=== PATIENT | male | born 1965 | race Hispanic/Latino ===

== ENCOUNTER 2017-10-12 20:24 | Inpatient (IN) | payer MEDICAID, OTHER ==
[2017-10-12 20:26] VITALS: BMI 31.5
--- NOTE | 2017-10-12 20:48 | ED PDOC ---
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 Sister is at bedside and states that brother was at his home with his other brother watching basketball when he stated he did not feel well. Shortly after he started seizing described as shaking all over and foaming at the mouth. Ambulance was called. Patient was combative post ictal and was given 5mg of Versed in the ambulance. Continue to be combative. Sister is unaware if the patient was drinking today. Sister states that the patients last seizure was in May of last year. (Stevenson Jack) Past Medical History - Infectious Disease Hx of Infectious Diseases: None - Tetanus Immunization Tetanus Immunization: Unknown - Cardiac Hx Hypertension: Yes - Pulmonary Hx Respiratory Disorders: Yes Other/Comment: recently lung and stomach nodules found - Neurological Hx Seizures: Yes Other/Comment: tramatic brain injury. - Integumentary Other/Comment: old and new kaiden to back of head, scrapes ad abrasions to arms and legs - Musculoskeletal/Rheumatological Hx Falls: Yes Other/Comment: TBI 08/23 fall 01/25/2014 - Gastrointestinal Hx Gastrointestinal Disorders: Yes - Genitourinary/Gynecological Hx Prostate Cancer: Yes (ONE TESTICLE REMOVED) - Psychiatric Hx Bipolar Disorder: Yes Hx Substance Use: No - Past Surgical History Past Surgical History: Unable to Obtain - Surgical History Hx Musculoskeletal Surgery: Yes (cancerous lymph node found on spine) - Anesthesia Hx Anesthesia Reactions: No Hx Malignant Hyperthermia: No - Suicidal Assessment Feels Threatened In Home Enviroment: No <Stevenson Jack - Last Filed: 10/12/17 22:24> - Provider Review Nursing Documentation Reviewed: Yes <Bakari Humphreys - Last Filed: 10/13/17 00:29> Family/Social History Family/Social History: Unknown Family HX Smoking Status: Heavy Smoker > 10 Cigarettes Daily Hx Alcohol Use: Yes (drinking heavily last couple of days) Hx Substance Use: No Hx Substance Use Treatment: No <MarcieStevenson - Last Filed: 10/12/17 22:24> - Physician Review Nursing Documentation Reviewed: Yes Family/Social History: Unknown Family HX <PetrBakari - Last Filed: 10/13/17 00:29> Allergies/Home Meds <FelixjosebradenStevenson - Last Filed: 10/12/17 22:24> <PetrBakari - Last Filed: 10/13/17 00:29> Allergies/Adverse Reactions: Allergies No Known Allergies Allergy (Verified 10/12/17 20:25) Home Medications: Home Meds Medication Instructions Recorded Confirmed Divalproex Sodium [Divalproex 250 mg PO BID 10/12/17 10/12/17 Sodium ER] Review of Systems - Review of Systems Systems not reviewed;Unavailable: Altered Mental Status Constitutional: Other (prior to siare patient stated he "was not feeling well ") <MarcieStevenson - Last Filed: 10/12/17 22:24> Physical Exam - Physical Exam Physical Exam Limitations: Altered Mental Status Vital Signs Reviewed: Yes Temperature: Afebrile Blood Pressure: Normal Pulse: Tachycardic Respiratory Rate: Normal Appearance: Positive for: Ill-Appearing Pain Distress: None Mental Status: Positive for: Confused. No: Alert and Oriented X 3 - Systems Exam Head: Present: Atraumatic, Normocephalic Pupils: No: Sluggish, Non-Reactive, Pinpoint Extroacular Muscles: Present: EOMI Conjunctiva: Present: Normal Mouth: Present: Moist Mucous Membranes Neck: Present: Normal Range of Motion Respiratory/Chest: Present: Clear to Auscultation, Good Air Exchange. No: Respiratory Distress, Accessory Muscle Use Cardiovascular: Present: Regular Rate and Rhythm, Normal S1, S2, Tachycardic. No: Murmurs Abdomen: Present: Normal Bowel Sounds. No: Tenderness, Distention, Peritoneal Signs Upper Extremity: Present: Normal Inspection Lower Extremity: Present: Normal Inspection Neurological: Present: GCS=15, CN II-XII Intact, Speech Normal Skin: Present: Warm, Dry, Normal Color. No: Rashes Psychiatric: Present: Alert. No: Oriented x 3 <MarcieStevenson - Last Filed: 10/12/17 22:24> Vital Signs Pulse Resp BP Pulse Ox 10/12/17 20:49 112 H 18 138/85 95 Medical Decision Making <JavierStevenson feliciano - Last Filed: 10/12/17 22:24> - Lab Interpretations I have reviewed the lab results: Yes - RAD Interpretation Optical Technician: Radiologist - EKG Interpretation Interpreted by ED Physician: Yes Type: 12 lead EKG <Bakari Humphreys - Last Filed: 10/13/17 00:29> ED Course and Treatment: 10/12/17 20:48 patient continue to be combative in the ED. 2mg of Ativan was given. Patient proceeded to become less combative. Will check labs, alcohol level, UDS (Stevenson Jack) Impression: Pt seen and evaluated with medical records analyst. Aware and agree with HPI, clinical findings, plan, and managment. Pt, whose past medical history includes seizure disorder and alcohol abuse, presented s/p seizure today. Plan: -- CT Head w/o contrast -- Labs, VBG, alcohol level, blood cultures -- Urinalysis, urine cultures, urine drug screen -- Ativan -- IV fluids -- Reassess and disposition 10/12/17 21:58 CT Head shows: Brain: Mild atrophy. No intracranial hemorrhage. No mass. Mild encephalomalacia within right frontal region. Mild encephalomalacia within right temporal region. No definite edema. Ventricles: No hydrocephalus. Bones/joints: No acute fracture. Soft tissues: Unremarkable. Vasculature: Mild atherosclerotic disease of intracranial arteries. Sinuses: Scattered minimal mucosal thickening. LEFT maxillary retention cyst. Mastoid air cells: No mastoid effusion. Orbits: Unremarkable as visualized. Dental: Periapical lucency compatible with dental disease. IMPRESSION: 1. No definite acute intracranial abnormality. 2. Incidental/non-acute findings are described above. 10/12/17 22:19 Case discussed with medical records analyst final operations technician, who is aware and agrees with plan. 10/12/17 22:[address] Jimenez, who is aware and agrees to evaluate pt for possible ICU admission. 10/12/17 23:[address] Jimenez, present in ER to evaluate pt. Pt will be admitted to Telemetry for recurrent seizures under the hospitalist service. (Bakari Humphreys) - Lab Interpretations Lab Results: 10/12/17 20:34 10/12/17 20:34 Lab Results 10/12/17 23:20: Urine Color Yellow, Urine Appearance Sl cloudy, Urine pH 6.0, Ur Specific [place] 1.015, Urine Protein Trace H, Urine Glucose (UA) Negative, Urine Ketones Trace H, Urine Blood Small H, Urine Nitrate Negative, Urine Bilirubin Negative, Urine Urobilinogen 0.2, Ur Leukocyte Esterase Negative, Urine RBC 1 - 3, Urine WBC 0 - 2, Ur Epithelial Cells 0 - 2, Urine Bacteria Few 10/12/17 23:20: Urine Opiates Screen Negative, Urine Methadone Screen Negative, Ur Barbiturates Screen Negative, Ur Phencyclidine Scrn Negative, Ur Amphetamines Screen Negative, U Benzodiazepines Scrn Positive, U Oth Cocaine Metabols Negative, U Cannabinoids Screen Positive H 10/12/17 21:42: pO2 160 H, VBG pH 7.39, VBG pCO2 27.0 L, VBG HCO3 16.3 L, VBG Total CO2 17.1 L, VBG O2 Sat (Calc) 99.5 H, VBG Base Excess -7.1 L, VBG Potassium 3.0 L, Glucose 141 H, Lactate 10.0 H*, FiO2 21.0, Sodium 128.0 L, Chloride 92.0 L, Venous Blood Potassium 3.0 L 10/12/17 20:34: Lactate Dehydrogenase 627, Total Creatine Kinase 298 H, CK-MB ( CK-2) 3.2, CK-MB (CK-2) % Cancelled, Troponin I < 0.01 10/12/17 20:34: Alcohol, Quantitative < 10 10/12/17 20:34: Sodium 132, Potassium 3.5 L, Chloride 91 L, Carbon Dioxide 7 L D , Anion Gap 38 H, BUN 4 L, Creatinine 0.8, Est GFR ( Amer) > 60, Est GFR (Non-Af Amer) > 60, Random Glucose 186 H, Calcium 9.5, Magnesium 1.9, Total Bilirubin 0.8, AST 137 H, ALT 87 H, Alkaline Phosphatase 83, Total Protein 8.2, Albumin 5.0 H, Globulin 3.1, Albumin/Globulin Ratio 1.6 10/12/17 20:34: WBC 10.2 D, RBC 4.30, Hgb 14.8, Hct 42.3, MCV 98.4, MCH 34.4, MCHC 35.0, RDW 12.9, Plt Count 119 L, MPV 11.8 H, Gran % 62.6, Lymph % (Auto) 27.7, [place] % (Auto) 8.9 H, Eos % (Auto) 0.3 L, Baso % (Auto) 0.5, Gran # 6.41, Lymph # (Auto) 2.8, [place] # (Auto) 0.9 H, Eos # (Auto) 0.0, Baso # (Auto) 0.05 10/12/17 20:28: POC Glucose (mg/dL) 188 H - RAD Interpretation Radiology Orders: 10/12/17 20:43 HEAD W/O CONTRAST [CT] Stat - Medication Orders Current Medication Orders: Amlodipine Besylate (Norvasc) 5 mg PO DAILY [facility] Divalproex Sodium (Depakote Dr (*Bid*)) 250 mg PO BID [facility] PRN Reason: Protocol Folic Acid (Folic Acid) 1 mg PO DAILY [facility] Heparin Sodium (Porcine) (Heparin) 5,000 units SC Q12 [facility]AND PRN Reason: Protocol Sodium Chloride (Sodium Chloride 0.9%) 2,000 mls @ 999 mls/hr IV .Q2H1M STA Stop: 10/13/17 01:10 Last Admin: 10/12/17 23:36 Dose: 999 mls/hr eMAR Start Stop Document 10/12/17 23:36 BOLIVAR (Rec: 10/12/17 23:36 BOLIVAR [id number]) Intravenous Solution Start Date 10/12/17 Start Time 23:36 End Date 10/12/17 Sodium Chloride (Sodium Chloride 0.9%) 1,000 mls @ 150 mls/hr IV .Q6H40M [facility] Levetiracetam (Keppra 500mg Ivpb) 500 mg in 100 mls @ 460 mls/hr IV Q12 ROLAND Last Admin: 10/12/17 23:35 Dose: 460 mls/hr eMAR Start Stop Document 10/12/17 23:35 BOLIVAR (Rec: 10/12/17 23:36 BOLIVAR [id number]) Intravenous Solution Start Date 10/12/17 Start Time 23:35 End Date 10/12/17 End time 23:50 Total Infusion Time 15 Insulin Human Regular (Humulin R Low) 0 units SC ACHS [facility] PRN Reason: Protocol Lorazepam (Ativan) 2 mg IVP Q6H PRN; Protocol PRN Reason: Seizure activity Nicotine (Nicoderm Cq) 1 patch TD DAILY [facility] Pantoprazole Sodium (Protonix Inj) 40 mg IVP DAILY [facility] Quetiapine Fumarate (Seroquel Xr) 200 mg PO DAILY [facility] PRN Reason: Protocol Thiamine HCl (Vitamin B1 Tab) 100 mg PO DAILY [facility] Discontinued Medications Sodium Chloride (Sodium Chloride 0.9%) 1,000 mls @ 1,000 mls/hr IV .Q1H STA Stop: 10/12/17 21:49 Last Admin: 10/12/17 20:38 Dose: 1,000 mls/hr eMAR Start Stop Document 10/12/17 20:38 BOLIVAR (Rec: 10/12/17 22:32 BOLIVAR [id number]) Intravenous Solution Start Date 10/12/17 Start Time 20:38 End Date 10/12/17 End time 21:08 Total Infusion Time 30 Sodium Chloride (Sodium Chloride 0.9%) 1,000 mls @ 999 mls/hr IV .Q1H1M STA Stop: 10/12/17 23:06 Last Admin: 10/12/17 22:31 Dose: 999 mls/hr eMAR Start Stop Document 10/12/17 22:31 BOLIVAR (Rec: 10/12/17 22:29 BOLIVAR [id number]) Intravenous Solution Start Date 10/12/17 Start Time 22:31 End Date 10/12/17 End time 23:31 Total Infusion Time 60 Lorazepam (Ativan) 2 mg IVP ONCE ONE PRN Reason: Protocol Stop: 10/12/17 20:30 Last Admin: 10/12/17 20:32 Dose: 2 mg IVP Administration Document 10/12/17 20:32 BOLIVAR (Rec: 10/12/17 20:50 BOLIVAR [id number]) Charges for Administration # of IVP Administrations 1 Lorazepam (Ativan) 2 mg IVP ONCE ONE PRN Reason: Protocol Stop: 10/12/17 20:40 Last Admin: 10/12/17 21:19 Dose: 2 mg IVP Administration Document 10/12/17 21:19 BOLIVAR (Rec: 10/12/17 21:19 BOLIVAR [id number]) Charges for Administration # of IVP Administrations 1 Potassium Chloride (Potassium Chloride Oral Soln) 40 meq PO STAT STA Stop: 10/12/17 23:10 - PA / DOCK WORKER / Resident Statement / has reviewed & agrees with the documentation as recorded. / has examined the patient and agrees with the treatment plan. <Bakari Humphreys - Last Filed: 10/13/17 00:29> Disposition/Present on Arrival - Present on Arrival Any Indicators Present on Arrival: No History of DVT/PE: No History of Uncontrolled Diabetes: No Urinary Catheter: Yes (inserted in er) History of Decub. Ulcer: No History Surgical Site Infection Following: None - Disposition Have Diagnosis and Disposition been Completed?: Yes Disposition Time: 22:24 Patient Plan: ICU <Stevenson Jack - Last Filed: 10/12/17 22:24> <Bakari Humphreys - Last Filed: 10/13/17 00:29> - Disposition Diagnosis: Seizure Patient Problems: Current Active Problems Problem Status Onset Seizure Acute Condition: GUARDED
[2017-10-12] MEDS ORDERED: Sodium Chloride 0.9% 1,000 ML IV STA ×2 (20:50→22:06)
[2017-10-12 20:57] LABS: BASO # 0.05 K/mm3 (0.0-2.0); BASO % 0.5 % (0.0-3.0); EOS % 0.3 % (1.5-5.0); GRAN # 6.41 (1.4-6.5); GRAN % 62.6 % (50.0-68.0); HEMOGLOBIN 14.8 g/dL (14.0-18.0); LYMPH # 2.8 (1.2-3.4); LYMPH % 27.7 % (22.0-35.0); MEAN CELL VOLUME 98.4 fl (80.0-105.0); MEAN CORPUSCULAR HEMOGLOBIN 34.4 pg (25.0-35.0); MEAN PLATELET VOLUME 11.8 fl (7.0-11.0); MONO # 0.9 (0.1-0.6); MONO % 8.9 % (1.0-6.0); RBC 4.3 10^6/uL (3.5-6.1); RED CELL DISTRIBUTION WIDTH 12.9 % (11.5-14.5); WHITE BLOOD COUNT 10.2 10^3/ul (4.5-11.0)
[2017-10-12 21:07] LABS: ALB/GLOB RATIO 1.6 (1.1-1.8); ALT/SGPT 87 U/L (7-56); BLOOD UREA NITROGEN 4 mg/dL (7-21); CALCIUM 9.5 mg/dL (8.4-10.5); GFR AFRICAN-AMERICAN > 60; GFR NON-AFRICAN AMERICAN > 60
[2017-10-12 21:36] LABS: AST/SGOT 137 U/L (17-59)
--- NOTE | 2017-10-12 21:57 | CT ---
EXAM: CT Head Without Intravenous Contrast CLINICAL HISTORY: 52 years old, male; Signs and symptoms; Other: Seizure TECHNIQUE: Axial computed tomography images of the head/brain without intravenous contrast. All CT scans at this facility use one or more dose reduction techniques, viz.: automated exposure control; ma/kV adjustment per patient size (including targeted exams where dose is matched to indication; i.e. head); or iterative reconstruction technique. Coronal and sagittal reformatted images were created and reviewed. COMPARISON: CT - HEAD W/O CONTRAST 2016-08-18 16:49 FINDINGS: Brain: Mild atrophy. No intracranial hemorrhage. No mass. Mild encephalomalacia within right frontal region. Mild encephalomalacia within right temporal region. No definite edema. Ventricles: No hydrocephalus. Bones/joints: No acute fracture. Soft tissues: Unremarkable. Vasculature: Mild atherosclerotic disease of intracranial arteries. Sinuses: Scattered minimal mucosal thickening. LEFT maxillary retention cyst. Mastoid air cells: No mastoid effusion. Orbits: Unremarkable as visualized. Dental: Periapical lucency compatible with dental disease. IMPRESSION: 1. No definite acute intracranial abnormality. 2. Incidental/non-acute findings are described above.
[2017-10-12 22:01] LABS: VENOUS BLOOD GAS BASE EXCESS -7.1 mmol/L (0.0-2.0); VENOUS BLOOD GAS PO2 160 mm/Hg (30-55); VENOUS BLOOD PH 7.39 (7.32-7.43)
[2017-10-12 22:24] LABS: TROPONIN I < 0.01 ng/mL
--- NOTE | 2017-10-12 22:56 | CP.PCM.HP ---
History of Present Illness - History of Present Illness History of Present Illness: CC: Seizure at home Patient is a 52 y/o Male with pmh of traumatic ICH, chronic alcohol abuse, gerd , htn, seizure disorders, heavy tobacco abuse, mood disorder, h/o metastatic testicular cancer s/p surgery, chemo and radiation presenting s/p seizure like activities at home. As per patient's sisters, patient was watching TV with his brother earlier today when he complained of abdominal pain, vomited multiple time, non bilious and non bloody. Then later on patient had tonic clonic seizure activity that lasted over 5 minutes, with foaming of the mouth. Denies bowel/bladder incontinent. Patient was combative post ictal, and was giving versed on the arrival of the ambulance. Patient was diagnosed with seizure over 5 years ago, had traumatic intracranial hemorrhage after sustaining trauma during the seizure in 2013, patient was at the time intubated, was trached and pegged and sent to group home ( trach and peg has since reversed). As per patient's sisters' since the trauma patient has been struggling with mood disorders, and have problems with recalls. According to sisters, patient's complaint with his antiepileptic meds for the most part, last seizure prior to this episode was in May because he missed a dose, denied missing his morning dose today. States patient used to be a heavy alcohol abuser, but have not had alcohol for a while. Patient is s/p ativan in the ED, thus patient appears very drowsy, but arousable , denies eating any new foods, denies fever or chills, no abdominal pain at this moment. Denies dysurea, no cp or sob. Patient sees Dr Doll (PMD), doesn't have a neurologist. Pharmacy: [facility]. PMHx: as stated above pshx: testicular surgery, abdominal surgery, trach and peg FMHx: positive for seizures in the family Social: Admits to heavy tobacco use, denies recent alcohol use, but admits to history of chronic alcohol, denies illicit drug use. Lived with his brother. Home meds: as per chart Allergy: nkda. Present on Admission - Present on Admission Any Indicators Present on Admission: No History of DVT/PE: No History of Uncontrolled Diabetes: No Urinary Catheter: No Decubitus Ulcer Present: No History Surgical Site Infection Following: None Review of Systems - Constitutional Constitutional: Lethargy. absent: Chills, Fatigue, Fever, Headache - EENT Eyes: absent: Blurred Vision Nose/Mouth/Throat: absent: Nasal Congestion, Sore Throat - Cardiovascular Cardiovascular: absent: Chest Pain, Chest Pain at Rest, Claudication, Diaphoresis, Orthopnea, Palpitations, Pedal Edema - Respiratory Respiratory: absent: Cough, Dyspnea, Hemoptysis, Wheezing - Gastrointestinal Gastrointestinal: absent: Abdominal Pain, Belching, Bloating, Cramping, Diarrhea , Dyspepsia - Genitourinary Genitourinary: absent: Difficulty Urinating, Dysuria, Hematuria, Nocturia - Musculoskeletal Musculoskeletal: Myalgias. absent: Back Pain, Muscle Weakness - Integumentary Integumentary: absent: Pruritus - Neurological Neurological: absent: Abnormal Hearing, Disequilibrium, Dizziness, Numbness, Headaches - Psychiatric Psychiatric: Anxiety - Endocrine Endocrine: absent: Fatigue, Palpitations - Hematologic/Lymphatic Hematologic: absent: Easy Bleeding Past Patient History - Infectious Disease Hx of Infectious Diseases: None - Tetanus Immunizations Tetanus Immunization: Unknown - Past Social History Smoking Status: Heavy Smoker > 10 Cigarettes Daily - CARDIAC Hx Hypertension: Yes - PULMONARY Hx Respiratory Disorders: Yes Other/Comment: recently lung and stomach nodules found - NEUROLOGICAL Hx Seizures: Yes Other/Comment: tramatic brain injury. - INTEGUMENTARY Other/Comment: old and new kaiden to back of head, scrapes ad abrasions to arms and legs - MUSCULOSKELETAL/RHEUMATOLOGICAL Hx Falls: Yes Other/Comment: TBI 08/23 fall 01/25/2014 - GASTROINTESTINAL Hx Gastrointestinal Disorders: Yes - GENITOURINARY/GYNECOLOGICAL Hx Prostate Cancer: Yes (ONE TESTICLE REMOVED) - PSYCHIATRIC Hx Bipolar Disorder: Yes Hx Substance Use: No - SURGICAL HISTORY Hx Musculoskeletal Surgery: Yes (cancerous lymph node found on spine) - ANESTHESIA Hx Anesthesia Reactions: No Hx Malignant Hyperthermia: No Meds Allergies/Adverse Reactions: Allergies Allergy/AdvReac Type Severity Reaction Status Date / Time No Known Allergies Allergy Verified 10/12/17 20:25 Physical Exam - Constitutional Appears: No Acute Distress, Older Than Stated Age, Confused (mild ), Chronically Ill - Head Exam Head Exam: ATRAUMATIC, NORMAL INSPECTION, NORMOCEPHALIC - Eye Exam Eye Exam: EOMI, Normal appearance, PERRL. absent: Scleral icterus Pupil Exam: NORMAL ACCOMODATION, PERRL - ENT Exam ENT Exam: Mucous Membranes Dry, Normal Exam Additional comments: No tongue bite noted. - Neck Exam Neck exam: Positive for: Normal Inspection - Respiratory Exam Respiratory Exam: Clear to Auscultation Bilateral, NORMAL BREATHING PATTERN. absent: Rales, Rhonchi, Wheezes, Respiratory Distress, Stridor - Cardiovascular Exam Cardiovascular Exam: REGULAR RHYTHM, RRR, +S1, +S2. absent: Bradycardia, Tachycardia, Gallop, Irregular Rhythm, Rubs, Systolic Murmur - GI/Abdominal Exam GI & Abdominal Exam: Hernia (reducible.), Normal Bowel Sounds, Soft. absent: Diminished Bowel Sounds, Distended, Firm, Guarding, Rebound, Rigid, Tenderness Additional comments: + old surgical incision, well healed, no signs of infection. - Extremities Exam Extremities exam: Negative for: pedal edema, tenderness, pedal pulses present Additional comments: + bruising on the chin jonathan. - Back Exam Back exam: NORMAL INSPECTION. absent: paraspinal tenderness - Neurological Exam Additional comments: Drowsy, and sleepy, but arousable, slow to respond. Follows simple commands. No focal neurologic deficit. - Psychiatric Exam Psychiatric exam: Flat Affect - Skin Skin Exam: Abrasion, Dry, Rash Results - Vital Signs Recent Vital Signs: Last Vital Signs Temp Pulse 112 H 10/12/17 20:49 Resp 18 10/12/17 20:49 BP 138/85 10/12/17 20:49 Pulse Ox 95 10/12/17 20:49 - Labs Result Diagrams: 10/12/17 20:34 10/12/17 20:34 Labs: Laboratory Results - last 24 hr 10/12/17 10/12/17 10/12/17 20:28 20:34 20:34 WBC 10.2 D RBC 4.30 Hgb 14.8 Hct 42.3 MCV 98.4 MCH 34.4 MCHC 35.0 RDW 12.9 Plt Count 119 L MPV 11.8 H Gran % 62.6 Lymph % (Auto) 27.7 [place] % (Auto) 8.9 H Eos % (Auto) 0.3 L Baso % (Auto) 0.5 Gran # 6.41 Lymph # (Auto) 2.8 [place] # (Auto) 0.9 H Eos # (Auto) 0.0 Baso # (Auto) 0.05 pO2 VBG pH VBG pCO2 VBG HCO3 VBG Total CO2 VBG O2 Sat (Calc) VBG Base Excess VBG Potassium Glucose Lactate FiO2 Sodium 132 Potassium 3.5 L Chloride 91 L Carbon Dioxide 7 L D Anion Gap 38 H BUN 4 L Creatinine 0.8 Est GFR ( Amer) > 60 Est GFR (Non-Af Amer) > 60 POC Glucose (mg/dL) 188 H Random Glucose 186 H Calcium 9.5 Magnesium 1.9 Total Bilirubin 0.8 AST 137 H ALT 87 H Alkaline Phosphatase 83 Lactate Dehydrogenase Total Creatine Kinase CK-MB (CK-2) CK-MB (CK-2) % Troponin I Total Protein 8.2 Albumin 5.0 H Globulin 3.1 Albumin/Globulin Ratio 1.6 Venous Blood Potassium Alcohol, Quantitative 10/12/17 10/12/17 10/12/17 20:34 20:34 21:42 WBC RBC Hgb Hct MCV MCH MCHC RDW Plt Count MPV Gran % Lymph % (Auto) [place] % (Auto) Eos % (Auto) Baso % (Auto) Gran # Lymph # (Auto) [place] # (Auto) Eos # (Auto) Baso # (Auto) pO2 160 H VBG pH 7.39 VBG pCO2 27.0 L VBG HCO3 16.3 L VBG Total CO2 17.1 L VBG O2 Sat (Calc) 99.5 H VBG Base Excess -7.1 L VBG Potassium 3.0 L Glucose 141 H Lactate 10.0 H* FiO2 21.0 Sodium 128.0 L Potassium Chloride 92.0 L Carbon Dioxide Anion Gap BUN Creatinine Est GFR ( Amer) Est GFR (Non-Af Amer) POC Glucose (mg/dL) Random Glucose Calcium Magnesium Total Bilirubin AST ALT Alkaline Phosphatase Lactate Dehydrogenase 627 Total Creatine Kinase 298 H CK-MB (CK-2) 3.2 CK-MB (CK-2) % Cancelled Troponin I < 0.01 Total Protein Albumin Globulin Albumin/Globulin Ratio Venous Blood Potassium 3.0 L Alcohol, Quantitative < 10 - EKG Data EKG Interpreted by: Myself EKG shows normal: Sinus rhythm Rate: Tachycardia (With non specific ST/T wave changes. ) Assessment & Plan - Assessment and Plan (Free Text) Assessment: Patient is a 52 y/o Male with pmh of traumatic ICH, chronic alcohol abuse, gerd , htn, seizure disorders, heavy tobacco abuse, mood disorder, h/o metastatic testicular cancer s/p surgery, chemo and radiation presenting s/p seizure like activities at home. Plan: 1) Breakthrough seizures - Likely due to dehydration from vomiting, versus medication non compliance, versus alcohol abuse/withdrawal. - R/o infectious, r/o cva - Patient had CT head with no acute findings - Will hydrate and correct electrolytes imbalance - etoh level normal, will obtain utox and tsh. - will obtain Depakote and keppra level - will order eeg - npo except meds, pending swallow eval. - resume keppra, Depakote and divalproex at home dose - Neurology consulted - seizure and fall precautions. - Ativan prn for seizures. 2) Anion gap metabolic acidosis- Lactic acidosis likely due to vomiting and or seizure activity - Lactic acid of 10, with ph of 7.39. - No signs of infection at this time - will hydrate, and obtain ABG with shock panel - will trend lactic acid 3) Gastritis- vomiting resolved, will hydrate with ivf with NS boluses and NS @ 150 ml/hr. 4) Hyperglycemia- denies prior history of diabetes - will obtain hgba1c, will start low dose insulin sliding scale, fingersticks q8. 5) Hypokalemia- likely from gi losses, will replete, obtain mag and monitor. 6) Transaminitis - Likely alcohol induced, will trend lfts, consider hep panel. 7) Mildly elevated cpk- will hydrate and trend the cpk. 8) H/O HTN- will continue Norvasc. 9) H/O GERD- started on protonix. 10) DVT prophylaxis: heparin sc. 11) Tobacco abuse- nicotine pacth 12) h/o tobacco abuse - etoh negative - started on po thiamine and folic acid - monitor for withdrawals 13) Gait instability- PT eval. Patient seen, examined and case discussed with Dr Jimenez. - Date & Time Date: 10/13/17 Time: 12:20
[2017-10-12] MEDS ORDERED: Potassium Chloride 40 mEq/30 ml LIQ UD PO STA (23:09)
[2017-10-12] MEDS ORDERED: Sodium Chloride 0.9% 2,000 ML IV STA (23:10)
[2017-10-12] MEDS ORDERED: Sodium Chloride 0.9% 1,000 ML IV SCH (23:15)
[2017-10-12] MEDS: levETIRAcetam 500mg IVPB 500 MG/100 ML BAG IV SCH (23:35)
[2017-10-12 23:44] LABS: URINE BILIRUBIN NEGATIVE (NEGATIVE); URINE BLOOD SMALL (NEGATIVE); URINE GLUCOSE (UA) NEGATIVE (NEGATIVE); URINE LEUKOCYTE ESTERASE NEGATIVE Leu/uL (NEGATIVE); URINE PROTEIN TRACE mg/dL (<30 mg/dL); URINE UROBILINOGEN 0.2 E.U./dL (<1 E.U./dL)
[2017-10-12 23:49] LABS: CK-MB 3.2 ng/mL (0.0-3.6)
[2017-10-12 23:58] LABS: URINE APPEARANCE SL CLOUDY (CLEAR); URINE COLOR YELLOW (YELLOW)
[2017-10-12 23:59] LABS: URINE BACTERIA FEW (NEG); URINE EPITHELIAL CELLS 0 - 2 /hpf (0-5); URINE WBC 0 - 2 /hpf (0-6)
[2017-10-13 00:05] LABS: BARBITURATES, UR NEGATIVE (NEGATIVE); BENZODIAZEPINES, UR POSITIVE (NEGATIVE); OPIATES, UR NEGATIVE (NEGATIVE); PHENCYCLIDINE, UR NEGATIVE (NEGATIVE)
[2017-10-13] MEDS: Divalproex 250 mg DR (BID formulation) PO SCH ×3 (01:08→18:36)
[2017-10-13] MEDS ORDERED: Multivitamin (MVI) 10 ML, Thiamine 100 MG, Folic Acid 1 MG in Sodium Chloride 0.9% 1,00... IV ONE (03:42)
[2017-10-13] MEDS: Sodium Chloride 0.9% 1,000 ML IV SCH (04:41)
[2017-10-13 06:34] LABS: VENOUS BLOOD GAS BASE EXCESS 1.1 mmol/L (0.0-2.0); VENOUS BLOOD GAS PO2 144 mm/Hg (30-55); VENOUS BLOOD PH 7.44 (7.32-7.43)
[2017-10-13 06:49] LABS: BASO # 0.01 K/mm3 (0.0-2.0); BASO % 0.4 % (0.0-3.0); EOS % 1.2 % (1.5-5.0); GRAN # 1.37 (1.4-6.5); GRAN % 52.8 % (50.0-68.0); LYMPH # 0.7 (1.2-3.4); LYMPH % 26.3 % (22.0-35.0); MEAN CELL VOLUME 94.6 fl (80.0-105.0); MEAN CORPUSCULAR HEMOGLOBIN 33.4 pg (25.0-35.0); MEAN CORPUSCULAR HGB CONC 35.3 g/dl (31.0-37.0); MEAN PLATELET VOLUME 11.3 fl (7.0-11.0); MONO # 0.5 (0.1-0.6); MONO % 19.3 % (1.0-6.0); RBC 3.68 10^6/uL (3.5-6.1); RED CELL DISTRIBUTION WIDTH 12.8 % (11.5-14.5)
[2017-10-13 06:55] LABS: ALB/GLOB RATIO 1.3 (1.1-1.8); ALBUMIN 3.5 g/dL (3.0-4.8); ALT/SGPT 72 U/L (7-56); AST/SGOT 102 U/L (17-59); BLOOD UREA NITROGEN 3 mg/dL (7-21); CALCIUM 8.4 mg/dL (8.4-10.5); GFR AFRICAN-AMERICAN > 60; GFR NON-AFRICAN AMERICAN > 60
[2017-10-13 07:24] LABS: HEMOGLOBIN 12.3 g/dL (14.0-18.0); WHITE BLOOD COUNT 2.6 10^3/ul (4.5-11.0)
[2017-10-13 08:16] LABS: CK MB% 0.3 % (2.5-3.0); CK-MB 7.3 ng/mL (0.0-3.6)
[2017-10-13] MEDS: Insulin Reg-LOW-Coverage SC SCH ×4 (09:09→22:00)
[2017-10-13] MEDS ORDERED: QUEtiapine 200 mg XR Tab PO SCH (10:00)
[2017-10-13] MEDS: levETIRAcetam 500mg IVPB 500 MG/100 ML BAG IV SCH (10:24)
[2017-10-13] MEDS: Potassium & Sodium Phosphate PO SCH ×3 (10:44→18:36)
[2017-10-13] MEDS: Potassium Chloride 20 mEq ER Tab PO SCH ×2 (12:00→15:30)
[2017-10-13 12:06] LABS: BASO # 0.01 K/mm3 (0.0-2.0); BASO % 0.3 % (0.0-3.0); EOS % 0.9 % (1.5-5.0); GRAN # 2.3 (1.4-6.5); GRAN % 66.4 % (50.0-68.0); HEMOGLOBIN 13.4 g/dL (14.0-18.0); LYMPH # 0.7 (1.2-3.4); LYMPH % 19.7 % (22.0-35.0); MEAN CELL VOLUME 95.2 fl (80.0-105.0); MEAN CORPUSCULAR HEMOGLOBIN 33.7 pg (25.0-35.0); MEAN CORPUSCULAR HGB CONC 35.4 g/dl (31.0-37.0); MEAN PLATELET VOLUME 11.3 fl (7.0-11.0); MONO # 0.4 (0.1-0.6); MONO % 12.7 % (1.0-6.0); RBC 3.98 10^6/uL (3.5-6.1); WHITE BLOOD COUNT 3.5 10^3/ul (4.5-11.0)
[2017-10-13 12:26] LABS: BLOOD UREA NITROGEN 3 mg/dL (7-21); CALCIUM 8.5 mg/dL (8.4-10.5); GFR AFRICAN-AMERICAN > 60; GFR NON-AFRICAN AMERICAN > 60
--- NOTE | 2017-10-13 19:16 | CP.PCM.CON ---
History of Present Illness - History of Present Illness History of Present Illness: Mr. 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 His most recent seizure was in May when he missed his dose of depakote He states that he is compliant with his AEDs at home and denies alcohol use. He has been agitated and was given Seroquel and Geodon, but he did not seem to respond well. Benzodiazepines are also causing a paradoxical agitation per nursing. Review of Systems - Review of Systems All systems: reviewed and no additional remarkable complaints except Past Patient History - Infectious Disease Hx of Infectious Diseases: None - Tetanus Immunizations Tetanus Immunization: Unknown - Past Social History Smoking Status: Heavy Smoker > 10 Cigarettes Daily - CARDIAC Hx Hypertension: Yes - PULMONARY Hx Respiratory Disorders: Yes Other/Comment: recently lung and stomach nodules found - NEUROLOGICAL Hx Neurological Disorder: Yes (tramatic brain injury,syncope) Hx Seizures: Yes - HEENT Hx HEENT Problems: Yes (uses eyeglasses) - HEMATOLOGICAL/ONCOLOGICAL Hx Cancer: Yes (testicular; chemo/radiation) - INTEGUMENTARY Hx Dermatological Problems: Yes Other/Comment: old and new kaiden to back of head, scrapes ad abrasions to arms and legs - MUSCULOSKELETAL/RHEUMATOLOGICAL Hx Musculoskeletal Disorders: Yes Hx Falls: Yes Hx Fractures: Yes (left wrist, shoulder) Other/Comment: TBI / fall 01/25/2014 - GASTROINTESTINAL Hx Gastroesophageal Reflux: Yes - GENITOURINARY/GYNECOLOGICAL Hx Prostate Cancer: Yes (ONE TESTICLE REMOVED) - PSYCHIATRIC Hx Psychophysiologic Disorder: Yes (etoh and smoker) Hx Bipolar Disorder: Yes Hx Depression: Yes Hx Substance Use: No - SURGICAL HISTORY Hx Surgeries: Yes Hx Musculoskeletal Surgery: Yes (cancerous lymph node found on spine) - ANESTHESIA Hx Anesthesia Reactions: No Hx Malignant Hyperthermia: No Meds Allergies/Adverse Reactions: Allergies Allergy/AdvReac Type Severity Reaction Status Date / Time No Known Allergies Allergy Verified 10/12/17 20:25 - Medications Medications: Current Medications Amlodipine Besylate (Norvasc) 5 mg PO DAILY [facility] Last Admin: 10/13/17 10:23 Dose: 5 mg Chlordiazepoxide (Librium) 25 mg PO Q8 [facility] PRN Reason: Protocol Last Admin: 10/13/17 15:31 Dose: 25 mg Divalproex Sodium (Depakote Dr (*Bid*)) 250 mg PO BID [facility] PRN Reason: Protocol Last Admin: 10/13/17 18:36 Dose: 250 mg Folic Acid (Folic Acid) 1 mg PO DAILY [facility] Last Admin: 10/13/17 10:23 Dose: 1 mg Heparin Sodium (Porcine) (Heparin) 5,000 units SC Q12 [facility] PRN Reason: Protocol Last Admin: 10/13/17 10:24 Dose: 5,000 units Levetiracetam (Keppra 500mg Ivpb) 500 mg in 100 mls @ 460 mls/hr IV Q12 [facility] Last Admin: 10/13/17 10:24 Dose: 460 mls/hr Sodium Chloride (Sodium Chloride 0.9%) 1,000 mls @ 50 mls/hr IV .Q20H [facility] Last Admin: 10/13/17 04:41 Dose: 50 mls/hr Insulin Human Regular (Humulin R Low) 0 units SC ACHS [facility] PRN Reason: Protocol Last Admin: 10/13/17 18:36 Dose: Not Given Lorazepam (Ativan) 2 mg IVP Q1H PRN; Protocol PRN Reason: Seizure activity Last Admin: 10/13/17 17:30 Dose: 2 mg Nicotine (Nicoderm Cq) 1 patch TD DAILY [facility] Last Admin: 10/13/17 10:23 Dose: 1 patch Pantoprazole Sodium (Protonix Inj) 40 mg IVP DAILY [facility] Last Admin: 10/13/17 10:21 Dose: 40 mg Potassium Phos/Sodium Phos (Neutra-Phos) 1 pkt PO TID [facility] Stop: 10/16/17 10:01 Last Admin: 10/13/17 18:36 Dose: 1 pkt Quetiapine Fumarate (Seroquel Xr) 200 mg PO DAILY [facility] PRN Reason: Protocol Last Admin: 10/13/17 10:22 Dose: 200 mg Thiamine HCl (Vitamin B1 Tab) 100 mg PO DAILY [facility] Last Admin: 10/13/17 10:23 Dose: 100 mg Ziprasidone (Geodon Inj) 20 mg IM Q6H PRN; Protocol PRN Reason: Agitation Last Admin: 10/13/17 19:05 Dose: 20 mg Physical Exam - Constitutional Appears: Well - Head Exam Head Exam: ATRAUMATIC, NORMAL INSPECTION, NORMOCEPHALIC - Eye Exam Eye Exam: EOMI, Normal appearance, PERRL - ENT Exam ENT Exam: Mucous Membranes Moist, Normal Exam - Cardiovascular Exam Cardiovascular Exam: REGULAR RHYTHM - GI/Abdominal Exam GI & Abdominal Exam: Normal Bowel Sounds, Soft. absent: Tenderness - Rectal Exam Rectal Exam: Deferred - Neurological Exam Neurological exam: Alert, CN II-XII Intact, Oriented x3, Reflexes Normal Additional comments: Currently restrained due to agitation, but follows commands normally and does not have any focal neurological deficits. He answer questions appropriately. Results - Vital Signs Recent Vital Signs: Last Vital Signs Temp 98.8 F 10/13/17 18:00 Pulse 97 H 10/13/17 18:00 Resp 19 10/13/17 18:00 BP 110/72 10/13/17 18:00 Pulse Ox 96 10/13/17 06:00 - Labs Result Diagrams: 10/13/17 11:50 10/13/17 11:50 Labs: Laboratory Results - last 24 hr 10/13/17 10/13/17 10/13/17 06:00 06:00 06:00 WBC 2.6 L* D RBC 3.68 Hgb 12.3 L D Hct 34.8 L MCV 94.6 D MCH 33.4 MCHC 35.3 RDW 12.8 Plt Count 62 L MPV 11.3 H Gran % 52.8 Lymph % (Auto) 26.3 [place] % (Auto) 19.3 H Eos % (Auto) 1.2 L Baso % (Auto) 0.4 Gran # 1.37 L Lymph # (Auto) 0.7 L [place] # (Auto) 0.5 Eos # (Auto) 0.0 Baso # (Auto) 0.01 pO2 144 H VBG pH 7.44 H VBG pCO2 37.0 L VBG HCO3 25.1 VBG Total CO2 26.2 VBG O2 Sat (Calc) 99.4 H VBG Base Excess 1.1 VBG Potassium 3.0 L Sodium 139 138.0 Chloride 106 109.0 H Glucose 87 Lactate 1.5 FiO2 21.0 Potassium 3.0 L Carbon Dioxide 27 Anion Gap 9 L BUN 3 L Creatinine 0.6 L Est GFR ( Amer) > 60 Est GFR (Non-Af Amer) > 60 POC Glucose (mg/dL) Random Glucose 86 Calcium 8.4 Phosphorus 2.2 L Total Bilirubin 1.1 AST 102 H D ALT 72 H Alkaline Phosphatase 51 Total Creatine Kinase 2819 H CK-MB (CK-2) 7.3 H CK-MB (CK-2) % 0.3 L Total Protein 6.2 Albumin 3.5 Globulin 2.7 Albumin/Globulin Ratio 1.3 Venous Blood Potassium 3.0 L 10/13/17 10/13/17 10/13/17 07:39 11:50 11:50 WBC 3.5 L D RBC 3.98 Hgb 13.4 L Hct 37.9 L MCV 95.2 MCH 33.7 MCHC 35.4 RDW 13.0 Plt Count 62 L MPV 11.3 H Gran % 66.4 Lymph % (Auto) 19.7 L [place] % (Auto) 12.7 H Eos % (Auto) 0.9 L Baso % (Auto) 0.3 Gran # 2.30 Lymph # (Auto) 0.7 L [place] # (Auto) 0.4 Eos # (Auto) 0.0 Baso # (Auto) 0.01 pO2 VBG pH VBG pCO2 VBG HCO3 VBG Total CO2 VBG O2 Sat (Calc) VBG Base Excess VBG Potassium Sodium 141 Chloride 107 Glucose Lactate FiO2 Potassium 3.4 L Carbon Dioxide 25 Anion Gap 12 BUN 3 L Creatinine 0.6 L Est GFR ( Amer) > 60 Est GFR (Non-Af Amer) > 60 POC Glucose (mg/dL) 82 Random Glucose 89 Calcium 8.5 Phosphorus Total Bilirubin AST ALT Alkaline Phosphatase Total Creatine Kinase CK-MB (CK-2) CK-MB (CK-2) % Total Protein Albumin Globulin Albumin/Globulin Ratio Venous Blood Potassium 10/13/17 10/13/17 12:12 17:03 WBC RBC Hgb Hct MCV MCH MCHC RDW Plt Count MPV Gran % Lymph % (Auto) [place] % (Auto) Eos % (Auto) Baso % (Auto) Gran # Lymph # (Auto) [place] # (Auto) Eos # (Auto) Baso # (Auto) pO2 VBG pH VBG pCO2 VBG HCO3 VBG Total CO2 VBG O2 Sat (Calc) VBG Base Excess VBG Potassium Sodium Chloride Glucose Lactate FiO2 Potassium Carbon Dioxide Anion Gap BUN Creatinine Est GFR ( Amer) Est GFR (Non-Af Amer) POC Glucose (mg/dL) 87 75 Random Glucose Calcium Phosphorus Total Bilirubin AST ALT Alkaline Phosphatase Total Creatine Kinase CK-MB (CK-2) CK-MB (CK-2) % Total Protein Albumin Globulin Albumin/Globulin Ratio Venous Blood Potassium Assessment & Plan (1) Seizure Assessment and Plan: Will start the patient on Trileptal in addition to Depakote and check levels in the AM. EEG will be done tomorrow. We should avoid atypical antipsychotics since they can decrease the seizure threshold. Benzodiazepines can be used if the patient has another seizure, but we will avoid using them in a scheduled manner. Benadryl can be tried for agitation PRN. Continue supportive care. Thank you. Status: Acute Priority: High
[2017-10-13] MEDS: DiphenhydrAMINE 50 mg/ml Inj IVP PRN (20:46)
[2017-10-14] MEDS: DiphenhydrAMINE 50 mg/ml Inj IVP PRN ×2 (03:31→21:20)
[2017-10-14] MEDS: Insulin Reg-LOW-Coverage SC SCH ×3 (07:37→16:32)
[2017-10-14 07:53] LABS: BASO # 0.01 K/mm3 (0.0-2.0); BASO % 0.2 % (0.0-3.0); EOS % 0.9 % (1.5-5.0); GRAN # 2.95 (1.4-6.5); HEMOGLOBIN 13.6 g/dL (14.0-18.0); LYMPH # 0.8 (1.2-3.4); LYMPH % 18.5 % (22.0-35.0); MEAN CORPUSCULAR HEMOGLOBIN 34.2 pg (25.0-35.0); MEAN CORPUSCULAR HGB CONC 35.6 g/dl (31.0-37.0); MEAN PLATELET VOLUME 11.2 fl (7.0-11.0); MONO # 0.5 (0.1-0.6); MONO % 11.4 % (1.0-6.0); RBC 3.98 10^6/uL (3.5-6.1); RED CELL DISTRIBUTION WIDTH 13.1 % (11.5-14.5); WHITE BLOOD COUNT 4.3 10^3/ul (4.5-11.0)
[2017-10-14 08:04] LABS: ALB/GLOB RATIO 1.4 (1.1-1.8); ALBUMIN 4.2 g/dL (3.0-4.8); ALT/SGPT 81 U/L (7-56); AST/SGOT 215 U/L (17-59); BILIRUBIN,DIRECT 0.6 mg/dL (0.0-0.4); BLOOD UREA NITROGEN 3 mg/dL (7-21); CALCIUM 8.9 mg/dL (8.4-10.5); GFR AFRICAN-AMERICAN > 60; GFR NON-AFRICAN AMERICAN > 60; HDL CHOLESTEROL 60 mg/dL (29-60)
[2017-10-14 08:10] LABS: CARBAMAZEPINE < 3 ug/mL (4.0-10.0)
[2017-10-14 08:12] LABS: VALPROIC ACID 40 ug/mL (50.0-100.0)
[2017-10-14 08:14] LABS: LDL CHOLESTEROL 78 mg/dL (0-129)
[2017-10-14 10:12] LABS: CK-MB 8.1 ng/mL (0.0-3.6)
[2017-10-14] MEDS: Potassium & Sodium Phosphate PO SCH ×3 (11:25→19:04)
[2017-10-14] MEDS ORDERED: Dextrose 50% SYRINGE Inj (50 ml) IV STA (11:26)
[2017-10-14] MEDS: Divalproex 250 mg DR (BID formulation) PO SCH (11:30)
--- NOTE | 2017-10-14 13:20 | CP.PCM.PN ---
Subjective - Date & Time of Evaluation Date of Evaluation: 10/14/17 Time of Evaluation: 13:17 - Subjective Subjective: Mr. Bernal was seen and examined at the bedside. He is awake, but very confused. He is unable to answer any questions, but has episode of hallucinations. He thinks somebody took his working tools. He is very restless in bed, combative, spits and tries to hit the staff, He urinates around his bed and points his urine towards the staff. Psychiatry came and evaluate the patient. She is familiar with the patient and resumed previous treatment that worked for the patient.He is on wrist restraint and 1:1 sitter for patient safety. He is able to talk calmly when family ( sisters) are around. 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 Objective - Vital Signs/Intake and Output Vital Signs (last 24 hours): Temp Pulse Resp BP Pulse Ox 97.8 F 99 H 20 152/65 H 93 L 10/14/17 06:00 10/14/17 11:25 10/14/17 06:00 10/14/17 11:25 10/14/17 00:01 Intake and Output: 10/14/17 10/14/17 06:59 18:59 Intake Total 600 Balance 600 - Medications Medications: Current Medications Amlodipine Besylate (Norvasc) 5 mg PO DAILY [facility] Last Admin: 10/14/17 11:25 Dose: 5 mg Diphenhydramine HCl (Benadryl) 50 mg IVP Q8H PRN PRN Reason: Agitation Last Admin: 10/14/17 03:31 Dose: 50 mg Divalproex Sodium (Depakote Dr (*Bid*)) 250 mg PO BID [facility] PRN Reason: Protocol Last Admin: 10/14/17 11:30 Dose: 250 mg Folic Acid (Folic Acid) 1 mg PO DAILY [facility] Last Admin: 10/14/17 11:29 Dose: 1 mg Heparin Sodium (Porcine) (Heparin) 5,000 units SC Q12 [facility] PRN Reason: Protocol Last Admin: 10/14/17 11:31 Dose: Not Given Insulin Human Regular (Humulin R Low) 0 units SC ACHS [facility] PRN Reason: Protocol Last Admin: 10/14/17 11:32 Dose: Not Given Lorazepam (Ativan) 1 mg PO Q6 PRN; Protocol PRN Reason: Agitation Nicotine (Nicoderm Cq) 1 patch TD DAILY [facility] Last Admin: 10/14/17 11:25 Dose: 1 patch Oxcarbazepine (Trileptal) 300 mg PO BID [facility] PRN Reason: Protocol Last Admin: 10/14/17 11:29 Dose: 300 mg Pantoprazole Sodium (Protonix Inj) 40 mg IVP DAILY [facility] Last Admin: 10/14/17 11:30 Dose: Not Given Potassium Phos/Sodium Phos (Neutra-Phos) 1 pkt PO TID [facility] Stop: 10/16/17 10:01 Last Admin: 10/14/17 11:25 Dose: 1 pkt Quetiapine Fumarate (Seroquel) 25 mg PO QAM [facility] PRN Reason: Protocol Quetiapine Fumarate (Seroquel) 25 mg PO 1300 [facility] PRN Reason: Protocol Quetiapine Fumarate (Seroquel) 50 mg PO HS [facility] PRN Reason: Protocol Thiamine HCl (Vitamin B1 Tab) 100 mg PO DAILY [facility] Last Admin: 10/14/17 11:28 Dose: 100 mg - Labs Labs: 10/14/17 07:40 10/14/17 07:40 - Constitutional Appears: No Acute Distress - Head Exam Head Exam: NORMAL INSPECTION - Neurological Exam Neurological Exam: Awake Neuro motor strength exam: Left Upper Extremity: 5, Right Upper Extremity: 5, Left Lower Extremity: 5, Right Lower Extremity: 5 Additional comments: He is confused, restless, agitated, unable to follow commands. He is able to move all extremities spontaneously. Assessment and Plan (1) Seizure Assessment & Plan: Case discussed with Dr. Hodge, continue all current medical regimen.Recommend using Benzodiazepines only for seizure and avoid using them in a scheduled manner. Pending EEG due to patient current physical and mental condition. Status: Acute
--- NOTE | 2017-10-14 15:58 | CP.PCM.PN ---
Subjective - Date & Time of Evaluation Date of Evaluation: 10/14/17 Time of Evaluation: 15:56 - Subjective Subjective: Patient seen and examined at bedside. Patient was noted to be thrombocytopenic. Heparin was discontinued. Objective - Vital Signs/Intake and Output Vital Signs (last 24 hours): Temp Pulse Resp BP Pulse Ox 98.7 F 102 H 20 152/93 H 98 10/14/17 12:00 10/14/17 12:00 10/14/17 12:00 10/14/17 12:00 10/14/17 12:00 Intake and Output: 10/14/17 10/14/17 06:59 18:59 Intake Total 600 Balance 600 - Medications Medications: Current Medications Amlodipine Besylate (Norvasc) 5 mg PO DAILY [facility] Last Admin: 10/14/17 11:25 Dose: 5 mg Diphenhydramine HCl (Benadryl) 50 mg IVP Q8H PRN PRN Reason: Agitation Last Admin: 10/14/17 03:31 Dose: 50 mg Divalproex Sodium (Depakote Dr(*Bid*)) 500 mg PO Q12 [facility] PRN Reason: Protocol Folic Acid (Folic Acid) 1 mg PO DAILY [facility] Last Admin: 10/14/17 11:29 Dose: 1 mg Insulin Human Regular (Humulin R Low) 0 units SC ACHS [facility] PRN Reason: Protocol Last Admin: 10/14/17 11:32 Dose: Not Given Lorazepam (Ativan) 1 mg PO Q6 PRN; Protocol PRN Reason: Agitation Nicotine (Nicoderm Cq) 1 patch TD DAILY [facility] Last Admin: 10/14/17 11:25 Dose: 1 patch Oxcarbazepine (Trileptal) 300 mg PO BID [facility] PRN Reason: Protocol Last Admin: 10/14/17 11:29 Dose: 300 mg Pantoprazole Sodium (Protonix Inj) 40 mg IVP DAILY [facility] Last Admin: 10/14/17 11:30 Dose: Not Given Potassium Phos/Sodium Phos (Neutra-Phos) 1 pkt PO TID [facility] Stop: 10/16/17 10:01 Last Admin: 10/14/17 11:25 Dose: 1 pkt Quetiapine Fumarate (Seroquel) 25 mg PO QAM [facility] PRN Reason: Protocol Quetiapine Fumarate (Seroquel) 25 mg PO 1300 [facility] PRN Reason: Protocol Last Admin: 10/14/17 14:26 Dose: 25 mg Quetiapine Fumarate (Seroquel) 50 mg PO HS [facility] PRN Reason: Protocol Thiamine HCl (Vitamin B1 Tab) 100 mg PO DAILY [facility] Last Admin: 10/14/17 11:28 Dose: 100 mg - Labs Labs: 10/14/17 07:40 10/14/17 07:40 - Constitutional Appears: Agitated - Head Exam Head Exam: ATRAUMATIC, NORMOCEPHALIC - Eye Exam Eye Exam: EOMI, Normal appearance Additional comments: patient was unable to be assessed by physical exam due to not cooperating - Skin Skin Exam: Dry, Intact, Normal Color, Warm Assessment and Plan - Assessment and Plan (Free Text) Assessment: 52 year old with substance abuse and seizures who is currently being treated for seizures. 1) Seizure disorder - per neurology 2) Agitation - Psychiatry following 3) Thrombocytopenia - Per hematology Patient will require constant observation, [facility] to be arranged to isiah Hawley. Appreciate follow up and acceptance of patient
--- NOTE | 2017-10-14 22:01 | CP.PCM.PN ---
Subjective - Date & Time of Evaluation Date of Evaluation: 10/14/17 Time of Evaluation: 21:56 - Subjective Subjective: S: Patient has been agitated. Wandering in the hospital lobby. Wants to leave the hospital. Threatened that he would leave the hospital in the middle of the night. Pulled out heparin lock, need heparin lock reinserted. Medical record was reviewed. Awaiting evaluation by psychiatry. Awaiting EEG. O: Last Vital Signs 3 Temp 98.7 F 10/14/17 12:00 Pulse 102 H 10/14/17 12:00 Resp 20 10/14/17 12:00 BP 152/93 H 10/14/17 12:00 Pulse Ox 98 10/14/17 12:00 Agitated , verbally abusive. Wandering in lobby. We had to go after him. He was given ativan 4 mg IV in front of the elevator. LUNGS: Normal breathing pattern. A:Agitation. Wandering. ETOH withdrawal. P:Geodon 20 mg IM was administered by me. Ativan 4 mg IV ordered. Benadryl 50 mg IV was given. 4 point leather restraint was ordered. Objective - Vital Signs/Intake and Output Vital Signs (last 24 hours): Temp Pulse Resp BP Pulse Ox 98.7 F 102 H 20 152/93 H 98 10/14/17 12:00 10/14/17 12:00 10/14/17 12:00 10/14/17 12:00 10/14/17 12:00 - Medications Medications: Current Medications Amlodipine Besylate (Norvasc) 5 mg PO DAILY [facility] Last Admin: 10/14/17 11:25 Dose: 5 mg Diphenhydramine HCl (Benadryl) 50 mg IVP Q8H PRN PRN Reason: Agitation Last Admin: 10/14/17 03:31 Dose: 50 mg Divalproex Sodium (Depakote Dr(*Bid*)) 500 mg PO Q12 [facility] PRN Reason: Protocol Folic Acid (Folic Acid) 1 mg PO DAILY [facility] Last Admin: 10/14/17 11:29 Dose: 1 mg Insulin Human Regular (Humulin R Low) 0 units SC ACHS [facility] PRN Reason: Protocol Last Admin: 10/14/17 16:32 Dose: Not Given Lorazepam (Ativan) 1 mg PO Q6 PRN; Protocol PRN Reason: Agitation Last Admin: 10/14/17 19:04 Dose: 1 mg Nicotine (Nicoderm Cq) 1 patch TD DAILY [facility] Last Admin: 10/14/17 11:25 Dose: 1 patch Oxcarbazepine (Trileptal) 300 mg PO BID [facility] PRN Reason: Protocol Last Admin: 10/14/17 19:03 Dose: 300 mg Pantoprazole Sodium (Protonix Inj) 40 mg IVP DAILY [facility] Last Admin: 10/14/17 11:30 Dose: Not Given Potassium Phos/Sodium Phos (Neutra-Phos) 1 pkt PO TID [facility] Stop: 10/16/17 10:01 Last Admin: 10/14/17 19:04 Dose: 1 pkt Quetiapine Fumarate (Seroquel) 25 mg PO QAM [facility] PRN Reason: Protocol Quetiapine Fumarate (Seroquel) 25 mg PO 1300 [facility] PRN Reason: Protocol Last Admin: 10/14/17 14:26 Dose: 25 mg Quetiapine Fumarate (Seroquel) 50 mg PO HS [facility] PRN Reason: Protocol Thiamine HCl (Vitamin B1 Tab) 100 mg PO DAILY [facility] Last Admin: 10/14/17 11:28 Dose: 100 mg - Labs Labs: 10/14/17 07:40 10/14/17 07:40
--- NOTE | 2017-10-14 22:47 | CON ---
DATE: HISTORY OF PRESENT ILLNESS: The patient is a single 52-year-old white male who has had a formal psychiatric history, though has been seen by psychiatrist during his multiple hospitalizations for seizure withdrawals and agitation, who was admitted medically status post seizure on 10/12/2017 and notably confused, agitated and combative on the medical floor. Psychiatry was called for consultation due to the patient's behavior. I reviewed the patient's records, including his prior hospitalization as well as prior psychiatric consultation. I also reviewed recent notes and met with patient in the unit this morning. Most of the information was obtained from these sources as the patient was broadly disoriented and psychotic this morning, though he was not agitated or threatening during the course of my questioning. Apparently, the patient has been admitted multiple times medically for postictal related symptoms . I had first became involved with the patient in 01/2013 after he suffered a seizure due to alcohol withdrawal. At that time, Dr. Jacobs saw him on 01/20, 01/21, and 01/23. Patient was discharged on Neurontin 600 mg b.i.d. and 1200 mg at bedtime as well as trazodone 50 mg at bedtime. He was supposed to follow up with a rehab and it is unclear if he did. The patient was also treated with Librium at that time. Dr. Jacobs's note indicates that the patient does have a history with alcohol withdrawal related seizures as well as issues with nursing while he is hospitalized as well as noncompliance with his AEDs. Psychiatry became involved with the patient in 01/2014 after he suffered a seizure, that led to a TBI as well as trach and PEG in place. He was seen by Dr. Cisse on 02/12, 02/15, 02/22, 02/26 and 03/16. During the course of this hospitalization, the patient was given Seroquel 50 mg p.o. b.i.d. as well as Depakote 250 mg p.o. b.i.d., and Ativan 2 mg q.4 p.r.n. for agitation; additional symptoms similar to current presentation and as he was agitated, combative, completely disoriented, unpredictable, restless and hallucinating. These symptoms did improve with medications and he was ultimately discharged on the above listed medications. As noted above, the patient presented to the ER after vomiting and suffering a seizure afterwards. As per the patient's sisters, patient has not been drinking and they believe that he has been taking his AEDs regularly. Dr. Richmond's note indicated that the sisters provide collateral and his last seizure episode was in May because he missed a dose of his anti-seizure medication. It was still unclear the cause of his seizures and that has been worked up. Nonetheless, the patient is acutely delirious and has been extremely difficult on the unit. Nursing notes indicates that the patient has been trying to climb or slide out of bed. He became restless. He required restrain. He currently underwent one. He pulled off his IV and he has been using IV pull as a weapon, so IVs cannot be started on him. The patient has also been exposing himself and kicking at the nursing staff and trying to hips talk. Jostin warner was also called yesterday afternoon due to patient's uncontrolled behavior. Please note that this behavior is very consistent with his presentation during his hospitalization from January to March 2014. Records indicate that the patient was initially on Seroquel, but this was discontinued possibly because of secondary generation anti-psychotic propensity to lower seizure threshold. He is however, continued on Depakote 250 mg b.i.d., Ativan 2 mg q.1 hour p.r.n and Trileptal 300 mg b.i.d., which can also help with impulse control. I met with the patient at bedside and previous nursing notes, he is currently psychotic. He is completely disoriented to location, circumstances as well as month. The patient is; however, able to provide me the correct year. We did not want this information reviewed with him on multiple times. In course of our discussion, he was not able to spontaneously provide this information when I asked about him a few minutes later. He is actively hallucinating. He is talking to an individual that is not next to him and he tells me matter of fact that "this vitaliy is unconscious, he is like a hamburger." The patient appears acutely delusional, but not acutely paranoid. He is extremely confused and unpredictable because of that. Remaining in restraint, he is less exposing himself unknowingly due to this disorganization during my visit. Regarding his history, he is able to tell me that he was born a male. He has no children because of cancer; however, he is not able to tell me anything about his living situation or current alcohol use. His insight and judgement are poor and he does not have capacity at this time in order for me to contact his family members . Regardless, it does appear that the primary thing is to gather a lot of collateral from his sisters when he first presented to the ER. PSYCHIATRIC HISTORY: As noted, the patient has been seen by Psychiatry during his admission in a consultation capacity during his admission from 01/19/2013 to 01/24/[address] Jacobs, and he was discharged on psychiatric medications of Neurontin 600 mg b.i.d., 1200 mg at bedtime and trazodone 50 mg at bedtime. The patient was also seen by a Psychiatric team in a consultation capacity during his hospitalization at [facility] from 01/25/2014 to 03/30/2014. The patient was discharged on Depakote 250 mg b.i.d., Seroquel 50 mg b.i.d., and Ativan 2 mg q.4 hours p.r.n. for agitation. The patient generally has been very resistant to Psychiatric services, though Dr. Richmond's notes indicated that his sister did provide information that he has been struggling with mood disorder and recall ever since his 2013 hospitalization. The patient also had psychiatric admission in 01/2013; however, he was released. SOCIAL HISTORY: It was noted that most of the social history was obtained from a prior records as the patient is not just organized to provide reliable information. As per the social history, he was born in [place], [place]. He has no children and he has never due to being diagnosed with testicular cancer when he was in high school. 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 The patient's mother is an alcoholic and both parents have . His brother also secondary to alcoholism. Question, is he drinks very heavily; however, according to the nursing in this hospitalization, he has not had alcohol for a while. PHYSICAL EXAMINATION: VITAL SIGNS: At 6 a.m. this morning, temperature 97.8, pulse 75, blood pressure 158/80, respirations 20. LABORATORY DATA: Reviewed by this provider, significantly Depakote level was 40 and Tegretol level was less than 3. Platelet count is 46 on the low level. White blood cell count is 4.3, hemoglobin and hematocrit are minimally decreased at 13.6 and 38.2. There was some electrolyte imbalance, please refer to the medical notes for full summary of note. Total CK is 19,048, AST 215, ALT is 81 consistent with continued alcohol use. RELEVANT PSYCHIATRIC MEDICATIONS: Include Depakote 250 mg b.i.d., Trileptal 300 mg p.o. b.i.d. IMPRESSION: Delirium, status post seizure with alcohol withdrawal seizure, rule out alcohol withdrawal delirium. The patient is actively psychotic and quantity is unpredictable. RECOMMENDATIONS: 1. Patient should continue to be on a one-to-one as he is highly unpredictable. 2. I will continue Depakote 250 mg p.o. b.i.d. as this was beneficial for him sparing his 2013 admission. We will titrate as necessary for the patient's behavior. 3. Patient would be restarted on Seroquel 25 mg a.m., 25 mg p.m. and 50 mg at bedtime for hallucination with organization and impulse control as well as mood control. It is treated with secondary generation antipsychotics. It can lower seizure threshold, but review of research indicated that quetiapine can be associated with it's propensity to increase seizure threshold and might actually be protective in this manner as well as beneficial for his current psychotic features. 4. Lastly, I am concerned that the patient has been secretly drinking alcohol. He does have a long history of alcohol use and I do not think transaminitis are a keeper other than on board as a p.r.n. At this time, I am aware of the patient becoming disinhibited on this medication and that should use this only as necessary for withdrawal symptoms. Hopefully, Seroquel will be efficient enough to prevent need for p.r.n. medications regarding agitation. However, Ativan maybe needed for alcohol withdrawal if it is determined that the patient has been drinking alcohol without his family's knowledge. Psychiatry will continue to follow up with the patient on a daily basis. Specifically, the patient will be seen again on 10/15/2017. Erik Aviles MD [facility] # [id number]
[2017-10-15] MEDS: Divalproex 500 mg DR(BID formulation) PO SCH ×3 (00:01→21:11)
[2017-10-15] MEDS: Insulin Reg-LOW-Coverage SC SCH ×5 (00:02→22:05)
[2017-10-15] MEDS: Sodium Chloride 0.9% 1,000 ML IV SCH ×4 (07:36→21:12)
[2017-10-15 08:25] LABS: BASO # 0.01 K/mm3 (0.0-2.0); BASO % 0.3 % (0.0-3.0); EOS # 0.1 (0.0-0.7); EOS % 4.1 % (1.5-5.0); GRAN # 1.74 (1.4-6.5); GRAN % 54.7 % (50.0-68.0); HEMOGLOBIN 14.1 g/dL (14.0-18.0); LYMPH % 30.2 % (22.0-35.0); MEAN CELL VOLUME 96.4 fl (80.0-105.0); MEAN CORPUSCULAR HEMOGLOBIN 34.1 pg (25.0-35.0); MEAN CORPUSCULAR HGB CONC 35.3 g/dl (31.0-37.0); MEAN PLATELET VOLUME 12.2 fl (7.0-11.0); MONO # 0.3 (0.1-0.6); MONO % 10.7 % (1.0-6.0); RBC 4.14 10^6/uL (3.5-6.1); RED CELL DISTRIBUTION WIDTH 13.1 % (11.5-14.5); WHITE BLOOD COUNT 3.2 10^3/ul (4.5-11.0)
[2017-10-15 08:37] LABS: ALB/GLOB RATIO 1.4 (1.1-1.8); ALBUMIN 4.1 g/dL (3.0-4.8); ALT/SGPT 108 U/L (7-56); AST/SGOT 386 U/L (17-59); BLOOD UREA NITROGEN 6 mg/dL (7-21); CALCIUM 8.7 mg/dL (8.4-10.5); GFR AFRICAN-AMERICAN > 60; GFR NON-AFRICAN AMERICAN > 60
[2017-10-15] MEDS ORDERED: Potassium Chloride 20 mEq ER Tab PO ONE (08:51)
[2017-10-15 09:30] LABS: CK-MB 7.2 ng/mL (0.0-3.6)
[2017-10-15] MEDS: DiphenhydrAMINE 50 mg/ml Inj IVP PRN (13:22)
--- NOTE | 2017-10-15 15:30 | PN ---
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 The patient has metastatic testicular cancer, status post surgery, chemo and radiation, who was witnessed to have generalized clonic tonic seizure what brought him to the medical site. Psychiatric consult was called because of agitation as well as medication management. The patient was seen and examined, discussed with attending, Dr. Aviles, psychiatrist, who evaluated the patient yesterday. Notes reviewed. Seroquel was started at 25 mg twice a day and 50 mg at the bedtime. The patient also was started on Depakote. The patient is currently on one-to-one. This medical writer tried to evaluate the patient. The patient has episodes of being irritable and paranoid; for example, the patient refused to talk in front of the medical student saying I do not want to talk in front of a bunch of people despite the fact that it was only this medical writer and medical student with him. The patient also was annoyed with the questions about his past history, but there is no agitation, no aggression. As per one-to-one sitter, the patient is much calmer today. Medications reviewed. The patient is on Depakote 500 mg twice a day, folic acid, Humulin, Ativan, and the most recent was today at 09:22; Nicoderm, oxcarbazepine, Protonix, Seroquel yesterday was on hold because the patient was sleepy, sodium chloride and thiamine. Collaterals were obtained from the patient's sisters. The patient was on Seroquel 200 mg daily and Depakote extended release 500 mg twice a day. This information was obtained by Dr. Aviles yesterday. MENTAL STATUS EXAM: The patient is oriented only in self and in place. The patient thinks that now is 1997 in May. He is not quite aware of what is the date. He does not remember the circumstances of his admission to the medical site. Mood described as "I feel fine." Affect was irritable and annoyed. Thought process seems to be concrete. Thought content: The patient is disorganized and mildly paranoid. The patient denied thoughts of harming himself or others, denied intents or plan. Insight and judgment seem to be impaired. Impulses are unpredictable. IMPRESSION: Most likely the patient has delirium, which is related to the general medical condition and seizures and rule out alcohol withdrawal syndrome. The pulse was 96 yesterday and the patient has elevated blood pressure. PLAN: This medical writer increased the dose of Seroquel to 50 mg twice a day and at the nighttime for delirium and psychotic symptoms. Depakote was resumed by medical team, Neurology team. The patient is on one-to-one. Please continue that. Multivitamins, thiamine and folic acid would be continued. P.r.n. medications were in the computer. We will follow up and advise accordingly. Thank you very much for letting me participate in the care of your patient. Myah Philippe MD
[2017-10-15 17:05] LABS: HEPATITIS B SURFACE AG Negative (NEGATIVE)
[2017-10-15 17:10] LABS: HEPATITIS A IGM NEGATIVE (NEGATIVE); HEPATITIS B CORE AB NEGATIVE (NEGATIVE)
[2017-10-15 17:22] LABS: HEPATITIS C ANTIBODY NEGATIVE (NEGATIVE)
--- NOTE | 2017-10-15 18:59 | CP.PCM.PN ---
<Lane Mora - Last Filed: 10/16/17 08:55> Subjective - Date & Time of Evaluation Date of Evaluation: 10/15/17 Time of Evaluation: 18:59 - Subjective Subjective: Lane Mora DO, PGY-1: Hospitalist Service Patient seen and examined at least four different times during the day, mostly for assessing need of restraints. Discussed patient's case with the sister at length. Patient is hallucinating, seeing thinks that are not there, exhibiting fluctuating level of cognition. He does no know the date, time, year or month. He does knoiw that the President of the [employer] is Cheng Bellamy. He states "it is 1997," instead of 2018. States he is in [place] [employer] instead of [facility]. Objective - Vital Signs/Intake and Output Vital Signs (last 24 hours): Temp Pulse Resp BP Pulse Ox 98.4 F 89 20 141/86 98 10/15/17 17:30 10/15/17 17:30 10/15/17 17:30 10/15/17 11:41 10/14/17 12:00 Intake and Output: 10/15/17 10/15/17 06:59 18:59 Intake Total 0 Balance 0 - Medications Medications: Current Medications Amlodipine Besylate (Norvasc) 5 mg PO DAILY [facility] Last Admin: 10/15/17 09:23 Dose: 5 mg Diphenhydramine HCl (Benadryl) 50 mg IVP Q8H PRN PRN Reason: Agitation Last Admin: 10/15/17 13:22 Dose: 50 mg Divalproex Sodium (Depakote Dr(*Bid*)) 500 mg PO Q12 [facility] PRN Reason: Protocol Last Admin: 10/15/17 09:23 Dose: 500 mg Folic Acid (Folic Acid) 1 mg PO DAILY [facility] Last Admin: 10/15/17 09:23 Dose: 1 mg Sodium Chloride (Sodium Chloride 0.9%) 1,000 mls @ 200 mls/hr IV .Q5H ROLAND Last Admin: 10/15/17 17:32 Dose: 200 mls/hr Insulin Human Regular (Humulin R Low) 0 units SC ACHS [facility] PRN Reason: Protocol Last Admin: 10/15/17 17:31 Dose: Not Given Lorazepam (Ativan) 1 mg IVP Q6H PRN; Protocol PRN Reason: Agitation Nicotine (Nicoderm Cq) 1 patch TD DAILY [facility] Last Admin: 10/15/17 09:27 Dose: 1 patch Oxcarbazepine (Trileptal) 300 mg PO BID [facility] PRN Reason: Protocol Last Admin: 10/15/17 17:34 Dose: 300 mg Pantoprazole Sodium (Protonix Ec Tab) 40 mg PO ACB R[facility] Quetiapine Fumarate (Seroquel) 50 mg PO HS [facility] PRN Reason: Protocol Last Admin: 10/15/17 00:03 Dose: Not Given Quetiapine Fumarate (Seroquel) 50 mg PO 1300 [facility]AND PRN Reason: Protocol Last Admin: 10/15/17 13:23 Dose: 50 mg Quetiapine Fumarate (Seroquel) 50 mg PO QAM [facility] PRN Reason: Protocol Thiamine HCl (Vitamin B1 Tab) 100 mg PO DAILY [facility] Last Admin: 10/15/17 09:22 Dose: 100 mg - Labs Labs: 10/15/17 08:00 10/15/17 08:00 - Constitutional Appears: Combative, Agitated, Confused - Head Exam Head Exam: ATRAUMATIC - Eye Exam Eye Exam: EOMI, Normal appearance - ENT Exam ENT Exam: Mucous Membranes Moist - Respiratory Exam Respiratory Exam: Clear to Ausculation Bilateral, NORMAL BREATHING PATTERN - Cardiovascular Exam Cardiovascular Exam: RRR, +S1, +S2 - GI/Abdominal Exam GI & Abdominal Exam: Soft, Normal Bowel Sounds - Extremities Exam Extremities Exam: Normal Inspection - Neurological Exam Neurological Exam: Altered. absent: Oriented x3 - Psychiatric Exam Psychiatric exam: Agitated - Skin Additional comments: scabs here and there in arms and legs Assessment and Plan - Assessment and Plan (Free Text) Assessment: 52 year old male with a past medical history of TBI, alcohol abuse, seizures, disinhibition, who presented to [facility] for seizures via EMS and has been confused, agitated, and delirious. Psychiatry and neurology are on board. He has rhabdomyolysis secondary to his seizure and is being given IV fluids. He is on different level of restraints depending on how violent, disruptive, or combative he gets. He is awaiting EEG and MRI, unless otherwise indicated. Plan: 1) Epilepsy - Depakote 500 mg q12h - Trileptal 300 mg PO BID - Ativan 1 mg q6h for seizure - Neurology recommendations appreciated 2) TBI with concurrent affective disorder and agitaiton - Seroquel 50 mg TID - Appreciate psychiatry recommendations - 3) Malnutrition and history of alcoholism on AED - Folic acid, thiamine 4) Hypertension - Amlodipine 5 mg 5) Rhabdomyolysis secondary to seizures - CPK treniding up from 298 on admission to 34, 291 - NS at 200 ml/hr 6) Elevated LFTs - Will continue to trend and avoid hepatotoxins <Titi Iglesias - Last Filed: 10/16/17 09:29> Objective - Vital Signs/Intake and Output Vital Signs (last 24 hours): Temp Pulse Resp BP Pulse Ox 98.3 F 95 H 18 169/96 H 95 10/16/17 06:00 10/16/17 06:00 10/16/17 06:00 10/16/17 06:00 10/16/17 06:00 Intake and Output: 10/16/17 10/16/17 06:59 18:59 Intake Total 1080 2400 Output Total 4400 Balance -3320 2400 - Medications Medications: Current Medications Amlodipine Besylate (Norvasc) 5 mg PO DAILY [facility] Last Admin: 10/15/17 09:23 Dose: 5 mg Diphenhydramine HCl (Benadryl) 50 mg IVP Q8H PRN PRN Reason: Agitation Last Admin: 10/16/17 06:02 Dose: 50 mg Divalproex Sodium (Depakote Dr(*Bid*)) 500 mg PO Q12 [facility] PRN Reason: Protocol Last Admin: 10/15/17 21:11 Dose: 500 mg Folic Acid (Folic Acid) 1 mg PO DAILY [facility] Last Admin: 10/15/17 09:23 Dose: 1 mg Sodium Chloride (Sodium Chloride 0.9%) 1,000 mls @ 200 mls/hr IV .Q5H [facility] Last Admin: 10/16/17 07:59 Dose: 200 mls/hr Insulin Human Regular (Humulin R Low) 0 units SC ACHS [facility] PRN Reason: Protocol Last Admin: 10/16/17 07:56 Dose: Not Given Lorazepam (Ativan) 1 mg IVP Q6H PRN; Protocol PRN Reason: Agitation Last Admin: 10/16/17 06:24 Dose: 1 mg Lorazepam (Ativan) 2 mg PO Q6H [facility] PRN Reason: Protocol Nicotine (Nicoderm Cq) 1 patch TD DAILY [facility] Last Admin: 10/16/17 06:13 Dose: 1 patch Oxcarbazepine (Trileptal) 300 mg PO BID [facility] PRN Reason: Protocol Last Admin: 10/15/17 17:34 Dose: 300 mg Pantoprazole Sodium (Protonix Ec Tab) 40 mg PO ACB [facility] Last Admin: 10/16/17 07:58 Dose: 40 mg Quetiapine Fumarate (Seroquel) 50 mg PO HS [facility] PRN Reason: Protocol Last Admin: 10/15/17 21:11 Dose: 50 mg Quetiapine Fumarate (Seroquel) 50 mg PO 1300 R[facility]AND PRN Reason: Protocol Last Admin: 10/15/17 13:23 Dose: 50 mg Quetiapine Fumarate (Seroquel) 50 mg PO QAM [facility] PRN Reason: Protocol Thiamine HCl (Vitamin B1 Tab) 100 mg PO DAILY [facility] Last Admin: 10/15/17 09:22 Dose: 100 mg - Labs Labs: 10/16/17 09:00 10/16/17 09:00 Attending/Attestation - Attestation I have personally seen and examined this patient.: Yes I have fully participated in the care of the patient.: Yes I have reviewed all pertinent clinical information, including history, physical exam and plan: Yes Notes (Text): 10/15/17 52 year old male with past medical history of TBI, alcohol abuse, seizure disorder and hypertension who presented with altered mental status and seizures. He was found to have rhabdomyolysis, elevated LFTs and delirium. He is being followed by neurology and psychiatry. EEG is pending. He is on depakote and trileptal. He is on ativan prn. Continue with IVF. Hepatitis panel is ordered. Will continue to monitor CPK and LFTs. He also has thrombocytopenia. Hematology evaluation was requested. He was counselled on alcohol abstinence. Continue with multivitamin, folic acid and thiamine. He is currently on 1:1. Continue with restraints as needed. Will follow up with psychiatry recommendations. Titi Iglesias MD Hospitalist.
[2017-10-16] MEDS: Sodium Chloride 0.9% 1,000 ML IV SCH ×4 (02:18→21:21)
[2017-10-16] MEDS: DiphenhydrAMINE 50 mg/ml Inj IVP PRN (06:02)
--- NOTE | 2017-10-16 07:22 | CP.PCM.PN ---
<Yamileth Dias - Last Filed: 10/16/17 07:24> Subjective - Date & Time of Evaluation Date of Evaluation: 10/16/17 Time of Evaluation: 07:18 - Subjective Subjective: PGY-[address] Iglesias Pt is AAOx2 for person and place. He is calling out for an invisible person Abdoul/ [place]. T 99.6. HR 86. 161/98 AAOx2 f[address] person and [address] HEENT no icterus, atraumatic Car S1 S2 regular Pulm CTA b/l Abd soft, NTND. no suprapubic pain Ext UE on 2 pt soft restraint, no skin rash. skin intact, pulse palpable all 4 ext Confusion due to ETOH withdrawal vs delirium from underlying Rhabdomyolsis - Pt is able to be redirected briefly, but need constant reminder - Maintain 1:1 - Continue current medical treatment. - continue 2 pt soft restraint - Next re-assess at 11:AM Objective - Vital Signs/Intake and Output Vital Signs (last 24 hours): Temp Pulse Resp BP Pulse Ox 99.6 F 86 18 161/98 H 96 10/16/17 00:01 10/16/17 02:00 10/16/17 00:01 10/16/17 00:01 10/16/17 00:01 Intake and Output: 10/16/17 10/16/17 06:59 18:59 Intake Total 1080 Output Total 4400 Balance -3320 - Medications Medications: Current Medications Amlodipine Besylate (Norvasc) 5 mg PO DAILY [facility] Last Admin: 10/15/17 09:23 Dose: 5 mg Diphenhydramine HCl (Benadryl) 50 mg IVP Q8H PRN PRN Reason: Agitation Last Admin: 10/16/17 06:02 Dose: 50 mg Divalproex Sodium (Depakote Dr(*Bid*)) 500 mg PO Q12 [facility] PRN Reason: Protocol Last Admin: 10/15/17 21:11 Dose: 500 mg Folic Acid (Folic Acid) 1 mg PO DAILY [facility] Last Admin: 10/15/17 09:23 Dose: 1 mg Sodium Chloride (Sodium Chloride 0.9%) 1,000 mls @ 200 mls/hr IV .Q5H [facility] Last Admin: 10/16/17 02:18 Dose: 200 mls/hr Insulin Human Regular (Humulin R Low) 0 units SC ACHS [facility] PRN Reason: Protocol Last Admin: 10/15/17 22:05 Dose: Not Given Lorazepam (Ativan) 1 mg IVP Q6H PRN; Protocol PRN Reason: Agitation Last Admin: 10/16/17 06:24 Dose: 1 mg Nicotine (Nicoderm Cq) 1 patch TD DAILY [facility] Last Admin: 10/16/17 06:13 Dose: 1 patch Oxcarbazepine (Trileptal) 300 mg PO BID [facility] PRN Reason: Protocol Last Admin: 10/15/17 17:34 Dose: 300 mg Pantoprazole Sodium (Protonix Ec Tab) 40 mg PO ACB [facility] Quetiapine Fumarate (Seroquel) 50 mg PO HS [facility] PRN Reason: Protocol Last Admin: 10/15/17 21:11 Dose: 50 mg Quetiapine Fumarate (Seroquel) 50 mg PO 1300 [facility] PRN Reason: Protocol Last Admin: 10/15/17 13:23 Dose: 50 mg Quetiapine Fumarate (Seroquel) 50 mg PO QAM [facility] PRN Reason: Protocol Thiamine HCl (Vitamin B1 Tab) 100 mg PO DAILY [facility] Last Admin: 10/15/17 09:22 Dose: 100 mg - Labs Labs: 10/15/17 08:00 10/15/17 08:00 <Titi Iglesias - Last Filed: 10/16/17 09:01> Objective - Vital Signs/Intake and Output Vital Signs (last 24 hours): Temp Pulse Resp BP Pulse Ox 98.3 F 95 H 18 169/96 H 95 10/16/17 06:00 10/16/17 06:00 10/16/17 06:00 10/16/17 06:00 10/16/17 06:00 Intake and Output: 10/16/17 10/16/17 06:59 18:59 Intake Total 1080 2400 Output Total 4400 Balance -3320 2400 - Medications Medications: Current Medications Amlodipine Besylate (Norvasc) 5 mg PO DAILY [facility] Last Admin: 10/15/17 09:23 Dose: 5 mg Diphenhydramine HCl (Benadryl) 50 mg IVP Q8H PRN PRN Reason: Agitation Last Admin: 10/16/17 06:02 Dose: 50 mg Divalproex Sodium (Depakote Dr(*Bid*)) 500 mg PO Q12 [facility] PRN Reason: Protocol Last Admin: 10/15/17 21:11 Dose: 500 mg Folic Acid (Folic Acid) 1 mg PO DAILY [facility] Last Admin: 10/15/17 09:23 Dose: 1 mg Sodium Chloride (Sodium Chloride 0.9%) 1,000 mls @ 200 mls/hr IV .Q5H [facility] Last Admin: 10/16/17 07:59 Dose: 200 mls/hr Insulin Human Regular (Humulin R Low) 0 units SC ACHS [facility] PRN Reason: Protocol Last Admin: 10/16/17 07:56 Dose: Not Given Lorazepam (Ativan) 1 mg IVP Q6H PRN; Protocol PRN Reason: Agitation Last Admin: 10/16/17 06:24 Dose: 1 mg Nicotine (Nicoderm Cq) 1 patch TD DAILY [facility] Last Admin: 10/16/17 06:13 Dose: 1 patch Oxcarbazepine (Trileptal) 300 mg PO BID [facility] PRN Reason: Protocol Last Admin: 10/15/17 17:34 Dose: 300 mg Pantoprazole Sodium (Protonix Ec Tab) 40 mg PO ACB [facility] Last Admin: 10/16/17 07:58 Dose: 40 mg Quetiapine Fumarate (Seroquel) 50 mg PO HS [facility] PRN Reason: Protocol Last Admin: 10/15/17 21:11 Dose: 50 mg Quetiapine Fumarate (Seroquel) 50 mg PO 1300 [facility] PRN Reason: Protocol Last Admin: 10/15/17 13:23 Dose: 50 mg Quetiapine Fumarate (Seroquel) 50 mg PO QAM [facility] PRN Reason: Protocol Thiamine HCl (Vitamin B1 Tab) 100 mg PO DAILY [facility] Last Admin: 10/15/17 09:22 Dose: 100 mg - Labs Labs: 10/15/17 08:00 10/15/17 08:00 Attending/Attestation - Attestation I have reviewed all pertinent clinical information, including history, physical exam and plan: Yes
[2017-10-16] MEDS ORDERED: Pantoprazole 40 mg EC Tab PO SCH (07:30)
[2017-10-16] MEDS: Insulin Reg-LOW-Coverage SC SCH ×4 (07:56→21:18)
[2017-10-16 09:06] LABS: HEMOGLOBIN 13.7 g/dL (14.0-18.0); MEAN CORPUSCULAR HEMOGLOBIN 34.2 pg (25.0-35.0); MEAN CORPUSCULAR HGB CONC 35.6 g/dl (31.0-37.0); MEAN PLATELET VOLUME 11.9 fl (7.0-11.0); RBC 4.01 10^6/uL (3.5-6.1); WHITE BLOOD COUNT 3.8 10^3/ul (4.5-11.0)
[2017-10-16 09:20] LABS: BLOOD UREA NITROGEN 2 mg/dL (7-21); GFR AFRICAN-AMERICAN > 60; GFR NON-AFRICAN AMERICAN > 60
[2017-10-16 09:21] LABS: ALB/GLOB RATIO 1.4 (1.1-1.8); ALBUMIN 4.1 g/dL (3.0-4.8); ALT/SGPT 137 U/L (7-56); AST/SGOT 600 U/L (17-59); CALCIUM 8.9 mg/dL (8.4-10.5)
--- NOTE | 2017-10-16 09:56 | CP.PCM.CON ---
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 Heme-onc was consulted for thrombocytopenia and concern for HIT. Today, patient remains restrained, but is not overtly aggressive or agitated. Overnight, was agitated, needing 4 point restraints, downgraded to 2 point, and several PRN medications to calm maranda. Remains a poor historian, unable to account for any prior hospitalizations between this admission and last at [facility] ( Jul 2016). Denies recent drinking. Oriented to self and place, seems poorly oriented to time (knows year but thinks last visit here was weeks ago, even when reminded it was in 2017). Denies chest pain, shortness of breath, or emesis. All other ROS negative as per patient, although he is questionable historian. Of note, concern for platelets that were 119 on admission, but have downtrended to 41 today. Also of note, patient has been leukopenic since admission (WBCs 10.2 on admit, then 2.6, 3-4's since). Mild anemia that has since resolved. Patient is on 2 antiepileptic agents, which are known as a class to cause thrombocytopenia, however given his hx of severe seizures and traumatic ICH, essential he remains on them. Review of Systems - Review of Systems All systems: reviewed and no additional remarkable complaints except (as per HPI ) Past Patient History - Infectious Disease Hx of Infectious Diseases: None - Tetanus Immunizations Tetanus Immunization: Unknown - Past Social History Smoking Status: Heavy Smoker > 10 Cigarettes Daily - CARDIAC Hx Hypertension: Yes - PULMONARY Hx Respiratory Disorders: Yes Other/Comment: recently lung and stomach nodules found - NEUROLOGICAL Hx Neurological Disorder: Yes (tramatic brain injury,syncope) Hx Seizures: Yes - HEENT Hx HEENT Problems: Yes (uses eyeglasses) - HEMATOLOGICAL/ONCOLOGICAL Hx Cancer: Yes (testicular; chemo/radiation) - INTEGUMENTARY Hx Dermatological Problems: Yes Other/Comment: old and new kaiden to back of head, scrapes ad abrasions to arms and legs - MUSCULOSKELETAL/RHEUMATOLOGICAL Hx Musculoskeletal Disorders: Yes Hx Falls: Yes Hx Fractures: Yes (left wrist, shoulder) Other/Comment: TBI 2/ fall 01/25/2014 - GASTROINTESTINAL Hx Gastroesophageal Reflux: Yes - GENITOURINARY/GYNECOLOGICAL Hx Prostate Cancer: Yes (ONE TESTICLE REMOVED) - PSYCHIATRIC Hx Psychophysiologic Disorder: Yes (etoh and smoker) Hx Bipolar Disorder: Yes Hx Depression: Yes Hx Substance Use: No - SURGICAL HISTORY Hx Surgeries: Yes Hx Musculoskeletal Surgery: Yes (cancerous lymph node found on spine) - ANESTHESIA Hx Anesthesia Reactions: No Hx Malignant Hyperthermia: No Meds Allergies/Adverse Reactions: Allergies Allergy/AdvReac Type Severity Reaction Status Date / Time No Known Allergies Allergy Verified 10/12/17 20:25 - Medications Medications: Current Medications Amlodipine Besylate (Norvasc) 5 mg PO DAILY [facility] Last Admin: 10/15/17 09:23 Dose: 5 mg Diphenhydramine HCl (Benadryl) 50 mg IVP Q8H PRN PRN Reason: Agitation Last Admin: 10/16/17 06:02 Dose: 50 mg Divalproex Sodium (Depakote Dr(*Bid*)) 500 mg PO Q12 [facility] PRN Reason: Protocol Last Admin: 10/15/17 21:11 Dose: 500 mg Folic Acid (Folic Acid) 1 mg PO DAILY [facility] Last Admin: 10/15/17 09:23 Dose: 1 mg Sodium Chloride (Sodium Chloride 0.9%) 1,000 mls @ 200 mls/hr IV .Q5H [facility] Last Admin: 10/16/17 07:59 Dose: 200 mls/hr Insulin Human Regular (Humulin R Low) 0 units SC ACHS [facility] PRN Reason: Protocol Last Admin: 10/16/17 07:56 Dose: Not Given Lorazepam (Ativan) 1 mg IVP Q6H PRN; Protocol PRN Reason: Agitation Last Admin: 10/16/17 06:24 Dose: 1 mg Lorazepam (Ativan) 2 mg PO Q6H [facility] PRN Reason: Protocol Nicotine (Nicoderm Cq) 1 patch TD DAILY [facility] Last Admin: 10/16/17 06:13 Dose: 1 patch Oxcarbazepine (Trileptal) 300 mg PO BID [facility] PRN Reason: Protocol Last Admin: 10/15/17 17:34 Dose: 300 mg Pantoprazole Sodium (Protonix Ec Tab) 40 mg PO ACB [facility] Last Admin: 10/16/17 07:58 Dose: 40 mg Quetiapine Fumarate (Seroquel) 50 mg PO HS [facility] PRN Reason: Protocol Last Admin: 10/15/17 21:11 Dose: 50 mg Quetiapine Fumarate (Seroquel) 50 mg PO 1300 [facility] PRN Reason: Protocol Last Admin: 10/15/17 13:23 Dose: 50 mg Quetiapine Fumarate (Seroquel) 50 mg PO QAM [facility] PRN Reason: Protocol Thiamine HCl (Vitamin B1 Tab) 100 mg PO DAILY [facility] Last Admin: 10/15/17 09:22 Dose: 100 mg Physical Exam - Constitutional Appears: Non-toxic, No Acute Distress, Unkempt - Head Exam Head Exam: ATRAUMATIC, NORMAL INSPECTION, NORMOCEPHALIC - Eye Exam Eye Exam: EOMI, Normal appearance. absent: Conjunctival injection, Scleral icterus Pupil Exam: absent: Irregular, Unequal - ENT Exam ENT Exam: Mucous Membranes Moist - Neck Exam Neck exam: Positive for: Full Rom, Normal Inspection - Respiratory Exam Respiratory Exam: Decreased Breath Sounds (mildly decreased breath sounds in all breaux, otherwise CTAB), Clear to Auscultation Bilateral, NORMAL BREATHING PATTERN. absent: Accessory Muscle Use, Chest Wall Tenderness, Rales, Rhonchi, Wheezes - Cardiovascular Exam Cardiovascular Exam: REGULAR RHYTHM, RRR, +S1, +S2. absent: Bradycardia, Tachycardia, Irregular Rhythm, JVD (negative JVD, faintly positive hepatojugular reflex (very mild/small pulsations at proximaly section of right jugular vein when palpatory pressure placed on margin of liver)), +S4 - GI/Abdominal Exam GI & Abdominal Exam: Normal Bowel Sounds, Soft. absent: Distended, Firm, Rigid , Tenderness - Extremities Exam Extremities exam: Positive for: normal inspection. Negative for: calf tenderness, pedal edema, tenderness Additional comments: scattered echymosis and two small scabs along anterior portion of bilateral LE in various states of healing - Neurological Exam Additional comments: awake and alert, oriented to self and location, questionable orientation to time moving bilateral LE spontaneously, attempting to move bilateral UE but unable 2/ 2 restraints - Psychiatric Exam Psychiatric exam: Normal Affect, Normal Mood - Skin Skin Exam: Dry, Intact (except as noted in extremities exam), Normal Color, Warm Results - Vital Signs Recent Vital Signs: Last Vital Signs Temp 98.3 F 10/16/17 06:00 Pulse 95 H 10/16/17 06:00 Resp 18 10/16/17 06:00 BP 169/96 H 10/16/17 06:00 Pulse Ox 95 10/16/17 06:00 - Labs Result Diagrams: 10/16/17 09:00 10/16/17 09:00 Labs: Laboratory Results - last 24 hr 10/15/17 10/15/17 10/15/17 07:38 08:00 11:12 WBC RBC Hgb Hct MCV MCH MCHC RDW Plt Count MPV Sodium Potassium Chloride Carbon Dioxide Anion Gap BUN Creatinine Est GFR ( Amer) Est GFR (Non-Af Amer) POC Glucose (mg/dL) 75 91 Random Glucose Calcium Total Bilirubin AST ALT Alkaline Phosphatase Total Protein Albumin Globulin Albumin/Globulin Ratio Hepatitis A IgM Ab Negative Hep Bs Antigen Negative Hep B Core IgM Ab Negative Hepatitis C Antibody Negative 10/15/17 10/16/17 10/16/17 21:47 07:27 09:00 WBC 3.8 L RBC 4.01 Hgb 13.7 L Hct 38.5 L MCV 96.0 MCH 34.2 MCHC 35.6 RDW 13.0 Plt Count 53 L MPV 11.9 H Sodium Potassium Chloride Carbon Dioxide Anion Gap BUN Creatinine Est GFR ( Amer) Est GFR (Non-Af Amer) POC Glucose (mg/dL) 92 100 Random Glucose Calcium Total Bilirubin AST ALT Alkaline Phosphatase Total Protein Albumin Globulin Albumin/Globulin Ratio Hepatitis A IgM Ab Hep Bs Antigen Hep B Core IgM Ab Hepatitis C Antibody 10/16/17 09:00 WBC RBC Hgb Hct MCV MCH MCHC RDW Plt Count MPV Sodium 142 Potassium 3.8 Chloride 109 H Carbon Dioxide 22 Anion Gap 15 BUN 2 L Creatinine 0.6 L Est GFR ( Amer) > 60 Est GFR (Non-Af Amer) > 60 POC Glucose (mg/dL) Random Glucose 102 Calcium 8.9 Total Bilirubin 1.5 H AST 600 H D ALT 137 H Alkaline Phosphatase 60 Total Protein 7.1 Albumin 4.1 Globulin 3.0 Albumin/Globulin Ratio 1.4 Hepatitis A IgM Ab Hep Bs Antigen Hep B Core IgM Ab Hepatitis C Antibody Assessment & Plan - Assessment and Plan (Free Text) Assessment: This is a 52 y/o Male with pmh of 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 Heme-onc was consulted for thrombocytopenia and concern for HIT. Plan: Metastatic testicular ca s/p surgery/chemo/radiation EtOH abuse Tobacco abuse HTN Hx traumatic ICH Seizure disorder Thrombocytopenia - worsening Leukopenia - stable -Thrombocytopenia from 119 to 41, acute 50% drop from day of admission to second hospital day (119 -> 62), leukopenia holding stable (was 4.3, now 3.2) -Unclear when last hospitalization was, so unclear if recently sensitized to Heparin, but rapidly of thrombocytopenia less suggestive of HIT otherwise, will obtain HIT panel with serotonin assay to definitively r/o -On multiple medications that can cause thrombocytopenia, can consider switching protonix to pepcid, however needs to be on his antiepileptics due to seizure disorder and hx of ICH 2/2 seizures; EtOH hx also likely contributory, and depending on what chemo and radiation regimen he underwent for his cancer, may also have contributory effect -Neuro following, appreciate their input -Unclear history from pt regarding his testicular cancer and location of metastases, will reach out to family to clarify, but given risk of recurrence, will obtain CT chest/abd/pelvis to assess for mets, CT head already obtained and is negative -No signs of active bleeding at this time, hemodynamically stable, and not pending any procedures, so will continue to monitor platelets for now, no need to transfuse at this time Patient reviewed and discussed at length with attending, Dr. Key
--- NOTE | 2017-10-16 10:35 | CON ---
DATE: LOCATION: Patient currently is admitted. Patient is currently in 2R. REASON FOR CONSULTATION: This is a Hematology/Oncology consultation for ongoing progressive leukopenia and thrombocytopenia that I have been asked to comment on. HISTORY OF PRESENT ILLNESS: Patient is a 52-year-old male with a past medical history of traumatic intracranial hemorrhage, chronic alcohol abuse, GERD, hypertension, seizure disorder, heavy tobacco abuse, mood disorder. He has a history of metastatic testicular carcinoma, status post surgery, chemotherapy and radiation, presented to the Emergency Room status post seizures that was witnessed, which was tonic-clonic. As per the patient's sisters, the patient was watching TV when he complained of abdominal pain, vomited several times, nonbilious and nonbloody. Then later had developed a tonic-clonic seizure that lasted more than five minutes with foaming at the mouth. Denies any history of bladder or bowel incontinence. Patient was combative, postictal and was given Versed on arrival by ambulance to the Emergency Room. Patient was diagnosed to have seizure five years ago when he had a traumatic intracranial hemorrhage after sustaining trauma during the seizure in 2013. Patient at that time was intubated, trached, and had a PEG, sent to a retirement and then gradually improved to the current level. Since the trauma, the patient has been having mood disorders and was having problem with remembering events. Patient had been compliant with his antiepileptic medications. As per the family, prior episode of seizure prior to this was in May of 2017 when he had missed a dose. REVIEW OF SYSTEMS: Patient is agitated, so not much history could be obtained from him, but from gleaning the notes of other physicians who have seen the patient, in the review of systems, except for the testicular surgery, abdominal surgery, trach and PEG, there is no significant past medical history except what is mentioned in the HPI. SOCIAL HISTORY: Patient does have history of heavy tobacco use and history of heavy ethanolism in the past, though on admission, the alcohol levels were within normal limits. Denies any history of illicit abuse and lives with his brother. ALLERGIES: PATIENT HAS NO KNOWN ALLERGIES. PHYSICAL EXAMINATION GENERAL: Patient is agitated, but seems to be alert and oriented to time and place. HEENT: Head is normocephalic, atraumatic. Conjunctivae pale. Sclerae anicteric. Pupils are equally reactive to light and accommodation. Examination of the oropharynx reveals no oropharyngeal lesions. Patient has bruising on the chin bilaterally. NECK: Supple. There is no adenopathy. No jugular venous distention noted. LUNGS: Clear to percussion and auscultation. CARDIOVASCULAR SYSTEM: PMI is in the fifth intercostal space, inside the midclavicular line. S1 and S2 are normal. No gallop or murmur is heard. ABDOMEN: Soft, nontender. Bowel sounds are present. No rebound, rigidity or guarding is noted. EXTREMITIES: No cyanosis, clubbing or edema. BACK: Normal inspection without any paraspinal tenderness. NEUROLOGIC: Patient is agitated, but is able to move all four extremities. SKIN: Turgor is normal. No skin lesions are noted except for the abrasions on his chin. LABORATORY DATA: Lab data were reviewed from the date of admission to today and the labs revealed the following. Patient's white count on admission on 10/12/2017 was 10.2 and his white count has dropped as low as 2.6 on 10/13/2017 and is now 3.2 with an ANC of 1.74, hemoglobin 14.9, hematocrit 39, and platelet count on admission was 119,000, has dropped down to 41,000. Chemistries revealed potassium to be low at 3.3, BUN 6, creatinine 0.7. AST 386; ALT 108, which is trending down. CK was 34,291 with CK-MB of 7.2 which is high, probably from the tonic-clonic seizures. Blood alcohol level on admission was less than 10. Cannabinoids were positive on the drug screen. MEDICATIONS: Patient's medications were reviewed. He is on Ativan 1 mg every 6 hours p.r.n. for agitation, Benadryl 50 mg IV every 8 hours. He is on Depakote 500 mg every 12 hours, folic acid 1 mg daily, insulin as needed, Nicoderm patch 1 patch daily 21 mg, amlodipine/Norvasc 5 mg daily, pantoprazole 40 mg daily, Seroquel 50 mg p.o. in the a.m. Patient is on IV fluids 1000 mL at 150 an hour. He is on Trileptal 300 mg p.o. b.i.d. He is on thiamine 100 mg p.o. daily. ASSESSMENT NOTES AND PLAN: Seizure disorder secondary to traumatic brain injury in the past; history of metastatic testicular carcinoma, status post surgery, chemotherapy and radiation chronically, clinically in remission. Now has new onset of pancytopenia, most likely appears to be drug related, as when he came in, his platelet count was modestly low at 119,000, now it is significantly low, raising the possibility of drug-related issue. We will screen the patient for deficiencies as well and monitor the patient carefully. If the counts continue to then some of the drugs that have chronically been used for treatment of his seizures may have to be investigated as being a cause of the fact if the counts continue to drop. If necessary, we will plan on doing a bone marrow aspiration to further confirm our diagnosis or to look into the marrow where there could be the primary pathology. We will monitor serial blood count before making that decision. We will follow the patient with you and appropriate labs have been ordered, so once we have those results, we will be able to comment on how to manage the patient as well. We will speak with primary attending as well who is involved in the management of this patient. Irene Key MD
[2017-10-16 10:40] LABS: CK-MB 4.2 ng/mL (0.0-3.6)
--- NOTE | 2017-10-16 13:22 | CP.PCM.PN ---
Subjective - Date & Time of Evaluation Date of Evaluation: 10/16/17 Time of Evaluation: 13:17 - Subjective Subjective: Mr. Bernal was seen and examined at the bedside. He is alert, with episode of confusion. He is able to verbalize person ( [place]), but confused to time ( 1996) , and place ( [facility]). He was able to verbalize his zipcode with street address off by 1 number. He recognize his sisters.He was able to follow simple commands, but towards the end of assessment he is becoming agitated. He remains with bilateral wrist restraints. He had an episode of agitation/ combativeness this morning which he was medicated. He was not able to pull his heplock and IVF is infusing well. According to his sister, he is able to tolerate all thicken fluids that they offer him. Objective - Vital Signs/Intake and Output Vital Signs (last 24 hours): Temp Pulse Resp BP Pulse Ox 98.3 F 92 H 18 142/68 95 10/16/17 06:00 10/16/17 11:41 10/16/17 06:00 10/16/17 11:41 10/16/17 06:00 Intake and Output: 10/16/17 10/16/17 06:59 18:59 Intake Total 1080 2400 Output Total 4400 Balance -3320 2400 - Medications Medications: Current Medications Amlodipine Besylate (Norvasc) 5 mg PO DAILY [facility] Last Admin: 10/16/17 11:41 Dose: 5 mg Diphenhydramine HCl (Benadryl) 50 mg IVP Q8H [facility]N PRN Reason: Agitation Last Admin: 10/16/17 06:02 Dose: 50 mg Folic Acid (Folic Acid) 1 mg PO DAILY [facility] Last Admin: 10/16/17 11:41 Dose: 1 mg Sodium Chloride (Sodium Chloride 0.9%) 1,000 mls @ 200 mls/hr IV .Q5H [facility] Last Admin: 10/16/17 07:59 Dose: 200 mls/hr Insulin Human Regular (Humulin R Low) 0 units SC ACHS [facility] PRN Reason: Protocol Last Admin: 10/16/17 07:56 Dose: Not Given Lorazepam (Ativan) 1 mg IVP Q6H PRN; Protocol PRN Reason: Agitation Last Admin: 03/28/18 06:24 Dose: 1 mg Lorazepam (Ativan) 2 mg PO Q6H [facility] PRN Reason: Protocol Last Admin: 10/16/17 11:41 Dose: 2 mg Nicotine (Nicoderm Cq) 1 patch TD DAILY [facility] Last Admin: 10/16/17 11:27 Dose: Not Given Oxcarbazepine (Trileptal) 300 mg PO BID [facility] PRN Reason: Protocol Last Admin: 10/16/17 11:44 Dose: 300 mg Pantoprazole Sodium (Protonix Ec Tab) 40 mg PO ACB [facility] Last Admin: 10/16/17 07:58 Dose: 40 mg Risperidone (Risperdal Oral Soln) 0.5 mg PO BID [facility] PRN Reason: Protocol Last Admin: 10/16/17 11:42 Dose: 0.5 mg Thiamine HCl (Vitamin B1 Tab) 100 mg PO DAILY [facility] Last Admin: 10/16/17 11:43 Dose: 100 mg - Labs Labs: 10/16/17 09:00 10/16/17 09:00 - Constitutional Appears: No Acute Distress - Head Exam Head Exam: NORMAL INSPECTION - Neurological Exam Neurological Exam: Awake Neuro motor strength exam: Left Upper Extremity: 5, Right Upper Extremity: 5, Left Lower Extremity: 5, Right Lower Extremity: 5 Additional comments: He is awake, alert to his immediate family members, with episode of confusion, hallucination, agitation. He is able to move all extremities spontaneously except limited movement of his bilateral upper extremities due to wrist restraints. Assessment and Plan (1) Seizure Assessment & Plan: Case discussed with Dr. Hodge, continue all current medical regimen.Pending EEG due to his behavior. Recommend supportive care. Status: Acute
--- NOTE | 2017-10-16 13:33 | CP.PCM.PN ---
<Lane Mora - Last Filed: 10/16/17 14:23> Subjective - Date & Time of Evaluation Date of Evaluation: 10/16/17 Time of Evaluation: 08:00 - Subjective Subjective: Lane Mora DO, PGY-1: Hospitalist Service Patient seen and examined at bedside. Patient does not know where he is and does not know the date or time. Patient denies having any abdominal pain or dyspnea. Patient is in two point upper extremity restraints. Objective - Vital Signs/Intake and Output Vital Signs (last 24 hours): Temp Pulse Resp BP Pulse Ox 98.3 F 92 H 18 142/68 95 10/16/17 06:00 10/16/17 11:41 10/16/17 06:00 10/16/17 11:41 10/16/17 06:00 Intake and Output: 10/16/17 10/16/17 06:59 18:59 Intake Total 1080 2400 Output Total 4400 Balance -3320 2400 - Medications Medications: Current Medications Amlodipine Besylate (Norvasc) 5 mg PO DAILY [facility] Last Admin: 10/16/17 11:41 Dose: 5 mg Diphenhydramine HCl (Benadryl) 50 mg IVP Q8H PRN PRN Reason: Agitation Last Admin: 10/16/17 06:02 Dose: 50 mg Folic Acid (Folic Acid) 1 mg PO DAILY [facility] Last Admin: 10/16/17 11:41 Dose: 1 mg Sodium Chloride (Sodium Chloride 0.9%) 1,000 mls @ 200 mls/hr IV .Q5H [facility] Last Admin: 10/16/17 07:59 Dose: 200 mls/hr Insulin Human Regular (Humulin R Low) 0 units SC ACHS [facility] PRN Reason: Protocol Last Admin: 10/16/17 07:56 Dose: Not Given Lorazepam (Ativan) 1 mg IVP Q6H PRN; Protocol PRN Reason: Agitation Last Admin: 10/16/17 06:24 Dose: 1 mg Lorazepam (Ativan) 2 mg PO Q6H [facility] PRN Reason: Protocol Last Admin: 10/16/17 11:41 Dose: 2 mg Nicotine (Nicoderm Cq) 1 patch TD DAILY [facility] Last Admin: 10/16/17 11:27 Dose: Not Given Oxcarbazepine (Trileptal) 300 mg PO BID [facility] PRN Reason: Protocol Last Admin: 10/16/17 11:44 Dose: 300 mg Pantoprazole Sodium (Protonix Ec Tab) 40 mg PO ACB [facility] Last Admin: 10/16/17 07:58 Dose: 40 mg Risperidone (Risperdal Oral Soln) 0.5 mg PO BID [facility] PRN Reason: Protocol Last Admin: 10/16/17 11:42 Dose: 0.5 mg Thiamine HCl (Vitamin B1 Tab) 100 mg PO DAILY [facility] Last Admin: 10/16/17 11:43 Dose: 100 mg - Labs Labs: 10/16/17 09:00 10/16/17 09:00 - Constitutional Appears: Well, Non-toxic - Head Exam Head Exam: NORMOCEPHALIC - Eye Exam Eye Exam: EOMI, Normal appearance - ENT Exam ENT Exam: Mucous Membranes Moist, Normal Oropharynx - Neck Exam Neck Exam: Normal Inspection - Respiratory Exam Respiratory Exam: Clear to Ausculation Bilateral, NORMAL BREATHING PATTERN. absent: Accessory Muscle Use - Cardiovascular Exam Cardiovascular Exam: RRR, +S1, +S2 - GI/Abdominal Exam GI & Abdominal Exam: Soft, Normal Bowel Sounds - Rectal Exam Rectal Exam: NORMAL INSPECTION - Extremities Exam Extremities Exam: Normal Inspection - Back Exam Back Exam: NORMAL INSPECTION. absent: CVA tenderness (L), CVA tenderness (R) - Neurological Exam Neurological Exam: Altered - Psychiatric Exam Psychiatric exam: Normal Affect, Normal Mood - Skin Skin Exam: Dry, Intact, Normal Color, Warm Assessment and Plan - Assessment and Plan (Free Text) Assessment: 52 year old male with a past medical history of TBI, alcohol abuse, seizures, disinhibition, who presented to [facility] [place] and has been confused, agitated, and delirious. Psychiatry and neurology are on board. He has rhabdomyolysis secondary to his seizure and is being given IV fluids. He is on different level of restraints depending on how violent, disruptive, or combative he gets. He is awaiting EEG and MRI. Plan: 1) Epilepsy and agitation in a patient with history of TBI and alcohol abuse - Depakote discontinued due to possibility of elevating LFTs - Trileptal 300 mg BID - Risperidone 0.5 mg PO BID - Ativan 2 mg PO q6h [facility] - Ativan 1 mg IVP PRN q6h - Benadryl 50 mg q8h PRN for agitation - Neurology recommendations appreciated - Psychiatry recommendations appreciated 2) Malnutrition and history of alcoholism on AED - Folic acid, thiamine 3) Hypertension - Amlodipine 5 mg 4) Rhabdomyolysis secondary to seizures - CPK treniding up from 298 on admission to 42,826 - NS increased from 200 to 300 ml/hr 5) Elevated LFTs - Will continue to trend and avoid hepatotoxins - Protonix discontinued, pepcid 20 mg HS instead - Seroquel and depakote discontinued per psychiatry 6) Thrombocytopenia, multifactorial in a patient with testicular cancer treated with chemoradiation and surgery. - Hematology consult appreciated, HIT assay, serotinin release assay. Further recommend CT chest/abdomen/pelvis to assess for metastatic lesions. Case reviewed and discussed with Dr. Iglesias. <Titi Iglesias - Last Filed: 10/16/17 15:22> Objective - Vital Signs/Intake and Output Vital Signs (last 24 hours): Temp Pulse Resp BP Pulse Ox 99 F 101 H 20 182/112 H 95 10/16/17 12:00 10/16/17 14:00 10/16/17 12:00 10/16/17 12:00 10/16/17 06:00 Intake and Output: 10/16/17 10/16/17 06:59 18:59 Intake Total 1080 2400 Output Total 4400 Balance -3320 2400 - Medications Medications: Current Medications Amlodipine Besylate (Norvasc) 5 mg PO DAILY [facility] Last Admin: 10/16/17 11:41 Dose: 5 mg Diphenhydramine HCl (Benadryl) 50 mg IVP Q8H PRN PRN Reason: Agitation Last Admin: 10/16/17 06:02 Dose: 50 mg Famotidine (Pepcid) 20 mg PO HS [facility] Folic Acid (Folic Acid) 1 mg PO DAILY [facility] Last Admin: 10/16/17 11:41 Dose: 1 mg Sodium Chloride (Sodium Chloride 0.9%) 1,000 mls @ 300 mls/hr IV .Q3H20M [facility] Insulin Human Regular (Humulin R Low) 0 units SC ACHS [facility] PRN Reason: Protocol Last Admin: 10/16/17 11:30 Dose: Not Given Lorazepam (Ativan) 1 mg IVP Q6H PRN; Protocol PRN Reason: Agitation Last Admin: 10/16/17 06:24 Dose: 1 mg Lorazepam (Ativan) 2 mg PO Q6H [facility] PRN Reason: Protocol Last Admin: 10/16/17 11:41 Dose: 2 mg Nicotine (Nicoderm Cq) 1 patch TD DAILY [facility] Last Admin: 10/16/17 11:27 Dose: Not Given Oxcarbazepine (Trileptal) 300 mg PO BID [facility] PRN Reason: Protocol Last Admin: 10/16/17 11:44 Dose: 300 mg Risperidone (Risperdal Oral Soln) 0.5 mg PO BID [facility] PRN Reason: Protocol Last Admin: 10/16/17 11:42 Dose: 0.5 mg Thiamine HCl (Vitamin B1 Tab) 100 mg PO DAILY [facility] Last Admin: 10/16/17 11:43 Dose: 100 mg - Labs Labs: 10/16/17 09:00 10/16/17 09:00 Attending/Attestation - Attestation I have personally seen and examined this patient.: Yes I have fully participated in the care of the patient.: Yes I have reviewed all pertinent clinical information, including history, physical exam and plan: Yes Notes (Text): 10/16/17 15:20 52 year old male with past medical history of TBI, alcohol abuse, seizure disorder and hypertension who presented with altered mental status and seizures. He was found to have rhabdomyolysis, elevated LFTs and delirium. He is being followed by neurology and psychiatry. EEG is pending. His CPK and LFTs continue to increase. Will increase his IVF. Depakote and trileptal on hold for now. Psychiatry is following and also has changed his seroquel to risperdal. He is on ativan roland/prn for agitation and withdrawal symptoms. He also has thrombocytopenia. Hematology is following and ordered for CT chest/ abd/pelvis. He was counselled on alcohol abstinence. Continue with folic acid and thiamine. He is currently on 1:1. Continue with restraints as needed. Will follow up with psychiatry recommendations. Titi Iglesias MD Hospitalist.
[2017-10-16 13:39] LABS: AMYLASE 41 U/L (35-125); LIPASE 118 U/L (23-300)
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
[2017-10-17] MEDS: Sodium Chloride 0.9% 1,000 ML IV SCH ×8 (00:30→23:40)
[2017-10-17] MEDS: DiphenhydrAMINE 50 mg/ml Inj IVP PRN (05:51)
[2017-10-17] MEDS: Insulin Reg-LOW-Coverage SC SCH ×4 (07:39→21:45)
[2017-10-17 09:39] LABS: BASO # 0.01 K/mm3 (0.0-2.0); BASO % 0.3 % (0.0-3.0); EOS # 0.1 (0.0-0.7); EOS % 2.2 % (1.5-5.0); GRAN # 1.81 (1.4-6.5); GRAN % 56.2 % (50.0-68.0); HEMOGLOBIN 13.2 g/dL (14.0-18.0); LYMPH # 0.8 (1.2-3.4); LYMPH % 23.9 % (22.0-35.0); MEAN CELL VOLUME 96.2 fl (80.0-105.0); MEAN CORPUSCULAR HEMOGLOBIN 33.8 pg (25.0-35.0); MEAN CORPUSCULAR HGB CONC 35.2 g/dl (31.0-37.0); MEAN PLATELET VOLUME 11.6 fl (7.0-11.0); MONO # 0.6 (0.1-0.6); MONO % 17.4 % (1.0-6.0); RBC 3.9 10^6/uL (3.5-6.1); RED CELL DISTRIBUTION WIDTH 13.2 % (11.5-14.5); WHITE BLOOD COUNT 3.2 10^3/ul (4.5-11.0)
[2017-10-17 09:54] LABS: ALB/GLOB RATIO 1.4 (1.1-1.8); ALBUMIN 4.2 g/dL (3.0-4.8); ALT/SGPT 145 U/L (7-56); AST/SGOT 604 U/L (17-59); BLOOD UREA NITROGEN 3 mg/dL (7-21); CALCIUM 9.5 mg/dL (8.4-10.5); GFR AFRICAN-AMERICAN > 60; GFR NON-AFRICAN AMERICAN > 60
[2017-10-17 11:09] LABS: CK-MB 2.6 ng/mL (0.0-3.6)
--- NOTE | 2017-10-17 11:13 | CP.PCM.PN ---
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 Heme-onc was consulted for thrombocytopenia and concern for HIT. Today, patient remains restrained, but is not overtly aggressive or agitated. Overnight, patient continued to have intermittent agitation/hallucinations. This AM, denies hallucinations, oriented x2 (self and location, not to year). Denies chest pain, shortness of breath, emesis. Objective - Vital Signs/Intake and Output Vital Signs (last 24 hours): Temp Pulse Resp BP Pulse Ox 98.9 F 97 H 20 150/80 99 10/17/17 00:01 10/17/17 09:44 10/17/17 00:01 10/17/17 09:44 10/17/17 00:01 Intake and Output: 10/17/17 10/17/17 06:59 18:59 Intake Total 3900 Output Total 3050 Balance 850 - Medications Medications: Current Medications Amlodipine Besylate (Norvasc) 5 mg PO DAILY [facility] Last Admin: 10/17/17 09:44 Dose: 5 mg Clonidine HCl (Catapres) 0.1 mg PO BID PRN PRN Reason: Systolic Blood Pressure Diphenhydramine HCl (Benadryl) 50 mg IVP Q8H PRN PRN Reason: Agitation Last Admin: 10/17/17 05:51 Dose: 50 mg Famotidine (Pepcid) 20 mg PO HS [facility] Last Admin: 10/16/17 21:21 Dose: 20 mg Folic Acid (Folic Acid) 1 mg PO DAILY [facility] Last Admin: 10/16/17 11:41 Dose: 1 mg Sodium Chloride (Sodium Chloride 0.9%) 1,000 mls @ 300 mls/hr IV .Q3H20M [facility] Last Admin: 10/17/17 09:51 Dose: 300 mls/hr Insulin Human Regular (Humulin R Low) 0 units SC ACHS [facility] PRN Reason: Protocol Last Admin: 10/17/17 07:39 Dose: Not Given Lorazepam (Ativan) 1 mg IVP Q6H PRN; Protocol PRN Reason: Agitation Last Admin: 10/16/17 06:24 Dose: 1 mg Lorazepam (Ativan) 2 mg PO Q6H [facility] PRN Reason: Protocol Last Admin: 10/17/17 09:44 Dose: 2 mg Nicotine (Nicoderm Cq) 1 patch TD DAILY [facility] Last Admin: 10/17/17 09:44 Dose: 1 patch Oxcarbazepine (Trileptal) 450 mg PO BID [facility] PRN Reason: Protocol Risperidone (Risperdal Oral Soln) 0.5 mg PO BID [facility] PRN Reason: Protocol Last Admin: 10/17/17 09:46 Dose: 0.5 mg Thiamine HCl (Vitamin B1 Tab) 100 mg PO DAILY [facility] Last Admin: 10/17/17 09:44 Dose: 100 mg - Labs Labs: 10/17/17 09:30 10/17/17 09:30 - Additional Findings Additional findings: - Constitutional Appears: Non-toxic, No Acute Distress, Unkempt, bilateral UE restraints - Head Exam Head Exam: ATRAUMATIC, NORMAL INSPECTION, NORMOCEPHALIC - Eye Exam Eye Exam: EOMI, Normal appearance. absent: Conjunctival injection, Scleral icterus Pupil Exam: absent: Irregular, Unequal - ENT Exam ENT Exam: Mucous Membranes Moist - Neck Exam Neck exam: Positive for: Full Rom, Normal Inspection - Respiratory Exam Respiratory Exam: Decreased Breath Sounds (mildly decreased breath sounds in all breaux, otherwise CTAB), Clear to Auscultation Bilateral, NORMAL BREATHING PATTERN. absent: Accessory Muscle Use, Chest Wall Tenderness, Rales, Rhonchi, Wheezes - Cardiovascular Exam Cardiovascular Exam: REGULAR RHYTHM, RRR, +S1, +S2. absent: Bradycardia, Tachycardia, Irregular Rhythm, JVD, +S4 - GI/Abdominal Exam GI & Abdominal Exam: Normal Bowel Sounds, Hepatosplenomegaly (spleen palpable laterally from left flank), Soft. absent: Distended, Firm, Rigid, Tenderness - Extremities Exam Extremities exam: Positive for: normal inspection. Negative for: calf tenderness, pedal edema, tenderness Additional comments: scattered echymosis and two small scabs along anterior portion of bilateral LE in various states of healing - Neurological Exam Additional comments: awake and alert, oriented to self and location, not oriented to year moving bilateral LE spontaneously, attempting to move bilateral UE but unable 2/ 2 restraints - Psychiatric Exam Psychiatric exam: Normal Affect, Normal Mood - Skin Skin Exam: Dry, Intact (except as noted in extremities exam), Normal Color, Warm Assessment and Plan - Assessment and Plan (Free Text) Assessment: This is a 52 y/o Male with pmh of 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 Heme-onc was consulted for thrombocytopenia and concern for HIT. Plan: Metastatic testicular ca s/p surgery/chemo/radiation EtOH abuse Tobacco abuse HTN Hx traumatic ICH Seizure disorder Thrombocytopenia - stable Leukopenia - stable Elevated LFTs Rhabdo - improved -Thrombocytopenia from 119 to 41, acute 50% drop from day of admission to second hospital day (119 -> 62), 49 today -leukopenia holding stable (was 4.3, now 3.2), 3.2 today -Unclear when last hospitalization was, so unclear if recently sensitized to Heparin, but rapidly of thrombocytopenia less suggestive of HIT otherwise, will obtain HIT panel with serotonin assay to definitively r/o -On multiple medications that can cause thrombocytopenia, can consider switching protonix to pepcid, however needs to be on his antiepileptics due to seizure disorder and hx of ICH 2/2 seizures; EtOH hx also likely contributory, and depending on what chemo and radiation regimen he underwent for his cancer, may also have contributory effect -Neuro following, appreciate their input; defer to neuro for appropriate anti- epileptic medications in setting of thrombocytopenia and elevated LFTs -LFT elevations likely alcoholic hepatitis vs -Unclear history from pt regarding his testicular cancer and location of metastases, will reach out to family to clarify, but given risk of recurrence, will obtain CT chest/abd/pelvis to assess for mets, CT head already obtained and is negative -No signs of active bleeding at this time, hemodynamically stable, and not pending any procedures, so will continue to monitor platelets for now, no need to transfuse at this time Patient reviewed and discussed at length with attending, Dr. Key
--- NOTE | 2017-10-17 13:43 | CP.PCM.PN ---
Subjective - Date & Time of Evaluation Date of Evaluation: 10/17/17 Time of Evaluation: 13:43 - Subjective Subjective: Mr. Bernal was seen and examined at the bedside. He is alert, with episode of confusion. He is able to verbalize person ( [place]), but confused to time ( 1981) , and place ( [facility]). He was able to verbalize his zipcode with street address off by [address] He recognize his sisters.He was able to follow simple commands, but towards the end of assessment he is becoming agitated. He remains with bilateral wrist restraints. He had an episode of agitation/ combativeness this morning which he was medicated. He was not able to pull his heplock and IVF is infusing well. According to the sister, he refused to eat today, advise the sitter to keep on offering to the patient. He is on 1;1 sitter for patient safety. Objective - Vital Signs/Intake and Output Vital Signs (last 24 hours): Temp Pulse Resp BP Pulse Ox 97.7 F 100 H 20 150/80 99 10/17/17 12:00 10/17/17 12:00 10/17/17 12:00 10/17/17 09:44 10/17/17 00:01 Intake and Output: 10/17/17 10/17/17 06:59 18:59 Intake Total 3900 600 Output Total 3050 700 Balance 850 -100 - Medications Medications: Current Medications Amlodipine Besylate (Norvasc) 5 mg PO DAILY [facility] Last Admin: 10/17/17 09:44 Dose: 5 mg Clonidine HCl (Catapres) 0.1 mg PO BID PRN PRN Reason: Systolic Blood Pressure Diphenhydramine HCl (Benadryl) 50 mg IVP Q8H PRN PRN Reason: Agitation Last Admin: 10/17/17 05:51 Dose: 50 mg Famotidine (Pepcid) 20 mg PO HS [facility] Last Admin: 10/16/17 21:21 Dose: 20 mg Folic Acid (Folic Acid) 1 mg PO DAILY [facility] Last Admin: 10/17/17 09:45 Dose: 1 mg Sodium Chloride (Sodium Chloride 0.9%) 1,000 mls @ 300 mls/hr IV .Q3H20M [facility] Last Admin: 10/17/17 09:51 Dose: 300 mls/hr Insulin Human Regular (Humulin R Low) 0 units SC ACHS [facility] PRN Reason: Protocol Last Admin: 10/17/17 12:28 Dose: Not Given Lorazepam (Ativan) 1 mg IVP Q6H PRN; Protocol PRN Reason: Agitation Last Admin: 10/17/17 12:17 Dose: 1 mg Lorazepam (Ativan) 2 mg PO Q6H [facility] PRN Reason: Protocol Last Admin: 10/17/17 09:44 Dose: 2 mg Nicotine (Nicoderm Cq) 1 patch TD DAILY [facility] Last Admin: 10/17/17 09:44 Dose: 1 patch Oxcarbazepine (Trileptal) 450 mg PO BID [facility] PRN Reason: Protocol Risperidone (Risperdal Oral Soln) 0.5 mg PO BID [facility] PRN Reason: Protocol Last Admin: 10/17/17 09:46 Dose: 0.5 mg Thiamine HCl (Vitamin B1 Tab) 100 mg PO DAILY [facility] Last Admin: 10/17/17 09:44 Dose: 100 mg - Labs Labs: 10/17/17 09:30 10/17/17 09:30 - Constitutional Appears: No Acute Distress - Head Exam Head Exam: NORMAL INSPECTION - Neurological Exam Neurological Exam: Alert, Awake Neuro motor strength exam: Left Upper Extremity: 5, Right Upper Extremity: 5, Left Lower Extremity: 5, Right Lower Extremity: 5 Additional comments: He is awake, alert with episode of confusion, agitation. Assessment and Plan (1) Seizure Assessment & Plan: Case discussed with Dr. Hodge, continue all current medical regimen.Pending EEG due to his behavior. Recommend supportive care. Status: Acute
--- NOTE | 2017-10-17 15:51 | CP.PCM.PN ---
<Lane Mora - Last Filed: 10/17/17 17:51> Subjective - Date & Time of Evaluation Date of Evaluation: 10/17/17 Time of Evaluation: 15:48 - Subjective Subjective: Patient seen and examined at bedside. Patient is actively hallucinating, delirious. Overnight patient was given PRN sedatives. Patient in two point restraint. Objective - Vital Signs/Intake and Output Vital Signs (last 24 hours): Temp Pulse Resp BP Pulse Ox 97.7 F 100 H 20 150/80 99 10/17/17 12:00 10/17/17 12:00 10/17/17 12:00 10/17/17 09:44 10/17/17 00:01 Intake and Output: 10/17/17 10/17/17 06:59 18:59 Intake Total 3900 600 Output Total 3050 700 Balance 850 -100 - Medications Medications: Current Medications Amlodipine Besylate (Norvasc) 5 mg PO DAILY [facility] Last Admin: 10/17/17 09:44 Dose: 5 mg Clonidine HCl (Catapres) 0.1 mg PO BID PRN PRN Reason: Systolic Blood Pressure Diphenhydramine HCl (Benadryl) 50 mg IVP Q8H PRN PRN Reason: Agitation Last Admin: 10/17/17 05:51 Dose: 50 mg Famotidine (Pepcid) 20 mg PO HS [facility] Last Admin: 10/16/17 21:21 Dose: 20 mg Folic Acid (Folic Acid) 1 mg PO DAILY [facility] Last Admin: 10/17/17 09:45 Dose: 1 mg Sodium Chloride (Sodium Chloride 0.9%) 1,000 mls @ 300 mls/hr IV .Q3H20M [facility] Last Admin: 10/17/17 09:51 Dose: 300 mls/hr Insulin Human Regular (Humulin R Low) 0 units SC ACHS [facility] PRN Reason: Protocol Last Admin: 10/17/17 12:28 Dose: Not Given Lorazepam (Ativan) 1 mg IVP Q6H PRN; Protocol PRN Reason: Agitation Last Admin: 10/17/17 12:17 Dose: 1 mg Lorazepam (Ativan) 2 mg PO Q6H [facility] PRN Reason: Protocol Last Admin: 10/17/17 09:44 Dose: 2 mg Nicotine (Nicoderm Cq) 1 patch TD DAILY [facility] Last Admin: 10/17/17 09:44 Dose: 1 patch Oxcarbazepine (Trileptal) 450 mg PO BID [facility] PRN Reason: Protocol Risperidone (Risperdal Oral Soln) 0.5 mg PO BID [facility] PRN Reason: Protocol Last Admin: 10/17/17 09:46 Dose: 0.5 mg Thiamine HCl (Vitamin B1 Tab) 100 mg PO DAILY [facility] Last Admin: 10/17/17 09:44 Dose: 100 mg - Labs Labs: 10/17/17 09:30 10/17/17 09:30 - Constitutional Appears: Confused - Head Exam Head Exam: NORMOCEPHALIC - Eye Exam Additional comments: eyes swollen and tearing along the lateral epicanthus - ENT Exam ENT Exam: Mucous Membranes Moist, Normal Oropharynx - Neck Exam Neck Exam: Normal Inspection - Respiratory Exam Respiratory Exam: Clear to Ausculation Bilateral, NORMAL BREATHING PATTERN. absent: Accessory Muscle Use - Cardiovascular Exam Cardiovascular Exam: RRR, +S1, +S2 - GI/Abdominal Exam GI & Abdominal Exam: Soft, Normal Bowel Sounds - Extremities Exam Extremities Exam: Normal Inspection. absent: Calf Tenderness, Pedal Edema - Neurological Exam Neurological Exam: Altered - Psychiatric Exam Psychiatric exam: Agitated - Skin Skin Exam: Dry, Intact, Normal Color, Warm Assessment and Plan - Assessment and Plan (Free Text) Assessment: 52 year old male with a past medical history of TBI, alcohol abuse, seizures, disinhibition, who [place] [facility] and has been confused, agitated, and delirious. Psychiatry and neurology are on board. He has rhabdomyolysis secondary to his seizure and is being given IV fluids. He is on different level of restraints depending on how violent, disruptive, or combative he gets. He is awaiting EEG and MRI. Plan: 1) Epilepsy and agitation in a patient with history of TBI and alcohol abuse - Depakote discontinued due to possibility of elevating LFTs - Trileptal 450 mg BID - Risperidone 0.5 mg PO BID - Ativan 2 mg PO q6h [facility] - Ativan 1 mg IVP PRN q6h - Benadryl 50 mg q8h PRN for agitation - Neurology recommendations appreciated - Psychiatry recommendations appreciated 2) Malnutrition and history of alcoholism on AED - Folic acid, thiamine 3) Elevated blood pressure - Amlodipine 5 mg - Clonidine 0.1 mg BID 4) Rhabdomyolysis secondary to seizures - CPK beginning to trend down from 42,826 to 37,119 today; will continue to monitor - NS 300 ml/hr - Condom catheter placed to monitor strict I/O 5) Elevated LFTs and concern for drug induced pancreatitis - Will continue to trend and avoid hepatotoxins - LFTs remain unchanged with T.bili 1.5, AST 604, and ALT 145 - Protonix discontinued, pepcid 20 mg HS instead - Seroquel and depakote discontinued per psychiatry - Amlyase and lipase negative for drug-induced pancreatitis 6) Thrombocytopenia, multifactorial in a patient with testicular cancer treated with chemoradiation and surgery. - Hematology consult appreciated, HIT assay, serotinin release assay. - Further recommend CT chest/abdomen/pelvis to assess for metastatic lesions. - Peripheral smear reveals reduced white blood cells and reduced platelets without evidence of rouleoux formation or large sized platelets Case reviewed and discussed with Dr. Iglesias. <Tiit Iglesias - Last Filed: 10/18/17 07:09> Objective - Vital Signs/Intake and Output Vital Signs (last 24 hours): Temp Pulse Resp BP Pulse Ox 97.9 F 76 20 150/89 96 10/18/17 06:00 10/18/17 06:00 10/18/17 06:00 10/18/17 06:00 10/18/17 06:00 Intake and Output: 10/18/17 10/18/17 06:59 18:59 Intake Total 4080 Output Total 1700 Balance 2380 - Medications Medications: Current Medications Amlodipine Besylate (Norvasc) 5 mg PO DAILY [facility] Last Admin: 10/17/17 09:44 Dose: 5 mg Clonidine HCl (Catapres) 0.1 mg PO BID PRN PRN Reason: Systolic Blood Pressure Diphenhydramine HCl (Benadryl) 50 mg IVP Q8H PRN PRN Reason: Agitation Last Admin: 10/17/17 05:51 Dose: 50 mg Famotidine (Pepcid) 20 mg PO HS [facility] Last Admin: 10/17/17 21:41 Dose: 20 mg Folic Acid (Folic Acid) 1 mg PO DAILY [facility] Last Admin: 10/17/17 09:45 Dose: 1 mg Sodium Chloride (Sodium Chloride 0.9%) 1,000 mls @ 300 mls/hr IV .Q3H20M [facility] Last Admin: 10/18/17 05:47 Dose: 300 mls/hr Insulin Human Regular (Humulin R Low) 0 units SC ACHS [facility] PRN Reason: Protocol Last Admin: 10/17/17 21:45 Dose: Not Given Lorazepam (Ativan) 1 mg IVP Q6H PRN; Protocol PRN Reason: Agitation Last Admin: 10/18/17 01:33 Dose: 1 mg Lorazepam (Ativan) 2 mg PO Q6H [facility] PRN Reason: Protocol Last Admin: 10/18/17 05:31 Dose: 2 mg Nicotine (Nicoderm Cq) 1 patch TD DAILY [facility] Last Admin: 10/17/17 09:44 Dose: 1 patch Oxcarbazepine (Trileptal) 450 mg PO BID [facility] PRN Reason: Protocol Risperidone (Risperdal Oral Soln) 0.5 mg PO BID [facility] PRN Reason: Protocol Last Admin: 10/17/17 20:18 Dose: 0.5 mg Thiamine HCl (Vitamin B1 Tab) 100 mg PO DAILY [facility] Last Admin: 10/17/17 09:44 Dose: 100 mg - Labs Labs: 10/17/17 09:30 10/17/17 09:30 Attending/Attestation - Attestation I have personally seen and examined this patient.: Yes I have fully participated in the care of the patient.: Yes I have reviewed all pertinent clinical information, including history, physical exam and plan: Yes Notes (Text): 10/17/17 52 year old male with past medical history of TBI, alcohol abuse, seizure disorder and hypertension who presented with altered mental status and seizures. He was found to have rhabdomyolysis, elevated LFTs and delirium. He is being followed by neurology and psychiatry. EEG is still pending. Continue with IVF for rhabdomyolysis. CPK is still elevated but beginning to come down after fluids were increased yesterday. Transaminitis is likely multifactorial secondary to ETOH abuse and medications. Depakote and seroquel were discontinued. Continue with trileptal as per neurology. Continue to monitor LFTs closely; consider GI evaluation is continues to increase. Psychiatry is following patient. He is currently on risperdal. He is on ativan roland/prn for agitation and withdrawal symptoms. He also has thrombocytopenia for which hematology is following and ordered for CT chest/abd/pelvis. He was counselled on alcohol abstinence. Continue with folic acid and thiamine. He is currently on 1:1. Continue with restraints as needed. Will follow up with psychiatry recommendations. Titi Iglesias MD Hospitalist.
--- NOTE | 2017-10-17 23:19 | PN ---
DATE: SUBJECTIVE: The patient is a 52-year-old male with past medical history of traumatic brain injury, history of seizure disorder, history of alcohol use disorder, GERD, hypertension. The patient also has history of metastatic testicular cancer, status post surgery, chemo and radiation. The patient was admitted on the medical site status post weakness, seizure at home. The patient in delirium stage, that is why this check writer salesperson got involved into the patient's care. The patient was seen and examined today. The patient is still in soft restraint in the upper extremities. The patient is not agitated, but seems to be restless, confused. At times, the patient does not make sense with his statement. This check writer salesperson initiated scheduled dose of Ativan 2 mg four times a day scheduled as well as Risperdal was started yesterday and Seroquel was discontinued. The patient's vital signs seem to be stable, but the patient is tachycardic, blood pressure is elevated to 150/80, pulse ox 99%, respirations 20. Medical team has concerns about the patient's thrombocytopenia from 119 to 41 and elevation of LFTs. This check writer salesperson recommended Neurology followup as well as Hematology/Oncology followup as well as this check writer salesperson would recommend to consider to have GI input in regards of elevated liver enzymes. This check writer salesperson recommended also amylase and lipase yesterday, which came back within normal limit. Based on results, the patient's CT scan was negative. No active signs of bleeding at this time. The patient seems to be hemodynamically stable. MENTAL STATUS EXAMINATION: The patient presented to be alert, but at times confused, intermittent eye contacts. Speech was at times incoherent. Mood, patient was not able to describe. Affect is flat. Thought process seems to be disorganized. Thought content, the patient denied visual, auditory, or tactile hallucinations, but at the same time, patient observed actively hallucinating the same things. Insight and judgment seem to be impaired. Impulses are unpredictable. The patient is on one-to-one. IMPRESSION: The patient has history of alcohol use disorder. This check writer salesperson cannot exclude the patient has multifactorial delirium due to general medical condition, thrombocytopenia, alcohol withdrawal symptoms, and delirium cannot be excluded. The patient also has traumatic brain injury as well as depression and anxiety. PLAN: Continue current management. Continue current medications. Would consider to increase dose of Ativan, more over Ativan will be safer for the patient. Hematology/Oncology involved. GI should be involved as well. This check writer salesperson will follow up and advise accordingly. Neurology service is also involved. The patient is on one-to-one, which should be continued. Should you have any questions, give me a call back. Thank you very much for letting me to participate in care of your patient. Myah Philippe MD
[2017-10-18] MEDS: Sodium Chloride 0.9% 1,000 ML IV SCH ×5 (05:47→21:26)
[2017-10-18] MEDS: Insulin Reg-LOW-Coverage SC SCH ×4 (07:30→22:38)
--- NOTE | 2017-10-18 08:07 | CP.PCM.PN ---
<Lane Mora - Last Filed: 10/18/17 16:12> Subjective - Date & Time of Evaluation Date of Evaluation: 10/18/17 Time of Evaluation: 07:05 - Subjective Subjective: Lane Mora DO, PGY-1 Hospitalist Service Patient seen and examined at bedside. Patient has word finding difficulty. Patient's mood and behavior has been less agitated. Trial without 2 point restraints observed. Objective - Vital Signs/Intake and Output Vital Signs (last 24 hours): Temp Pulse Resp BP Pulse Ox 97.9 F 76 20 150/89 96 10/18/17 06:00 10/18/17 06:00 10/18/17 06:00 10/18/17 06:00 10/18/17 06:00 Intake and Output: 10/18/17 10/18/17 06:59 18:59 Intake Total 4080 Output Total 1700 Balance 2380 - Medications Medications: Current Medications Amlodipine Besylate (Norvasc) 5 mg PO DAILY [facility] Last Admin: 10/17/17 09:44 Dose: 5 mg Clonidine HCl (Catapres) 0.1 mg PO BID PRN PRN Reason: Systolic Blood Pressure Diphenhydramine HCl (Benadryl) 50 mg IVP Q8H PRN PRN Reason: Agitation Last Admin: 10/17/17 05:51 Dose: 50 mg Famotidine (Pepcid) 20 mg PO HS [facility] Last Admin: 10/17/17 21:41 Dose: 20 mg Folic Acid (Folic Acid) 1 mg PO DAILY [facility] Last Admin: 10/17/17 09:45 Dose: 1 mg Sodium Chloride (Sodium Chloride 0.9%) 1,000 mls @ 300 mls/hr IV .Q3H20M [facility] Last Admin: 10/18/17 05:47 Dose: 300 mls/hr Insulin Human Regular (Humulin R Low) 0 units SC ACHS [facility] PRN Reason: Protocol Last Admin: 10/17/17 21:45 Dose: Not Given Lorazepam (Ativan) 1 mg IVP Q6H PRN; Protocol PRN Reason: Agitation Last Admin: 10/18/17 01:33 Dose: 1 mg Lorazepam (Ativan) 2 mg PO Q6H [facility] PRN Reason: Protocol Last Admin: 10/18/17 05:31 Dose: 2 mg Nicotine (Nicoderm Cq) 1 patch TD DAILY [facility] Last Admin: 10/17/17 09:44 Dose: 1 patch Oxcarbazepine (Trileptal) 450 mg PO BID [facility] PRN Reason: Protocol Risperidone (Risperdal Oral Soln) 0.5 mg PO BID [facility] PRN Reason: Protocol Last Admin: 10/17/17 20:18 Dose: 0.5 mg Thiamine HCl (Vitamin B1 Tab) 100 mg PO DAILY [facility] Last Admin: 10/17/17 09:44 Dose: 100 mg - Labs Labs: 10/17/17 09:30 10/17/17 09:30 - Constitutional Appears: Non-toxic, No Acute Distress - Head Exam Head Exam: ATRAUMATIC, NORMOCEPHALIC - Eye Exam Eye Exam: EOMI, Normal appearance - ENT Exam ENT Exam: Mucous Membranes Moist, Normal Oropharynx - Neck Exam Neck Exam: Normal Inspection - Respiratory Exam Respiratory Exam: Clear to Ausculation Bilateral, NORMAL BREATHING PATTERN. absent: Accessory Muscle Use - Cardiovascular Exam Cardiovascular Exam: RRR, +S1, +S2 - GI/Abdominal Exam GI & Abdominal Exam: Soft, Normal Bowel Sounds. absent: Guarding, Rebound - Extremities Exam Extremities Exam: Normal Inspection - Back Exam Back Exam: NORMAL INSPECTION. absent: CVA tenderness (L), CVA tenderness (R) - Neurological Exam Neurological Exam: Alert, Awake, Oriented x3 - Psychiatric Exam Psychiatric exam: Normal Affect, Normal Mood - Skin Skin Exam: Dry, Intact, Normal Color, Warm Assessment and Plan - Assessment and Plan (Free Text) Assessment: 52 year old male with a past medical history of TBI, alcohol abuse, seizures, disinhibition, who presented [place] [facility] [place] and has been confused, agitated, and delirious. Psychiatry and neurology are on board. He has rhabdomyolysis secondary to his seizure and is being given IV fluids. He is on different level of restraints depending on how violent, disruptive, or combative he gets. As of 10/18/17 patient is more cooperative and restraints were removed. He is awaiting EEG. Plan: 1) Epilepsy and agitation in a patient with history of TBI and alcohol abuse - - Trileptal 450 mg BID (Unverified) - Thorazine 10 mg BID - Ativan 2 mg PO q4h [facility] - Ativan 1 mg IVP PRN q6h - Benadryl 50 mg q8h PRN for agitation - Neurology recommendations appreciated - Psychiatry recommendations appreciated 2) Malnutrition and history of alcoholism on AED - Folic acid, thiamine 3) Elevated blood pressure - Amlodipine 5 mg - Clonidine 0.1 mg BID 4) Rhabdomyolysis secondary to seizures - CPK beginning to trend down from 42,826 to 12,000 today; will continue to monitor - NS switched to 200 ml/hr - Condom catheter placed to monitor strict I/O 5) Elevated LFTs secondary to alcohol abuse and possible drug induced: rule out pancreatitis - Will continue to trend and avoid hepatotoxins - LFTs remain unchanged with T.bili 1.3, AST 289, and ALT 119 - Protonix discontinued, pepcid 20 mg HS instead - Seroquel and depakote discontinued per psychiatry - Amlyase and lipase negative 6) Thrombocytopenia, multifactorial in a patient with testicular cancer treated with chemoradiation and surgery. - Hematology consult appreciated, HIT assay, serotinin release assay. - Further recommend CT chest/abdomen/pelvis to assess for metastatic lesions. - Peripheral smear reveals reduced white blood cells and reduced platelets without evidence of rouleoux formation or large sized platelets Case reviewed and discussed with Dr. Iglesias. <Titi Iglesias - Last Filed: 10/18/17 16:22> Objective - Vital Signs/Intake and Output Vital Signs (last 24 hours): Temp Pulse Resp BP Pulse Ox 98.6 F 91 H 19 162/100 H 96 10/18/17 12:00 10/18/17 14:00 10/18/17 12:00 10/18/17 12:21 10/18/17 06:00 Intake and Output: 10/18/17 10/18/17 06:59 18:59 Intake Total 4080 900 Output Total 1700 2250 Balance 2380 -1350 - Medications Medications: Current Medications Amlodipine Besylate (Norvasc) 5 mg PO DAILY [facility] Last Admin: 10/18/17 12:21 Dose: 5 mg Chlorpromazine (Thorazine) 10 mg PO BID [facility] PRN Reason: Protocol Last Admin: 10/18/17 12:23 Dose: 10 mg Clonidine HCl (Catapres) 0.1 mg PO BID PRN PRN Reason: Systolic Blood Pressure Diphenhydramine HCl (Benadryl) 50 mg IVP Q8H PRN PRN Reason: Agitation Last Admin: 10/17/17 05:51 Dose: 50 mg Famotidine (Pepcid) 20 mg PO HS [facility] Last Admin: 10/17/17 21:41 Dose: 20 mg Folic Acid (Folic Acid) 1 mg PO DAILY [facility] Last Admin: 10/18/17 12:21 Dose: 1 mg Sodium Chloride (Sodium Chloride 0.9%) 1,000 mls @ 200 mls/hr IV .Q5H [facility] Last Admin: 10/18/17 14:07 Dose: 200 mls/hr Insulin Human Regular (Humulin R Low) 0 units SC ACHS [facility] PRN Reason: Protocol Last Admin: 10/18/17 12:24 Dose: Not Given Lorazepam (Ativan) 1 mg IVP Q6H PRN; Protocol PRN Reason: Agitation Last Admin: 10/18/17 01:33 Dose: 1 mg Lorazepam (Ativan) 2 mg PO Q4 [facility] PRN Reason: Protocol Last Admin: 10/18/17 12:20 Dose: 2 mg Nicotine (Nicoderm Cq) 1 patch TD DAILY [facility] Last Admin: 10/18/17 10:46 Dose: 1 patch Oxcarbazepine (Trileptal) 450 mg PO BID [facility] PRN Reason: Protocol Thiamine HCl (Vitamin B1 Tab) 100 mg PO DAILY [facility] Last Admin: 10/18/17 12:22 Dose: 100 mg - Labs Labs: 10/18/17 08:00 10/18/17 08:00 Attending/Attestation - Attestation I have personally seen and examined this patient.: Yes I have fully participated in the care of the patient.: Yes I have reviewed all pertinent clinical information, including history, physical exam and plan: Yes Notes (Text): 10/18/17 16:20 52 year old male with past medical history of TBI, alcohol abuse, seizure disorder and hypertension who presented with altered mental status and seizures. He was found to have rhabdomyolysis, elevated LFTs and delirium. He is being followed by neurology and psychiatry. EEG is still pending. Continue with IVF for rhabdomyolysis. CPK is now beginning to improve so we can decrease fluids today. Transaminitis is likely multifactorial secondary to ETOH abuse and medications and also improving. Depakote and seroquel were discontinued. Continue with trileptal as per neurology. Continue to monitor LFTs closely. Psychiatry is following patient. He is currently on thorazine. He is on ativan roland/prn for agitation and withdrawal symptoms. He is more alert and cooperative today at least during my time of examination. Case was discussed with psychiatry today. Discussed with nursing staff to monitor off restraints while continuing 1:1 observation for now. He also has thrombocytopenia for which hematology is following and ordered for CT chest/abd/pelvis. He was counselled on alcohol abstinence. Continue with multivitamin, folic acid and thiamine. Titi Iglesias MD Hospitalist.
[2017-10-18 08:18] LABS: BASO # 0.01 K/mm3 (0.0-2.0); BASO % 0.3 % (0.0-3.0); EOS # 0.1 (0.0-0.7); EOS % 3.7 % (1.5-5.0); GRAN # 1.62 (1.4-6.5); GRAN % 54.2 % (50.0-68.0); HEMOGLOBIN 12.7 g/dL (14.0-18.0); LYMPH # 0.8 (1.2-3.4); LYMPH % 26.4 % (22.0-35.0); MEAN CELL VOLUME 96.3 fl (80.0-105.0); MEAN CORPUSCULAR HEMOGLOBIN 33.6 pg (25.0-35.0); MEAN CORPUSCULAR HGB CONC 34.9 g/dl (31.0-37.0); MEAN PLATELET VOLUME 11.7 fl (7.0-11.0); MONO # 0.5 (0.1-0.6); MONO % 15.4 % (1.0-6.0); RBC 3.78 10^6/uL (3.5-6.1); RED CELL DISTRIBUTION WIDTH 13.3 % (11.5-14.5)
[2017-10-18 08:30] LABS: ALB/GLOB RATIO 1.3 (1.1-1.8); ALBUMIN 3.4 g/dL (3.0-4.8); ALT/SGPT 119 U/L (7-56); AST/SGOT 289 U/L (17-59); BLOOD UREA NITROGEN 3 mg/dL (7-21); CALCIUM 8.4 mg/dL (8.4-10.5); GFR AFRICAN-AMERICAN > 60; GFR NON-AFRICAN AMERICAN > 60
[2017-10-18 08:53] LABS: CK-MB 1.1 ng/mL (0.0-3.6)
[2017-10-18] MEDS ORDERED: Potassium Chloride 20 mEq ER Tab PO ONE (10:29)
--- NOTE | 2017-10-18 12:20 | CP.PCM.PN ---
Subjective - Date & Time of Evaluation Date of Evaluation: 10/18/17 Time of Evaluation: 12:20 - Subjective Subjective: Mr. Bernal was seen and examined at the bedside. He is more alert, but with episode of confusion. He is able to verbalize person ( [place]), but confused to time (2006), and place ( [facility]). He was able to verbalize his zipcode with street address including his apartment number. He was able to follow simple commands, but towards the end of assessment he has some hallucinations, but provided the right information, he corrects himself. He remains with bilateral wrist restraints. He had an episode of agitation/ combativeness last night which he was medicated. He was not able to pull his heplock and IVF is infusing well. According to the sister, he refused to eat today, advise the sitter to keep on offering to the patient. He is on 1;1 sitter for patient safety. Objective - Vital Signs/Intake and Output Vital Signs (last 24 hours): Temp Pulse Resp BP Pulse Ox 97.9 F 70 20 150/80 96 10/18/17 06:00 10/18/17 10:00 10/18/17 06:00 10/18/17 08:00 10/18/17 06:00 Intake and Output: 10/18/17 10/18/17 06:59 18:59 Intake Total 4080 Output Total 1700 Balance 2380 - Medications Medications: Current Medications Amlodipine Besylate (Norvasc) 5 mg PO DAILY [facility] Last Admin: 10/17/17 09:44 Dose: 5 mg Chlorpromazine (Thorazine) 10 mg PO BID [facility] PRN Reason: Protocol Clonidine HCl (Catapres) 0.1 mg PO BID PRN PRN Reason: Systolic Blood Pressure Diphenhydramine HCl (Benadryl) 50 mg IVP Q8H PRN PRN Reason: Agitation Last Admin: 10/17/17 05:51 Dose: 50 mg Famotidine (Pepcid) 20 mg PO HS [facility] Last Admin: 10/17/17 21:41 Dose: 20 mg Folic Acid (Folic Acid) 1 mg PO DAILY [facility] Last Admin: 10/17/17 09:45 Dose: 1 mg Sodium Chloride (Sodium Chloride 0.9%) 1,000 mls @ 300 mls/hr IV .Q3H20M [facility] Last Admin: 10/18/17 10:46 Dose: 300 mls/hr Insulin Human Regular (Humulin R Low) 0 units SC ACHS [facility] PRN Reason: Protocol Last Admin: 10/18/17 07:30 Dose: Not Given Lorazepam (Ativan) 1 mg IVP Q6H PRN; Protocol PRN Reason: Agitation Last Admin: 10/18/17 01:33 Dose: 1 mg Lorazepam (Ativan) 2 mg PO Q4 [facility] PRN Reason: Protocol Nicotine (Nicoderm Cq) 1 patch TD DAILY [facility] Last Admin: 10/18/17 10:46 Dose: 1 patch Oxcarbazepine (Trileptal) 450 mg PO BID [facility] PRN Reason: Protocol Thiamine HCl (Vitamin B1 Tab) 100 mg PO DAILY [facility] Last Admin: 10/17/17 09:44 Dose: 100 mg - Labs Labs: 10/18/17 08:00 10/18/17 08:00 - Constitutional Appears: No Acute Distress - Head Exam Head Exam: NORMAL INSPECTION - Neurological Exam Neurological Exam: Awake Neuro motor strength exam: Left Upper Extremity: 5, Right Upper Extremity: 5, Left Lower Extremity: 5, Right Lower Extremity: 5 Additional comments: Neurological unchanged from previous examination. Assessment and Plan (1) Seizure Assessment & Plan: Case discussed with Dr. Hodge, continue all current medical regimen.Pending EEG due to his behavior. Recommend supportive care. Status: Acute
[2017-10-18] MEDS ORDERED: Barium Sulfate Susp 2.1% w/v, 2.0% w/w 450 mL Bottle PO ONE (14:20)
--- NOTE | 2017-10-18 14:20 | CP.PCM.PN ---
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 Heme-onc was consulted for thrombocytopenia and concern for HIT. Today, patient remains restrained, but is not overtly aggressive or agitated. Overnight, patient continued to have intermittent agitation/hallucinations. This AM, oriented x2 (self and location, not to year). Denies chest pain, shortness of breath, emesis. Objective - Vital Signs/Intake and Output Vital Signs (last 24 hours): Temp Pulse Resp BP Pulse Ox 98.6 F 91 H 19 162/100 H 96 10/18/17 12:00 10/18/17 12:21 10/18/17 12:00 10/18/17 12:21 10/18/17 06:00 Intake and Output: 10/18/17 10/18/17 06:59 18:59 Intake Total 4080 300 Output Total 1700 Balance 2380 300 - Medications Medications: Current Medications Amlodipine Besylate (Norvasc) 5 mg PO DAILY [facility] Last Admin: 10/18/17 12:21 Dose: 5 mg Chlorpromazine (Thorazine) 10 mg PO BID [facility] PRN Reason: Protocol Last Admin: 10/18/17 12:23 Dose: 10 mg Clonidine HCl (Catapres) 0.1 mg PO BID PRN PRN Reason: Systolic Blood Pressure Diphenhydramine HCl (Benadryl) 50 mg IVP Q8H PRN PRN Reason: Agitation Last Admin: 10/17/17 05:51 Dose: 50 mg Famotidine (Pepcid) 20 mg PO HS [facility] Last Admin: 10/17/17 21:41 Dose: 20 mg Folic Acid (Folic Acid) 1 mg PO DAILY [facility] Last Admin: 10/18/17 12:21 Dose: 1 mg Sodium Chloride (Sodium Chloride 0.9%) 1,000 mls @ 200 mls/hr IV .Q5H [facility] Insulin Human Regular (Humulin R Low) 0 units SC ACHS [facility] PRN Reason: Protocol Last Admin: 10/18/17 12:24 Dose: Not Given Lorazepam (Ativan) 1 mg IVP Q6H PRN; Protocol PRN Reason: Agitation Last Admin: 10/18/17 01:33 Dose: 1 mg Lorazepam (Ativan) 2 mg PO Q4 [facility] PRN Reason: Protocol Last Admin: 10/18/17 12:20 Dose: 2 mg Nicotine (Nicoderm Cq) 1 patch TD DAILY [facility] Last Admin: 10/18/17 10:46 Dose: 1 patch Oxcarbazepine (Trileptal) 450 mg PO BID [facility] PRN Reason: Protocol Thiamine HCl (Vitamin B1 Tab) 100 mg PO DAILY [facility] Last Admin: 10/18/17 12:22 Dose: 100 mg - Labs Labs: 10/18/17 08:00 10/18/17 08:00 - Additional Findings Additional findings: - Constitutional Appears: Non-toxic, No Acute Distress, Unkempt, bilateral UE restraints - Head Exam Head Exam: ATRAUMATIC, NORMAL INSPECTION, NORMOCEPHALIC - Eye Exam Eye Exam: EOMI, Normal appearance. absent: Conjunctival injection, Scleral icterus Pupil Exam: absent: Irregular, Unequal - ENT Exam ENT Exam: Mucous Membranes Moist - Neck Exam Neck exam: Positive for: Full Rom, Normal Inspection - Respiratory Exam Respiratory Exam: Decreased Breath Sounds (mildly decreased breath sounds in all breaux, otherwise CTAB), Clear to Auscultation Bilateral, NORMAL BREATHING PATTERN. absent: Accessory Muscle Use, Chest Wall Tenderness, Rales, Rhonchi, Wheezes - Cardiovascular Exam Cardiovascular Exam: REGULAR RHYTHM, RRR, +S1, +S2. absent: Bradycardia, Tachycardia, Irregular Rhythm, JVD, +S4 - GI/Abdominal Exam GI & Abdominal Exam: Normal Bowel Sounds, Hepatosplenomegaly (spleen palpable laterally from left flank), Soft. absent: Distended, Firm, Rigid, Tenderness - Extremities Exam Extremities exam: Positive for: normal inspection. Negative for: calf tenderness, pedal edema, tenderness Additional comments: scattered echymosis and two small scabs along anterior portion of bilateral LE in various states of healing - Neurological Exam Additional comments: awake and alert, oriented to self and location, not oriented to year moving bilateral LE spontaneously, attempting to move bilateral UE but unable 2/ 2 restraints - Psychiatric Exam Psychiatric exam: Normal Affect, Normal Mood - Skin Skin Exam: Dry, Intact (except as noted in extremities exam), Normal Color, Warm Assessment and Plan - Assessment and Plan (Free Text) Assessment: This is a 52 y/o Male with pmh of 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 Heme-onc was consulted for thrombocytopenia and concern for HIT. Plan: Metastatic testicular ca s/p surgery/chemo/radiation EtOH abuse Tobacco abuse HTN Hx traumatic ICH Seizure disorder Thrombocytopenia - stable Leukopenia - stable Elevated LFTs Rhabdo - improved -Thrombocytopenia from 119 to 41, acute 50% drop from day of admission to second hospital day (119 -> 62), 54 today -leukopenia holding stable (was 4.3, now 3.2), 3.2 today -Unclear when last hospitalization was, so unclear if recently sensitized to Heparin, but rapidly of thrombocytopenia less suggestive of HIT otherwise, will obtain HIT panel with serotonin assay to definitively r/o -On multiple medications that can cause thrombocytopenia, can consider switching protonix to pepcid, however needs to be on his antiepileptics due to seizure disorder and hx of ICH 2/2 seizures; EtOH hx also likely contributory, and depending on what chemo and radiation regimen he underwent for his cancer, may also have contributory effect -Neuro following, appreciate their input; defer to neuro for appropriate anti- epileptic medications in setting of thrombocytopenia and elevated LFTs -LFT elevations likely alcoholic hepatitis vs medication-induced -still pending CT chest/abd/pelvis to assess for mets, CT head already obtained and is negative -No signs of active bleeding at this time, hemodynamically stable, and not pending any procedures, so will continue to monitor platelets for now, no need to transfuse at this time Patient reviewed and discussed at length with attending, Dr. Key
--- NOTE | 2017-10-18 15:28 | PN ---
DATE: FOLLOWUP NOTE SUBJECTIVE: The patient is a 52-year-old white male with a reported history of alcohol use disorder, history of alcohol withdrawal delirium and agitation. The patient has history of traumatic brain injury and medical history significant for testicular cancer, status post chemoradiation and surgery. Psych consult was involved into the patient's care because patient has history of agitated behavior and the patient was in delirium stage. The patient does not have a formal psychiatric history, but each time when the patient has delirium stage, psychiatric team is involved. The patient was seen by multiple psychiatrists in the past including Dr. Jacobs in 2012. The patient was presenting similarly as now. The patient was seen by Dr. Cisse in 01/2014. The patient was discharged on Depakote, Ativan, and Seroquel. The patient was seen and examined today. Previous history reviewed. The patient was seen and examined. The patient appears to be calmer to compare with the previous days. The patient still has soft restraints of upper extremities because the patient has tendency of pulling IV line and trying to climb off the bed. The patient is confused. The patient does not know where he is. At the same time, the patient had difficulty to find right words. The patient also had visual hallucinations overnight. Patient is currently on one-to-one. There is no meaningful conversation possible. The patient said that he lives with his family with brothers and sister. The patient gave permission to talk to Marilyn, phone number is [phone]. Patient's sister was contacted. Patient's sister, Frida Salter said patient's baseline is sometimes patient has difficulty to find words and at times confabulates due to his traumatic brain injury, but patient is not confused and not hallucinating. Patient's sister reported that the patient would drink 48 hours before coming to the to the hospital, was his last drink. Patient has history of alcohol use disorder, although patient's sister is not sure if the patient was compliant with the medications before. Patient's last seizure was in 05/2017. The patient still reported that the patient filled the medication [facility] and the patient was on benzodiazepines prior to coming to the hospital. Urine drug screen was positive for benzodiazepines, cannabis at the time of admission. Valproic acid was 1140 and alcohol was less than 10. CPK was elevated. AST and ALT elevated. This sports book writer would like to emphasize ASTs elevated, which most likely related to alcohol use disorder and alcoholic hepatitis. Vital signs reviewed. Temperature 97.9, pulse is 70, blood pressure 150/80, respirations 20, oxygen saturation is 96%. Medications reviewed. MENTAL STATUS EXAMINATION: As this sports book writer described above, the patient appears to be confused, at times difficult to find words. Patient has hallucinations overnight, intermittent eye contact. Speech was disorganized. Mood: The patient was not able to express how he feels today. Affect flat. Thought process seems to be confabulations and circumstantial thought content, visual hallucinations which give this sports book writer impression that most likely the patient is still on delirium stage. Insight and judgment impaired. Impulses are unpredictable. IMPRESSION Most likely multifactorial delirium. The patient also has traumatic brain injury and the patient's baseline is patient would have difficulty to find word, but patient would be not confused. The patient has alcohol use disorder. This sports book writer cannot exclude that less likely the patient had alcohol withdrawal delirium. PLAN Continue current management. Continue current medications. Risperdal and Seroquel were discontinued. Ativan was increased to 2 mg four hours as scheduled. Collaterals from patient's sister appreciated. vice president of procurement was advised to call to [facility] and confirm medication if the patient was on higher dose of benzodiazepines and was drinking alcohol, most likely the patient has alcohol withdrawal delirium. Please continue one-to-one. Out of bed is recommended. Try to discontinue soft restraint. We will follow up and advise accordingly. Thank you very much for letting me participate in the care of your patient. Myah Philippe MD
[2017-10-19] MEDS: Sodium Chloride 0.9% 1,000 ML IV SCH ×3 (00:30→05:44)
[2017-10-19] MEDS: Insulin Reg-LOW-Coverage SC SCH ×4 (08:37→22:17)
--- NOTE | 2017-10-19 09:39 | CT ---
PROCEDURE: CT Chest, Abdomen and Pelvis without intravenous contrast HISTORY: assess for metastasis, per Hem/onc COMPARISON: 07/20/2012 ct abdomen and pelvis TECHNIQUE: Radiation dose: Total exam DLP = 2464.29 mGy-cm. This CT exam was performed using one or more of the following dose reduction techniques: Automated exposure control, adjustment of the mA and/or kV according to patient size, and/or use of iterative reconstruction technique. FINDINGS: CT CHEST WITHOUT CONTRAST: LUNGS: Clear. No nodule, mass or consolidation. MEDIASTINUM: Unremarkable. Normal caliber aorta and pulmonary arterial trunk. Normal size heart. LYMPH NODES: Unremarkable. PLEURA: Unremarkable. No pneumothorax. No pleural fluid. BONES: Unremarkable. OTHER FINDINGS: None. CT ABDOMEN AND PELVIS: LIVER: Hepatomegaly, hepatic steatosis without focal abnormality GALLBLADDER AND BILE DUCTS: Unremarkable. PANCREAS: Unremarkable. No gross lesion or ductal dilatation. SPLEEN: Unremarkable. ADRENALS: Unremarkable. No mass. KIDNEYS AND URETERS: Unremarkable. No hydronephrosis. No solid mass. VASCULATURE: Unremarkable. No aortic aneurysm. BOWEL: Unremarkable. No obstruction. No gross mural thickening. APPENDIX: Normal appendix. PERITONEUM: Unremarkable. No free fluid. No free air. LYMPH NODES: Unremarkable. No enlarged lymph nodes. BLADDER: Unremarkable. REPRODUCTIVE: Unremarkable. BONES: No acute fracture. OTHER FINDINGS: None. IMPRESSION: CT thorax: No significant or acute findings to account for/ related to the clinical presentation. CT abdomen retroperitoneum and pelvis: Hepatomegaly, hepatic steatosis. No significant findings in the abdomen, retroperitoneum or pelvis. No interval change compared to the prior study. Concordant results (preliminary interpretation) provided by [facility]. Procedure Completed: 18:37 Preliminary ([facility]) Report: Dictated and Authenticated: 19:38 Final Interpretation: 09:32 October 19, 2017.
[2017-10-19] MEDS: Multivitamin Therapeutic Tab PO SCH (10:22)
[2017-10-19 11:59] LABS: BASO # 0.01 K/mm3 (0.0-2.0); BASO % 0.3 % (0.0-3.0); EOS # 0.1 (0.0-0.7); EOS % 2.7 % (1.5-5.0); GRAN # 1.92 (1.4-6.5); LYMPH # 0.8 (1.2-3.4); LYMPH % 24.9 % (22.0-35.0); MEAN CELL VOLUME 97.1 fl (80.0-105.0); MONO # 0.5 (0.1-0.6); MONO % 15.1 % (1.0-6.0); RBC 3.82 10^6/uL (3.5-6.1); RED CELL DISTRIBUTION WIDTH 13.2 % (11.5-14.5); WHITE BLOOD COUNT 3.4 10^3/ul (4.5-11.0)
[2017-10-19 12:23] LABS: ALB/GLOB RATIO 1.3 (1.1-1.8); ALBUMIN 3.6 g/dL (3.0-4.8); ALT/SGPT 106 U/L (7-56); AST/SGOT 160 U/L (17-59); BLOOD UREA NITROGEN 3 mg/dL (7-21); CALCIUM 9.5 mg/dL (8.4-10.5)
[2017-10-19] MEDS ORDERED: Sodium Chloride 0.9% 1,000 ML IV SCH (12:41)
[2017-10-19 12:57] LABS: CK-MB 0.5 ng/mL (0.0-3.6); GFR AFRICAN-AMERICAN > 60; GFR NON-AFRICAN AMERICAN > 60
--- NOTE | 2017-10-19 17:04 | CP.PCM.PN ---
<Galo Youngkayleejuan j - Last Filed: 10/19/17 16:59> Subjective - Date & Time of Evaluation Date of Evaluation: 10/19/17 Time of Evaluation: 07:30 - Subjective Subjective: Jerel Young DO PGY1 - IM Progress Note Patient seen and examined at bedside. Per nursing staff, no acute events overnight. Patient is off restraints since yesterday, approximately noon. Patient complaining of diffuse body aches. He denies chest pain, shortness of breath, abdominal pain, fever, chills, nausea, vomiting, diarrhea, constipation. Objective - Vital Signs/Intake and Output Vital Signs (last 24 hours): Temp Pulse Resp BP Pulse Ox 99 F 93 H 20 149/89 96 10/19/17 12:00 10/19/17 12:00 10/19/17 12:00 10/19/17 12:00 10/19/17 06:00 Intake and Output: 10/19/17 10/19/17 06:59 18:59 Intake Total 2400 Balance 2400 - Medications Medications: Current Medications Amlodipine Besylate (Norvasc) 5 mg PO DAILY [facility] Last Admin: 10/19/17 10:22 Dose: 5 mg Chlorpromazine (Thorazine) 10 mg PO BID [facility] PRN Reason: Protocol Last Admin: 10/19/17 10:22 Dose: 10 mg Clonidine HCl (Catapres) 0.1 mg PO BID PRN PRN Reason: Systolic Blood Pressure Diphenhydramine HCl (Benadryl) 50 mg IVP Q8H PRN PRN Reason: Agitation Last Admin: 10/17/17 05:51 Dose: 50 mg Famotidine (Pepcid) 20 mg PO HS [facility] Last Admin: 10/18/17 21:25 Dose: 20 mg Folic Acid (Folic Acid) 1 mg PO DAILY [facility] Last Admin: 10/19/17 10:22 Dose: 1 mg Sodium Chloride (Sodium Chloride 0.9%) 1,000 mls @ 100 mls/hr IV .Q10H [facility] Last Admin: 10/19/17 13:00 Dose: 100 mls/hr Insulin Human Regular (Humulin R Low) 0 units SC ACHS [facility] PRN Reason: Protocol Last Admin: 10/19/17 11:33 Dose: Not Given Lorazepam (Ativan) 1 mg IVP Q6H PRN; Protocol PRN Reason: Agitation Last Admin: 10/18/17 01:33 Dose: 1 mg Lorazepam (Ativan) 2 mg PO Q4 [facility] PRN Reason: Protocol Last Admin: 10/19/17 15:04 Dose: 2 mg Multivitamins (Thera Tab) 1 tab PO 0800 [facility] Last Admin: 10/19/17 10:22 Dose: 1 tab Nicotine (Nicoderm Cq) 1 patch TD DAILY [facility] Last Admin: 10/19/17 10:22 Dose: 1 patch Oxcarbazepine (Trileptal) 450 mg PO BID [facility] PRN Reason: Protocol Last Admin: 10/19/17 11:36 Dose: 450 mg Thiamine HCl (Vitamin B1 Tab) 100 mg PO DAILY [facility] Last Admin: 10/19/17 10:21 Dose: 100 mg - Labs Labs: 10/19/17 11:45 10/19/17 11:45 - Additional Findings Additional findings: - Constitutional Appears: Non-toxic, No Acute Distress - Head Exam Head Exam: ATRAUMATIC, NORMOCEPHALIC - Eye Exam Eye Exam: EOMI, Normal appearance - ENT Exam ENT Exam: Mucous Membranes Moist, Normal Oropharynx - Neck Exam Neck Exam: Normal Inspection - Respiratory Exam Respiratory Exam: Clear to Ausculation Bilateral, NORMAL BREATHING PATTERN. absent: Accessory Muscle Use - Cardiovascular Exam Cardiovascular Exam: RRR, +S1, +S2 - GI/Abdominal Exam GI & Abdominal Exam: Soft, Normal Bowel Sounds. absent: Guarding, Rebound - Extremities Exam Extremities Exam: Normal Inspection - Back Exam Back Exam: NORMAL INSPECTION. absent: CVA tenderness (L), CVA tenderness (R) - Neurological Exam Neurological Exam: Alert, Awake, Oriented to person and time; is able to say [facility], and knows he is not at home, unable to report that he is in a hospital - Psychiatric Exam Psychiatric exam: Normal Affect, Normal Mood - Skin Skin Exam: Dry, Intact, Normal Color, Warm Assessment and Plan - Assessment and Plan (Free Text) Assessment: 52 year old male with a past medical history of TBI, alcohol abuse, seizures, disinhibition, who presented to [facility] for seizures via EMS and has been confused, agitated, and delirious. Psychiatry and neurology are on board. He has rhabdomyolysis secondary to his seizure and is being given IV fluids. He is on different level of restraints depending on how violent, disruptive, or combative he gets. As of 10/18/17 patient is more cooperative and restraints were removed. He is awaiting EEG. Plan: 1) Epilepsy and agitation in a patient with history of TBI and alcohol abuse - Trileptal 450 mg BID - Thorazine 10 mg BID - Ativan 2 mg PO q4h [facility] - Ativan 1 mg IVP PRN q6h - Benadryl 50 mg q8h PRN for agitation - Neurology recommendations appreciated - Psychiatry recommendations appreciated - Will discuss with psychiatry regarding discharge planning and discontinuing 1: 1 2) Malnutrition and history of alcoholism on AED - Folic acid, thiamine 3) Elevated blood pressure - Amlodipine 5 mg - Clonidine 0.1 mg BID PRN 4) Rhabdomyolysis secondary to seizures - CPK continues to trend down - Decreased NS to 100cc/hr - Strict I/O 5) Elevated LFTs secondary to alcohol abuse and possible drug induced - Enlarged liver with hepatic steatosis noted on CT scan - Trending down - Avoid hepatotoxins - Continue to monitor 6) Thrombocytopenia, multifactorial in a patient with testicular cancer treated with chemoradiation and surgery. - Hematology consult appreciated, HIT assay, serotinin release assay. - Patient had CT C/A/P for history of metastatic testicular cancer; significant to hepatic steatosis - Peripheral smear reveals reduced white blood cells and reduced platelets without evidence of rouleoux formation or large sized platelets Case reviewed and discussed with Dr. Iglesias. <Titi Iglesias - Last Filed: 10/20/17 07:01> Objective - Vital Signs/Intake and Output Vital Signs (last 24 hours): Temp Pulse Resp BP Pulse Ox 97.7 F 76 20 160/102 H 97 10/20/17 06:00 10/20/17 06:00 10/20/17 06:00 10/20/17 06:00 10/20/17 06:00 Intake and Output: 10/20/17 10/20/17 06:59 18:59 Intake Total 2760 Output Total 2000 Balance 760 - Medications Medications: Current Medications Amlodipine Besylate (Norvasc) 5 mg PO DAILY [facility] Last Admin: 10/19/17 10:22 Dose: 5 mg Chlorpromazine (Thorazine) 10 mg PO BID [facility] PRN Reason: Protocol Last Admin: 10/19/17 17:39 Dose: 10 mg Clonidine HCl (Catapres) 0.1 mg PO BID PRN PRN Reason: Systolic Blood Pressure Diphenhydramine HCl (Benadryl) 50 mg IVP Q8H PRN PRN Reason: Agitation Last Admin: 10/17/17 05:51 Dose: 50 mg Famotidine (Pepcid) 20 mg PO HS [facility] Last Admin: 10/19/17 22:09 Dose: 20 mg Folic Acid (Folic Acid) 1 mg PO DAILY [facility] Last Admin: 10/19/17 10:22 Dose: 1 mg Sodium Chloride (Sodium Chloride 0.9%) 1,000 mls @ 100 mls/hr IV .Q10H [facility] Last Admin: 10/19/17 13:00 Dose: 100 mls/hr Insulin Human Regular (Humulin R Low) 0 units SC ACHS [facility] PRN Reason: Protocol Last Admin: 10/19/17 22:17 Dose: Not Given Lorazepam (Ativan) 1 mg IVP Q6H PRN; Protocol PRN Reason: Agitation Last Admin: 10/18/17 01:33 Dose: 1 mg Lorazepam (Ativan) 2 mg PO Q4 [facility] PRN Reason: Protocol Last Admin: 10/20/17 05:21 Dose: 2 mg Multivitamins (Thera Tab) 1 tab PO 0800 [facility] Last Admin: 10/19/17 10:22 Dose: 1 tab Nicotine (Nicoderm Cq) 1 patch TD DAILY [facility] Last Admin: 10/19/17 10:22 Dose: 1 patch Oxcarbazepine (Trileptal) 450 mg PO BID [facility] PRN Reason: Protocol Last Admin: 10/19/17 18:02 Dose: 450 mg Thiamine HCl (Vitamin B1 Tab) 100 mg PO DAILY [facility] Last Admin: 10/19/17 10:21 Dose: 100 mg - Labs Labs: 10/19/17 11:45 10/19/17 11:45 Attending/Attestation - Attestation I have personally seen and examined this patient.: Yes I have fully participated in the care of the patient.: Yes I have reviewed all pertinent clinical information, including history, physical exam and plan: Yes Notes (Text): 10/19/17 52 year old male with past medical history of TBI, alcohol abuse, seizure disorder and hypertension who presented with altered mental status and seizures. He was found to have rhabdomyolysis, elevated LFTs and delirium. He is being followed by neurology and psychiatry. EEG is still pending. Continue with IVF for rhabdomyolysis. CPK is improving. Will decrease IVF to 100 ml/hr. Transaminitis is likely multifactorial secondary to ETOH abuse and medications and also improving. Depakote and seroquel were discontinued. Continue with trileptal as per neurology. Continue to monitor LFTs closely. Psychiatry is following patient. He is currently on thorazine. He is on ativan henry/prn for agitation and withdrawal symptoms. He has been more cooperative and alert today. Will request for PT follow up. He also has thrombocytopenia for which hematology is following. CT chest/abdomen/pelvis was reviewed as above. He was counselled on alcohol abstinence. Continue with multivitamin, folic acid and thiamine. Titi Iglesias MD Hospitalist.
--- NOTE | 2017-10-19 18:24 | PN ---
DATE: 10/19/2017 SUBJECTIVE: The patient was followed up today. The patient presented much calmer. The patient is off restraint. The patient is still on one-to-one. AST and ALT are trending down. As per report, the patient is less confused. There is no agitation or aggression. This senior grant writer talked to the patient. The patient still appears to be a little bit confused. The patient said "life is confusing itself." The patient denied hearing voices, denied seeing things. The patient denied being depressed. Denied thoughts of harming himself or others. As per one-to-one's report, the patient does not exhibit any aggressive or agitated behavior. MEDICATIONS: Reviewed. The patient is on Thorazine 10 mg twice a day scheduled, Catapres, Benadryl, Pepcid, folic acid, Humulin, Ativan 1 mg IV push every 6 hours p.r.n. and 2 mg p.o. every 4 hours scheduled, multivitamins, thiamine, folic acid, Nicoderm, oxcarbazepine, IV hydration also. LABORATORY DATA: Reviewed. WBCs are 3.4, hemoglobin 13, hematocrit 37.1. Chemistry reviewed. AST and ALT 160 and 106, to compare with the previous day's which was about 600 and 300, is much better. Total creatine kinase is trending down as well. MENTAL STATUS EXAMINATION: The patient appears to be sleepy, easily arousable, intermittent eye contact. The patient reported to feel "tired and sore." Affect flat. Thought process seems to be concrete. Thought content, the patient denied visual, auditory, or tactile hallucinations. Denied paranoid ideation. The patient appears to be mildly disorganized. The patient also has traumatic brain injury. Some times, the patient has difficulty to find right words. Insight and judgment seem to be improving. Impulses are better controlled. IMPRESSION Most likely, the patient was in delirium stage, which seems to be multifactorial. The patient has history of traumatic brain injury and mood spectrum disorder as well as alcohol use disorder. PLAN This senior grant writer discussed the plan in details with the patient's sister. The patient gave permission to talk to her. Discussed case with Dr. Iglesias. The patient seems to be improving. Physical therapy evaluation recommended, out of bed recommended. The patient is off wrist restraint. The patient to continue being on one-to-one for at least 24 hours in order to make sure that the patient has stable improvement. Thorazine needs to be continued. Ativan should be continued at the same dose for at least 24 hours. Then, we will start tapering that down not more than 15% to 20% a day. Should continue the multivitamins, thiamine, and folic acid. Should you have any questions, give me a call back. We will follow up and advise accordingly. Myah Philippe MD
--- NOTE | 2017-10-20 05:56 | CP.PCM.PN ---
Subjective - Date & Time of Evaluation Date of Evaluation: 10/20/17 Time of Evaluation: 05:54 - Subjective Subjective: Mr. Bernal was seen and examined at the bedside. He is alert, oriented x 3. He denies any headache, dizziness, lightheadedness, blurred vision, diplopia, nausea, or vomiting. He is able to participate in a pleasant conversation. He follows commands. He remains on 1:1 sitter for patient safety.There was no untoward events overnight. Objective - Vital Signs/Intake and Output Vital Signs (last 24 hours): Temp Pulse Resp BP Pulse Ox 97.3 F L 81 20 164/101 H 97 10/20/17 00:01 10/20/17 00:01 10/20/17 00:01 10/20/17 00:01 10/20/17 00:01 Intake and Output: 10/19/17 10/20/17 18:59 06:59 Intake Total 360 Output Total 2000 Balance -1640 - Medications Medications: Current Medications Amlodipine Besylate (Norvasc) 5 mg PO DAILY [facility] Last Admin: 10/19/17 10:22 Dose: 5 mg Chlorpromazine (Thorazine) 10 mg PO BID [facility] PRN Reason: Protocol Last Admin: 10/19/17 17:39 Dose: 10 mg Clonidine HCl (Catapres) 0.1 mg PO BID PRN PRN Reason: Systolic Blood Pressure Diphenhydramine HCl (Benadryl) 50 mg IVP Q8H PRN PRN Reason: Agitation Last Admin: 10/17/17 05:51 Dose: 50 mg Famotidine (Pepcid) 20 mg PO HS [facility] Last Admin: 10/19/17 22:09 Dose: 20 mg Folic Acid (Folic Acid) 1 mg PO DAILY [facility] Last Admin: 10/19/17 10:22 Dose: 1 mg Sodium Chloride (Sodium Chloride 0.9%) 1,000 mls @ 100 mls/hr IV .Q10H [facility] Last Admin: 10/19/17 13:00 Dose: 100 mls/hr Insulin Human Regular (Humulin R Low) 0 units SC ACHS [facility] PRN Reason: Protocol Last Admin: 10/19/17 22:17 Dose: Not Given Lorazepam (Ativan) 1 mg IVP Q6H PRN; Protocol PRN Reason: Agitation Last Admin: 10/18/17 01:33 Dose: 1 mg Lorazepam (Ativan) 2 mg PO Q4 [facility] PRN Reason: Protocol Last Admin: 10/20/17 05:21 Dose: 2 mg Multivitamins (Thera Tab) 1 tab PO 0800 [facility] Last Admin: 10/19/17 10:22 Dose: 1 tab Nicotine (Nicoderm Cq) 1 patch TD DAILY [facility] Last Admin: 10/19/17 10:22 Dose: 1 patch Oxcarbazepine (Trileptal) 450 mg PO BID [facility] PRN Reason: Protocol Last Admin: 10/19/17 18:02 Dose: 450 mg Thiamine HCl (Vitamin B1 Tab) 100 mg PO DAILY [facility] Last Admin: 10/19/17 10:21 Dose: 100 mg - Labs Labs: 10/19/17 11:45 10/19/17 11:45 - Constitutional Appears: No Acute Distress - Head Exam Head Exam: NORMAL INSPECTION - Neurological Exam Neurological Exam: Alert, Awake, Oriented x3 Neuro motor strength exam: Left Upper Extremity: 5, Right Upper Extremity: 5, Left Lower Extremity: 5, Right Lower Extremity: 5 Additional comments: Neurological improved from previous examination, he is alert, oriented x 3, follow commands. Sensation is intact. Assessment and Plan (1) Seizure Assessment & Plan: Case discussed with Dr. Hodge, continue all current medical regimen. Recommend supportive care. Recommend EEG on Saturday. Status: Acute
[2017-10-20 07:12] LABS: BASO # 0.03 K/mm3 (0.0-2.0); EOS # 0.1 (0.0-0.7); EOS % 2.6 % (1.5-5.0); GRAN # 1.48 (1.4-6.5); GRAN % 48.2 % (50.0-68.0); HEMOGLOBIN 12.8 g/dL (14.0-18.0); LYMPH # 0.8 (1.2-3.4); LYMPH % 27.4 % (22.0-35.0); MEAN CELL VOLUME 97.4 fl (80.0-105.0); MEAN CORPUSCULAR HEMOGLOBIN 33.9 pg (25.0-35.0); MEAN CORPUSCULAR HGB CONC 34.8 g/dl (31.0-37.0); MEAN PLATELET VOLUME 11.6 fl (7.0-11.0); MONO # 0.6 (0.1-0.6); MONO % 20.8 % (1.0-6.0); PLATELET COUNT 95 10^3/uL (120.0-450.0); RBC 3.78 10^6/uL (3.5-6.1); RED CELL DISTRIBUTION WIDTH 13.1 % (11.5-14.5); WHITE BLOOD COUNT 3.1 10^3/ul (4.5-11.0)
[2017-10-20 08:34] LABS: ALB/GLOB RATIO 1.3 (1.1-1.8); ALBUMIN 3.5 g/dL (3.0-4.8); ALT/SGPT 99 U/L (7-56); AST/SGOT 117 U/L (17-59); BLOOD UREA NITROGEN 4 mg/dL (7-21); CALCIUM 9.4 mg/dL (8.4-10.5); GFR AFRICAN-AMERICAN > 60; GFR NON-AFRICAN AMERICAN > 60
[2017-10-20] MEDS ORDERED: Potassium Chloride 20 mEq ER Tab PO ONE (08:43)
[2017-10-20] MEDS: Insulin Reg-LOW-Coverage SC SCH ×4 (08:51→21:48)
[2017-10-20 08:54] LABS: CK-MB 0.5 ng/mL (0.0-3.6)
[2017-10-20] MEDS: Multivitamin Therapeutic Tab PO SCH (09:16)
[2017-10-20 09:27] LABS: ATYPICAL LYMPHOCYTE 1 % (0.0-0.0); EOSINOPHIL 5 % (0.0-3.0); LYMPHOCYTE 32 % (22.0-35.0); MONOCYTE 20 % (1.0-6.0); NEUTROPHIL 42 % (50.0-70.0)
[2017-10-20 09:28] LABS: PLATELET ESTIMATE LOW (NORMAL)
--- NOTE | 2017-10-20 15:16 | CP.PCM.PN ---
<Jerel Young - Last Filed: 10/20/17 15:13> Subjective - Date & Time of Evaluation Date of Evaluation: 10/20/17 Time of Evaluation: 07:30 - Subjective Subjective: Galokayleejuan j Hector DO PGY1 - IM Progress Note Patient seen and examined at bedside. Per nursing staff, no acute events overnight. Patient is remains on 1:1 sitter, though has been off restraints for 2 days. Patient complaining of diffuse body aches, slightly improved with Motrin yesterday. He denies chest pain, shortness of breath, abdominal pain, fever, chills, nausea, vomiting, diarrhea, constipation. Objective - Vital Signs/Intake and Output Vital Signs (last 24 hours): Temp Pulse Resp BP Pulse Ox 98.6 F 89 18 159/101 H 97 10/20/17 12:00 10/20/17 14:00 10/20/17 12:00 10/20/17 12:08 10/20/17 06:00 Intake and Output: 10/20/17 10/20/17 06:59 18:59 Intake Total 2760 3060 Output Total 2000 2900 Balance 760 160 - Medications Medications: Current Medications Amlodipine Besylate (Norvasc) 10 mg PO DAILY [facility] Chlorpromazine (Thorazine) 10 mg PO BID [facility] PRN Reason: Protocol Last Admin: 10/20/17 09:16 Dose: 10 mg Clonidine HCl (Catapres) 0.1 mg PO BID PRN PRN Reason: Systolic Blood Pressure Diphenhydramine HCl (Benadryl) 50 mg IVP Q8H PRN PRN Reason: Agitation Last Admin: 10/17/17 05:51 Dose: 50 mg Famotidine (Pepcid) 20 mg PO HS [facility] Last Admin: 10/19/17 22:09 Dose: 20 mg Folic Acid (Folic Acid) 1 mg PO DAILY [facility] Last Admin: 10/20/17 09:17 Dose: 1 mg Ibuprofen (Motrin Tab) 600 mg PO Q6H PRN PRN Reason: Pain, Mild (1-3) Last Admin: 10/20/17 12:08 Dose: 600 mg Insulin Human Regular (Humulin R Low) 0 units SC ACHS [facility] PRN Reason: Protocol Last Admin: 10/20/17 12:07 Dose: Not Given Lorazepam (Ativan) 1 mg IVP Q6H PRN; Protocol PRN Reason: Agitation Last Admin: 10/18/17 01:33 Dose: 1 mg Lorazepam (Ativan) 2 mg PO Q6 [facility] PRN Reason: Protocol Last Admin: 10/20/17 12:11 Dose: 2 mg Multivitamins (Thera Tab) 1 tab PO 0800 [facility] Last Admin: 10/20/17 09:16 Dose: 1 tab Nicotine (Nicoderm Cq) 1 patch TD DAILY [facility] Last Admin: 10/20/17 12:07 Dose: 1 patch Oxcarbazepine (Trileptal) 450 mg PO BID [facility] PRN Reason: Protocol Last Admin: 10/20/17 12:07 Dose: 450 mg Thiamine HCl (Vitamin B1 Tab) 100 mg PO DAILY [facility] Last Admin: 10/20/17 09:16 Dose: 100 mg - Labs Labs: 10/20/17 06:00 10/20/17 06:00 - Additional Findings Additional findings: - Additional Findings Additional findings: - Constitutional Appears: Non-toxic, No Acute Distress - Head Exam Head Exam: ATRAUMATIC, NORMOCEPHALIC - Eye Exam Eye Exam: EOMI, Normal appearance - ENT Exam ENT Exam: Mucous Membranes Moist, Normal Oropharynx - Neck Exam Neck Exam: Normal Inspection - Respiratory Exam Respiratory Exam: Clear to Ausculation Bilateral, NORMAL BREATHING PATTERN. absent: Accessory Muscle Use - Cardiovascular Exam Cardiovascular Exam: RRR, +S1, +S2 - GI/Abdominal Exam GI & Abdominal Exam: Soft, Normal Bowel Sounds. absent: Guarding, Rebound - Extremities Exam Extremities Exam: Normal Inspection - Back Exam Back Exam: NORMAL INSPECTION. absent: CVA tenderness (L), CVA tenderness (R) - Neurological Exam Neurological Exam: Alert, Awake, Oriented to person and time; is able to say he is in [place], and knows he is not at home, unable to report that he is in a hospital - Psychiatric Exam Psychiatric exam: Normal Affect, Normal Mood - Skin Skin Exam: Dry, Intact, Normal Color, Warm Assessment and Plan - Assessment and Plan (Free Text) Assessment: 52 year old male with a past medical history of TBI, alcohol abuse, seizures, disinhibition, who presented to [facility] [place] for seizures via EMS and has been confused, agitated, and delirious. Psychiatry and neurology are on board. He has rhabdomyolysis secondary to his seizure and is being given IV fluids. He is on different level of restraints depending on how violent, disruptive, or combative he gets. Off restraints since 10/18/17. He is awaiting EEG. Plan: 1) Epilepsy and agitation in a patient with history of TBI and alcohol abuse - Trileptal 450 mg BID - Thorazine 10 mg BID - Ativan 2 mg PO decreased to q6h [facility] per psych - Ativan 1 mg IVP PRN q6h - Benadryl 50 mg q8h PRN for agitation - Neurology recommendations appreciated - Psychiatry recommendations appreciated - Will discontinue 1:1 today - PT eval/treat, recommends HWS 2) Malnutrition and history of alcoholism on AED - Folic acid, thiamine 3) Elevated blood pressure - Amlodipine increased to 10mg daily - Clonidine 0.1 mg BID PRN 4) Rhabdomyolysis secondary to seizures - CPK continues to trend down - Discontinued IFV; encouraged PO hydration - Strict I/O 5) Elevated LFTs secondary to alcohol abuse and possible drug induced - Enlarged liver with hepatic steatosis noted on CT scan - Trending down - Avoid hepatotoxins - Continue to monitor 6) Thrombocytopenia, multifactorial in a patient with testicular cancer treated with chemoradiation and surgery. - Hematology consult appreciated, HIT assay, serotinin release assay; negative - Thrombocytopenia improving - Patient had CT C/A/P for history of metastatic testicular cancer; significant for hepatic steatosis - Peripheral smear reveals reduced white blood cells and reduced platelets without evidence of rouleoux formation or large sized platelets Case reviewed and discussed with Dr. Iglesias. <Titi Iglesias - Last Filed: 10/20/17 15:51> Objective - Vital Signs/Intake and Output Vital Signs (last 24 hours): Temp Pulse Resp BP Pulse Ox 98.6 F 89 18 159/101 H 97 10/20/17 12:00 10/20/17 14:00 10/20/17 12:00 10/20/17 12:08 10/20/17 06:00 Intake and Output: 10/20/17 10/20/17 06:59 18:59 Intake Total 2760 3060 Output Total 1999 2900 Balance 760 160 - Medications Medications: Current Medications Amlodipine Besylate (Norvasc) 10 mg PO DAILY [facility] Chlorpromazine (Thorazine) 10 mg PO BID [facility] PRN Reason: Protocol Last Admin: 10/20/17 09:16 Dose: 10 mg Clonidine HCl (Catapres) 0.1 mg PO BID PRN PRN Reason: Systolic Blood Pressure Diphenhydramine HCl (Benadryl) 50 mg IVP Q8H PRN PRN Reason: Agitation Last Admin: 10/17/17 05:51 Dose: 50 mg Famotidine (Pepcid) 20 mg PO HS [facility] Last Admin: 10/19/17 22:09 Dose: 20 mg Folic Acid (Folic Acid) 1 mg PO DAILY [facility] Last Admin: 10/20/17 09:17 Dose: 1 mg Ibuprofen (Motrin Tab) 600 mg PO Q6H PRN PRN Reason: Pain, Mild (1-3) Last Admin: 10/20/17 12:08 Dose: 600 mg Insulin Human Regular (Humulin R Low) 0 units SC ACHS [facility] PRN Reason: Protocol Last Admin: 10/20/17 12:07 Dose: Not Given Lorazepam (Ativan) 1 mg IVP Q6H PRN; Protocol PRN Reason: Agitation Last Admin: 10/18/17 01:33 Dose: 1 mg Lorazepam (Ativan) 2 mg PO Q6 [facility] PRN Reason: Protocol Last Admin: 10/20/17 12:11 Dose: 2 mg Multivitamins (Thera Tab) 1 tab PO 0800 [facility] Last Admin: 10/20/17 09:16 Dose: 1 tab Nicotine (Nicoderm Cq) 1 patch TD DAILY [facility] Last Admin: 10/20/17 12:07 Dose: 1 patch Oxcarbazepine (Trileptal) 450 mg PO BID [facility] PRN Reason: Protocol Last Admin: 10/20/17 12:07 Dose: 450 mg Thiamine HCl (Vitamin B1 Tab) 100 mg PO DAILY [facility] Last Admin: 10/20/17 09:16 Dose: 100 mg - Labs Labs: 10/20/17 06:00 10/20/17 06:00 Attending/Attestation - Attestation I have personally seen and examined this patient.: Yes I have fully participated in the care of the patient.: Yes I have reviewed all pertinent clinical information, including history, physical exam and plan: Yes Notes (Text): 10/20/17 15:48 52 year old male with past medical history of TBI, alcohol abuse, seizure disorder and hypertension who presented with altered mental status and seizures. He was found to have significant rhabdomyolysis which has been improving. Will discontinue iv fluids. Encouraged po intake. Transaminitis is likely multifactorial secondary to ETOH abuse and medications. Depakote and seroquel were discontinued. Continue with trileptal as per neurology. Continue to monitor LFTs closely which are improving. Psychiatry is following patient. He is currently on thorazine. He is on ativan henry/prn for agitation and withdrawal symptoms. His mental status has improved to baseline. He is off restraints. Can monitor off 1:1 for now and begin to taper his ativan. Case was discussed with psychiatry today. Can attempt EEG tomorrow as patient has been more cooperative. PT follow up was requested. He also has thrombocytopenia for which hematology is following. Platelets have been stable. He was counselled on alcohol abstinence. Continue with multivitamin, folic acid and thiamine. Titi Iglesias MD Hospitalist.
--- NOTE | 2017-10-20 19:43 | PN ---
DATE: SUBJECTIVE: The patient is a 52-year-old male with reported history of TBI, history of alcohol use disorder. This technical writer involved into the patient's care because the patient had episodes of confusion and some agitation. The patient was followed up by this technical writer for the week. The patient finally started improving. The patient is off soft restraint. The patient does not have any agitation or aggression. The patient is compliant with medications and overall improving. This technical writer followed up on this patient today. The patient presented to be alert, pleasant, cooperative. At times, speech is incoherent, but considering the fact that the patient has history of TBI, it is expected. PHYSICAL EXAMINATION: VITAL SIGNS: Reviewed. Temperature 96.8, pulse is 80, blood pressure 159/101, respiration 18, oxygen saturation is 97. MEDICATIONS: Reviewed; Norvasc, Thorazine 10 mg twice a day which the patient tolerated well, Pepcid, folic acid, Benadryl and Catapres, Motrin, Ativan 2 mg p.o. every 6 hours scheduled. The patient is on tapering dose of Ativan. The patient is on multivitamins, thiamine and folic acid, Nicoderm, was started by Neurology. LABORATORY DATA: Labs reviewed. AST and ALT is trending down. CK-MB is going down. Potassium 3.4 today. MENTAL STATUS EXAMINATION: As this technical writer described above, the patient was much calmer. Intermittent eye contact. Mood is described as "what can I say, I am still in the hospital." Affect was flat. Thought process seems to be concrete. Speech at times incoherent, but seems like this is patient's baseline, but family should give us feedback. Thought content, the patient has some mild disorganized thought process, but the patient denied hearing voices, denied seeing things, denied paranoid ideation. Insight and judgment seems to be impaired, but better to compare with the first interaction with the patient. Impulses are well controlled. IMPRESSION: Multifactorial delirium, improving. The patient has history of traumatic brain injury, alcohol use disorder. PLAN: Continue current management. Continue current medications. The patient is on tapering dose of Ativan, multivitamins and folic acid. Thorazine 10 mg should be continued twice a day. The patient is in better behavioral control. One-to-one should be discontinued at least for the daytime and see how the patient will tolerate that. As per staff, the patient ate with good appetite. Physical therapy needs to evaluate the patient. Discussed with Dr. Iglesias and medical sales associate. We will follow up and advise accordingly. This technical writer also advised family to be involved in order to give us feedback if the patient is at his baseline or not. Should you have any questions, give me a call back. Thank you very much for letting me participate in the care of your patient. Myah Philippe MD
--- NOTE | 2017-10-20 20:37 | CP.PCM.PN ---
Subjective - Date & Time of Evaluation Date of Evaluation: 10/19/17 Time of Evaluation: 20:00 - Subjective Subjective: No acute events. Patient continues to have diffuse body pains. Unclear of need for prolonged hosptiailzation ROS: 12 ROS otherwise negative Objective - Vital Signs/Intake and Output Vital Signs (last 24 hours): Temp Pulse Resp BP Pulse Ox 97.8 F 85 18 165/99 H 98 10/20/17 17:34 10/20/17 17:34 10/20/17 17:34 10/20/17 17:34 10/20/17 17:34 Intake and Output: 10/20/17 10/21/17 18:59 06:59 Intake Total 3060 Output Total 2900 Balance 160 - Medications Medications: Current Medications Amlodipine Besylate (Norvasc) 10 mg PO DAILY [facility] Chlorpromazine (Thorazine) 10 mg PO BID [facility] PRN Reason: Protocol Last Admin: 10/20/17 17:36 Dose: 10 mg Clonidine HCl (Catapres) 0.1 mg PO BID PRN PRN Reason: Systolic Blood Pressure Diphenhydramine HCl (Benadryl) 50 mg IVP Q8H PRN PRN Reason: Agitation Last Admin: 10/17/17 05:51 Dose: 50 mg Famotidine (Pepcid) 20 mg PO HS [facility] Last Admin: 10/19/17 22:09 Dose: 20 mg Folic Acid (Folic Acid) 1 mg PO DAILY [facility] Last Admin: 10/20/17 09:17 Dose: 1 mg Ibuprofen (Motrin Tab) 600 mg PO Q6H PRN PRN Reason: Pain, Mild (1-3) Last Admin: 10/20/17 12:08 Dose: 600 mg Insulin Human Regular (Humulin R Low) 0 units SC ACHS [facility] PRN Reason: Protocol Last Admin: 10/20/17 17:27 Dose: Not Given Lorazepam (Ativan) 1 mg IVP Q6H PRN; Protocol PRN Reason: Agitation Last Admin: 10/18/17 01:33 Dose: 1 mg Lorazepam (Ativan) 2 mg PO Q6 [facility] PRN Reason: Protocol Last Admin: 10/20/17 17:35 Dose: 2 mg Multivitamins (Thera Tab) 1 tab PO 0800 [facility] Last Admin: 10/20/17 09:16 Dose: 1 tab Nicotine (Nicoderm Cq) 1 patch TD DAILY [facility] Last Admin: 10/20/17 12:07 Dose: 1 patch Oxcarbazepine (Trileptal) 450 mg PO BID [facility] PRN Reason: Protocol Last Admin: 10/20/17 17:27 Dose: 450 mg Thiamine HCl (Vitamin B1 Tab) 100 mg PO DAILY [facility] Last Admin: 10/20/17 09:16 Dose: 100 mg - Labs Labs: 10/20/17 06:00 10/20/17 06:00 - Constitutional Appears: Well - Cardiovascular Exam Cardiovascular Exam: REGULAR RHYTHM, +S1, +S2. absent: Murmur - GI/Abdominal Exam GI & Abdominal Exam: Soft, Normal Bowel Sounds. absent: Tenderness - Back Exam Back Exam: NORMAL INSPECTION Assessment and Plan - Assessment and Plan (Free Text) Plan: Mr. Bernal severino 52 y/o man with pmhx signficaint for TBI, ETOH abuse, epilepsy, HTN who presents with AMS in setting of reported seziures whose hospital course has been complicated by rhabdo and cytopenias. Patient's thromboctyopenia likely multifactorial: marrow suppresion due to prior ETOH abuse; consumption due to seizure, and medication induced (Anti-eplipetics most suspect). Counts appears stable for now. Will continue to monitor and continue medical management per primary team. Maxim Key MD Hematology Service.
--- NOTE | 2017-10-20 20:38 | CP.PCM.PN ---
Subjective - Date & Time of Evaluation Date of Evaluation: 10/20/17 Time of Evaluation: 20:00 - Subjective Subjective: No acute events. ROS: 12 ROS otherwise negative Objective - Vital Signs/Intake and Output Vital Signs (last 24 hours): Temp Pulse Resp BP Pulse Ox 97.8 F 85 18 165/99 H 98 10/20/17 17:34 10/20/17 17:34 10/20/17 17:34 10/20/17 17:34 10/20/17 17:34 Intake and Output: 10/20/17 10/21/17 18:59 06:59 Intake Total 3060 Output Total 2900 Balance 160 - Medications Medications: Current Medications Amlodipine Besylate (Norvasc) 10 mg PO DAILY [facility] Chlorpromazine (Thorazine) 10 mg PO BID [facility] PRN Reason: Protocol Last Admin: 10/20/17 17:36 Dose: 10 mg Clonidine HCl (Catapres) 0.1 mg PO BID PRN PRN Reason: Systolic Blood Pressure Diphenhydramine HCl (Benadryl) 50 mg IVP Q8H PRN PRN Reason: Agitation Last Admin: 10/17/17 05:51 Dose: 50 mg Famotidine (Pepcid) 20 mg PO HS [facility] Last Admin: 10/19/17 22:09 Dose: 20 mg Folic Acid (Folic Acid) 1 mg PO DAILY [facility] Last Admin: 10/20/17 09:17 Dose: 1 mg Ibuprofen (Motrin Tab) 600 mg PO Q6H PRN PRN Reason: Pain, Mild (1-3) Last Admin: 10/20/17 12:08 Dose: 600 mg Insulin Human Regular (Humulin R Low) 0 units SC ACHS [facility] PRN Reason: Protocol Last Admin: 10/20/17 17:27 Dose: Not Given Lorazepam (Ativan) 1 mg IVP Q6H PRN; Protocol PRN Reason: Agitation Last Admin: 10/18/17 01:33 Dose: 1 mg Lorazepam (Ativan) 2 mg PO Q6 [facility] PRN Reason: Protocol Last Admin: 10/20/17 17:35 Dose: 2 mg Multivitamins (Thera Tab) 1 tab PO 0800 [facility] Last Admin: 10/20/17 09:16 Dose: 1 tab Nicotine (Nicoderm Cq) 1 patch TD DAILY [facility] Last Admin: 10/20/17 12:07 Dose: 1 patch Oxcarbazepine (Trileptal) 450 mg PO BID [facility] PRN Reason: Protocol Last Admin: 10/20/17 17:27 Dose: 450 mg Thiamine HCl (Vitamin B1 Tab) 100 mg PO DAILY [facility] Last Admin: 10/20/17 09:16 Dose: 100 mg - Labs Labs: 10/20/17 06:00 10/20/17 06:00 - Constitutional Appears: Well - Respiratory Exam Respiratory Exam: Accessory Muscle Use - Cardiovascular Exam Cardiovascular Exam: REGULAR RHYTHM, +S1, +S2. absent: Murmur - GI/Abdominal Exam GI & Abdominal Exam: Soft, Normal Bowel Sounds. absent: Tenderness - Extremities Exam Extremities Exam: Full ROM, Normal Capillary Refill, Normal Inspection. absent : Joint Swelling, Pedal Edema Assessment and Plan - Assessment and Plan (Free Text) Assessment: Mr. Bernal severino 52 y/o man with pmhx signficaint for TBI, ETOH abuse, epilepsy, HTN who presents with AMS in setting of reported seziures whose hospital course has been complicated by rhabdo and cytopenias. Patient's thromboctyopenia likely multifactorial: marrow suppresion due to prior ETOH abuse; consumption due to seizure, and medication induced (Anti-eplipetics most suspect). Counts appears stable for now. Will continue to monitor and continue medical management per primary team. Maxim Key MD Hematology Service.
[2017-10-21 06:19] LABS: BASO # 0.03 K/mm3 (0.0-2.0); BASO % 0.8 % (0.0-3.0); EOS # 0.1 (0.0-0.7); EOS % 2.8 % (1.5-5.0); GRAN # 1.7 (1.4-6.5); GRAN % 47.7 % (50.0-68.0); LYMPH % 27.7 % (22.0-35.0); MEAN CELL VOLUME 97.1 fl (80.0-105.0); MEAN PLATELET VOLUME 11.3 fl (7.0-11.0); MONO # 0.8 (0.1-0.6); RBC 3.82 10^6/uL (3.5-6.1); RED CELL DISTRIBUTION WIDTH 13.3 % (11.5-14.5); WHITE BLOOD COUNT 3.6 10^3/ul (4.5-11.0)
[2017-10-21 07:02] LABS: ALB/GLOB RATIO 1.2 (1.1-1.8); ALBUMIN 3.6 g/dL (3.0-4.8); ALT/SGPT 100 U/L (7-56); AST/SGOT 97 U/L (17-59); BLOOD UREA NITROGEN 7 mg/dL (7-21); CALCIUM 9.6 mg/dL (8.4-10.5); GFR AFRICAN-AMERICAN > 60; GFR NON-AFRICAN AMERICAN > 60
[2017-10-21] MEDS: Insulin Reg-LOW-Coverage SC SCH ×4 (08:41→21:51)
[2017-10-21] MEDS ORDERED: Potassium Chloride 20 mEq ER Tab PO ONE (09:28)
[2017-10-21] MEDS ORDERED: Magnesium Sulfate 1 gm in D5W 1 GM/100 ML BAG IVPB ONE (09:36)
[2017-10-21] MEDS: Multivitamin Therapeutic Tab PO SCH (09:45)
--- NOTE | 2017-10-21 12:24 | CP.PCM.PN ---
Subjective - Date & Time of Evaluation Date of Evaluation: 10/21/17 Time of Evaluation: 12:22 - Subjective Subjective: Mr. Bernal was seen and examined at the bedside. He is alert, oriented in all spheres. He denies any headache, lightheadedness, blurred vision, dizziness, but complains of body aches after his physical therapy. He further states of enjoying his physical therapy. He did not exhibit any agitation or restless, so his 1:1 sitter was discontinued. He is able to follow all commands. There was no untoward events overnight. Objective - Vital Signs/Intake and Output Vital Signs (last 24 hours): Temp Pulse Resp BP Pulse Ox 98.5 F 87 20 140/90 97 10/21/17 06:00 10/21/17 10:00 10/21/17 06:00 10/21/17 09:46 10/21/17 06:00 Intake and Output: 10/21/17 10/21/17 06:59 18:59 Intake Total 180 Output Total 625 Balance -445 - Medications Medications: Current Medications Amlodipine Besylate (Norvasc) 10 mg PO DAILY [facility] Last Admin: 10/21/17 09:46 Dose: 10 mg Chlorpromazine (Thorazine) 10 mg PO BID [facility] PRN Reason: Protocol Last Admin: 10/21/17 09:45 Dose: 10 mg Clonidine HCl (Catapres) 0.1 mg PO BID PRN PRN Reason: Systolic Blood Pressure Diphenhydramine HCl (Benadryl) 50 mg IVP Q8H PRN PRN Reason: Agitation Last Admin: 10/17/17 05:51 Dose: 50 mg Famotidine (Pepcid) 20 mg PO HS [facility] Last Admin: 10/20/17 23:13 Dose: 20 mg Folic Acid (Folic Acid) 1 mg PO DAILY [facility] Last Admin: 10/21/17 09:46 Dose: 1 mg Ibuprofen (Motrin Tab) 600 mg PO Q6H PRN PRN Reason: Pain, Mild (1-3) Last Admin: 10/20/17 12:08 Dose: 600 mg Insulin Human Regular (Humulin R Low) 0 units SC ACHS [facility] PRN Reason: Protocol Last Admin: 10/21/17 08:41 Dose: Not Given Lorazepam (Ativan) 1 mg IVP Q6H PRN; Protocol PRN Reason: Agitation Last Admin: 10/18/17 01:33 Dose: 1 mg Lorazepam (Ativan) 1 mg PO Q6 [facility] PRN Reason: Protocol Multivitamins (Thera Tab) 1 tab PO 0800 [facility] Last Admin: 10/21/17 09:45 Dose: 1 tab Nicotine (Nicoderm Cq) 1 patch TD DAILY [facility] Last Admin: 10/21/17 09:46 Dose: 1 patch Oxcarbazepine (Trileptal) 450 mg PO BID [facility] PRN Reason: Protocol Last Admin: 10/21/17 12:06 Dose: 450 mg Thiamine HCl (Vitamin B1 Tab) 100 mg PO DAILY [facility] Last Admin: 10/21/17 09:46 Dose: 100 mg - Labs Labs: 10/21/17 05:00 10/21/17 05:00 - Constitutional Appears: No Acute Distress - Head Exam Head Exam: NORMAL INSPECTION - Neurological Exam Neurological Exam: Alert, Awake Neuro motor strength exam: Left Upper Extremity: 5, Right Upper Extremity: 5, Left Lower Extremity: 5, Right Lower Extremity: 5 Additional comments: Neurological improved from previous examination. Assessment and Plan (1) Seizure Assessment & Plan: Case discussed with Dr. Fay, continue all current medical and physical therapy. Pending EEG. Status: Acute
--- NOTE | 2017-10-21 13:45 | PN ---
DATE: FOLLOWUP NOTE SUBJECTIVE: The patient was followed up today. The patient presented much better to compare with the last week. The patient was oriented in self, time and place. The patient reported to feel better "the same as yesterday." he patient denied any physical complaints. The patient reports that his mood is fine. Affect is constricted. The patient is off one to one for past 2 days. Does not have any agitation, aggression or restless behavior. The patient tolerated medications well and on the way of recovery. Vital signs are stable. Temperature 98.5, pulse is 77, blood pressure 140/90, respirations 20, oxygen saturation is 97. Medications reviewed. The patient is on Norvasc; Thorazine 10 mg twice a day; Catapres as needed, but the patient did not require it; Benadryl; Pepcid; folic acid; Motrin; insulin; Ativan 2 mg p.o. every 6 hours scheduled. The patient is on tapering dose of Ativan, magnesium sulfate, multivitamins, Nicoderm, oxcarbazepine and thiamine. Labs reviewed. WBC cells 3.6. Platelets are coming up, today is 121. Coagulation reviewed. Blood gas reviewed. Chemistry reviewed from today. Potassium 3.4. AST and ALT are trending down. Urinalysis reviewed. Toxicology reviewed. Serology reviewed. MENTAL STATUS EXAMINATION: The patient presented much better, calm, cooperative, intermittent eye contact. Speech was underproductive. There is some poverty of speech. 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 Mood described fine. Affect was constricted. Mood congruent. Thought process seems to be concrete due to TBI. Thought content, the patient denied visual, auditory or tactile hallucinations. Denied paranoid ideation. The patient denied thoughts of harming himself or others. Denied intent or plan. Insight and judgment seems to be improving. Impulses are well controlled. At times, the patient had difficulty to find the right words, but as per family, this is the patient's baseline. Insight and judgment improving. Impulses are well controlled. IMPRESSION: As per history, the patient has alcohol use disorder, mood disorder, history of traumatic brain injury, rule out substance-induced mood disorder. The patient was in delirium stage. Most likely multifactorial, alcohol withdrawals as well as side effects from the medications and polypharmacy. PLAN: Continue current management. Continue current medication. Thorazine should be continued. Ativan should be tapered down not more than 15-20 present today. Discussed with the medical team on multiple occasions. Continue multivitamins, thiamine and folic acid. The patient deemed to be not in any imminent danger to self or others. At present moment, I will sign off. Should you have any questions, give me a call back. Thank you very much for letting me participate in the care of your patient. Myah Philippe MD
--- NOTE | 2017-10-21 17:06 | CP.PCM.PN ---
<Lane Mora - Last Filed: 10/21/17 17:10> Subjective - Date & Time of Evaluation Date of Evaluation: 10/21/17 Time of Evaluation: 07:10 - Subjective Subjective: Patient reports muscle aches, joint aches. Patient denies any headache, seizures , tremors, or convulsions. Nurse reports no events overnight. EEG performed. Objective - Vital Signs/Intake and Output Vital Signs (last 24 hours): Temp Pulse Resp BP Pulse Ox 98.3 F 83 20 150/91 H 97 10/21/17 12:00 10/21/17 12:00 10/21/17 12:00 10/21/17 12:00 10/21/17 06:00 Intake and Output: 10/21/17 10/21/17 06:59 18:59 Intake Total 180 Output Total 625 Balance -445 - Medications Medications: Current Medications Amlodipine Besylate (Norvasc) 10 mg PO DAILY [facility] Last Admin: 10/21/17 09:46 Dose: 10 mg Chlorpromazine (Thorazine) 10 mg PO BID [facility] PRN Reason: Protocol Last Admin: 10/21/17 09:45 Dose: 10 mg Clonidine HCl (Catapres) 0.1 mg PO BID PRN PRN Reason: Systolic Blood Pressure Diphenhydramine HCl (Benadryl) 50 mg IVP Q8H PRN PRN Reason: Agitation Last Admin: 10/17/17 05:51 Dose: 50 mg Famotidine (Pepcid) 20 mg PO HS [facility] Last Admin: 10/20/17 23:13 Dose: 20 mg Folic Acid (Folic Acid) 1 mg PO DAILY [facility] Last Admin: 10/21/17 09:46 Dose: 1 mg Ibuprofen (Motrin Tab) 600 mg PO Q6H PRN PRN Reason: Pain, Mild (1-3) Last Admin: 10/20/17 12:08 Dose: 600 mg Insulin Human Regular (Humulin R Low) 0 units SC [facility] PRN Reason: Protocol Last Admin: 10/21/17 11:30 Dose: Not Given Lorazepam (Ativan) 1 mg IVP Q6H PRN; Protocol PRN Reason: Agitation Last Admin: 10/18/17 01:33 Dose: 1 mg Lorazepam (Ativan) 1 mg PO Q6 [facility] PRN Reason: Protocol Multivitamins (Thera Tab) 1 tab PO 0800 [facility] Last Admin: 10/21/17 09:45 Dose: 1 tab Nicotine (Nicoderm Cq) 1 patch TD DAILY [facility] Last Admin: 10/21/17 09:46 Dose: 1 patch Oxcarbazepine (Trileptal) 450 mg PO BID [facility] PRN Reason: Protocol Last Admin: 10/21/17 12:06 Dose: 450 mg Thiamine HCl (Vitamin B1 Tab) 100 mg PO DAILY [facility] Last Admin: 10/21/17 09:46 Dose: 100 mg - Labs Labs: 10/21/17 05:00 10/21/17 05:00 - Constitutional Appears: Non-toxic, No Acute Distress - Head Exam Head Exam: ATRAUMATIC, NORMOCEPHALIC - Eye Exam Eye Exam: EOMI, Normal appearance - ENT Exam ENT Exam: Mucous Membranes Moist - Neck Exam Neck Exam: Normal Inspection - Respiratory Exam Respiratory Exam: Clear to Ausculation Bilateral, NORMAL BREATHING PATTERN. absent: Accessory Muscle Use - Cardiovascular Exam Cardiovascular Exam: RRR, +S1, +S2 - GI/Abdominal Exam GI & Abdominal Exam: Soft, Normal Bowel Sounds - Extremities Exam Extremities Exam: Normal Inspection. absent: Calf Tenderness - Back Exam Back Exam: NORMAL INSPECTION. absent: CVA tenderness (L), CVA tenderness (R) - Neurological Exam Neurological Exam: Awake - Psychiatric Exam Psychiatric exam: Normal Affect, Normal Mood - Skin Skin Exam: Dry, Intact, Normal Color, Warm Assessment and Plan - Assessment and Plan (Free Text) Assessment: 52 year old male with a past medical history of TBI, alcohol abuse, seizures, disinhibition, who presented to [facility] [place] for seizures via EMS and has been confused, agitated, and delirious. Psychiatry and neurology are on board. He has rhabdomyolysis secondary to his seizure and is being given IV fluids. He was requiring different different level of restraints depending on how violent, disruptive, or combative he got. Now, he is off restraints since 10/18/17. EEG performed today, pending read. Plan: 1) Epilepsy and agitation in a patient with history of TBI and alcohol abuse - Trileptal 450 mg BID - Thorazine 10 mg BID - Ativan 1 mg PO q6h [facility] - Ativan 1 mg IVP PRN q6h - Benadryl 50 mg q8h PRN for agitation - Neurology recommendations appreciated - Psychiatry recommendations appreciated - Will discontinue 1:1 today - PT eval/treat, recommends HWS 1a) Benzodiazepine taper - Ativan 1 mg PO q6h [facility] - monitor for agitation 2) Malnutrition and history of alcoholism on AED - Folic acid, thiamine 3) Elevated blood pressure - Amlodipine increased to 10mg daily - Clonidine 0.1 mg BID PRN 4) Rhabdomyolysis secondary to seizures - CPK continues to trend down - Discontinued IFV; encouraged PO hydration - Strict I/O 5) Elevated LFTs secondary to alcohol abuse and possible drug induced - Enlarged liver with hepatic steatosis noted on CT scan - Trending down - Avoid hepatotoxins - Continue to monitor 6) Thrombocytopenia, multifactorial in a patient with testicular cancer treated with chemoradiation and surgery. - Hematology consult appreciated, HIT assay, serotinin release assay; negative - Thrombocytopenia improving - Patient had CT C/A/P for history of metastatic testicular cancer; significant for hepatic steatosis - Peripheral smear reveals reduced white blood cells and reduced platelets without evidence of rouleoux formation or large sized platelets 7) Electrolyte disturbance - Magnesium and Potassium repleted Case reviewed and discussed with Dr. Richmond. <Deon Richmond - Last Filed: 10/22/17 17:06> Objective - Vital Signs/Intake and Output Vital Signs (last 24 hours): Temp Pulse Resp BP Pulse Ox 98.4 F 70 20 110/71 98 10/22/17 08:05 10/22/17 08:05 10/22/17 08:05 10/22/17 10:17 10/22/17 08:05 Intake and Output: 10/22/17 10/22/17 06:59 18:59 Intake Total 780 900 Output Total 1400 1200 Balance -620 -300 - Medications Medications: Current Medications Amlodipine Besylate (Norvasc) 10 mg PO DAILY [facility] Last Admin: 10/22/17 10:17 Dose: 10 mg Chlorpromazine (Thorazine) 10 mg PO BID [facility] PRN Reason: Protocol Last Admin: 10/22/17 10:21 Dose: 10 mg Clonidine HCl (Catapres) 0.1 mg PO BID PRN PRN Reason: Systolic Blood Pressure Diphenhydramine HCl (Benadryl) 50 mg IVP Q8H PRN PRN Reason: Agitation Last Admin: 10/17/17 05:51 Dose: 50 mg Famotidine (Pepcid) 20 mg PO HS [facility] Last Admin: 10/21/17 21:14 Dose: 20 mg Folic Acid (Folic Acid) 1 mg PO DAILY [facility] Last Admin: 10/22/17 10:18 Dose: 1 mg Ibuprofen (Motrin Tab) 600 mg PO Q6H PRN PRN Reason: Pain, Mild (1-3) Last Admin: 10/21/17 18:37 Dose: 600 mg Insulin Human Regular (Humulin R Low) 0 units SC ACHS [facility] PRN Reason: Protocol Last Admin: 10/22/17 12:29 Dose: Not Given Lorazepam (Ativan) 1 mg IVP Q6H PRN; Protocol PRN Reason: Agitation Last Admin: 10/18/17 01:33 Dose: 1 mg Lorazepam (Ativan) 1 mg PO Q6 [facility] PRN Reason: Protocol Last Admin: 10/22/17 13:20 Dose: 1 mg Multivitamins (Thera Tab) 1 tab PO 0800 [facility] Last Admin: 10/22/17 10:17 Dose: 1 tab Nicotine (Nicoderm Cq) 1 patch TD DAILY [facility] Last Admin: 10/22/17 10:16 Dose: 1 patch Oxcarbazepine (Trileptal) 450 mg PO BID [facility] PRN Reason: Protocol Last Admin: 10/22/17 10:17 Dose: 450 mg Thiamine HCl (Vitamin B1 Tab) 100 mg PO DAILY [facility] Last Admin: 10/22/17 10:17 Dose: 100 mg - Labs Labs: 10/22/17 06:27 10/22/17 06:27 Attending/Attestation - Attestation I have personally seen and examined this patient.: Yes I have fully participated in the care of the patient.: Yes I have reviewed all pertinent clinical information, including history, physical exam and plan: Yes Notes (Text): 10/22/17 17:00 Medical record note made by the resident after discussion with my direction and input after the patient was personally seen and examined by me. I have reviewed the chart and agree that the record accurately reflects by personal performance of the history, physical exam, data review, and medical decision-making, in the course for the patient. I have also personally directed the plan of care. 52 yrs old Female with PMH of Traumatic brain injury, alcohol abuse, seizure disorder and hypertension who presented with altered mental status and seizures. He was found to have significant rhabdomyolysis which has been improved. Transaminitis is likely multifactorial secondary to ETOH abuse and medications. Depakote and seroquel were discontinued.LFT are improving Continue with trileptal as per neurology for seizure.Psychiatry is following patient. He is currently on thorazine. He is on ativan henry/prn for agitation and withdrawal symptoms.His mental status has improved to baseline. He is off restraints and 1.1.There is no sign of alcohol withdrawal. EEG is unremarkable as per Neurology. We will taper down Ativan. Patient will be discharged home with home with services, has refused NILES. Prognosis is guarded.
[2017-10-22 06:39] LABS: BASO # 0.03 K/mm3 (0.0-2.0); BASO % 0.7 % (0.0-3.0); EOS # 0.2 (0.0-0.7); EOS % 3.6 % (1.5-5.0); GRAN # 1.78 (1.4-6.5); GRAN % 42.2 % (50.0-68.0); HEMOGLOBIN 13.1 g/dL (14.0-18.0); LYMPH # 1.3 (1.2-3.4); LYMPH % 31.4 % (22.0-35.0); MEAN CELL VOLUME 96.1 fl (80.0-105.0); MEAN CORPUSCULAR HEMOGLOBIN 33.9 pg (25.0-35.0); MEAN CORPUSCULAR HGB CONC 35.2 g/dl (31.0-37.0); MONO # 0.9 (0.1-0.6); MONO % 22.1 % (1.0-6.0); RBC 3.87 10^6/uL (3.5-6.1); WHITE BLOOD COUNT 4.2 10^3/ul (4.5-11.0)
[2017-10-22 07:30] LABS: ALB/GLOB RATIO 1.3 (1.1-1.8); ALBUMIN 3.9 g/dL (3.0-4.8); ALT/SGPT 99 U/L (7-56); AST/SGOT 85 U/L (17-59); BLOOD UREA NITROGEN 11 mg/dL (7-21); CALCIUM 9.4 mg/dL (8.4-10.5); GFR AFRICAN-AMERICAN > 60; GFR NON-AFRICAN AMERICAN > 60
[2017-10-22 07:43] LABS: CK-MB 0.8 ng/mL (0.0-3.6)
[2017-10-22] MEDS: Insulin Reg-LOW-Coverage SC SCH ×4 (07:54→21:27)
[2017-10-22] MEDS: Multivitamin Therapeutic Tab PO SCH (10:17)
--- NOTE | 2017-10-22 13:47 | CP.PCM.PN ---
Subjective - Date & Time of Evaluation Date of Evaluation: 10/22/17 Time of Evaluation: 09:10 - Subjective Subjective: Heme-onc Progress Note, James Herrera DO, PGY-2 IM This is a 52 y/o Male with pmh of traumatic ICH (2/2 seizure episode), TBI, chronic alcohol abuse, gerd, htn, seizure disorders, heavy tobacco abuse, mood disorder, and hx of metastatic testicular cancer s/p surgery/chemo/radiation who presented to [facility] [place] after a witnessed seizure at home. Heme-onc was consulted for thrombocytopenia and concern for HIT. Seen and examined at bedside. No long restrained, no longer reports hallucinations. Oriented to self, location, and time. Denies acute complaints , including chest pain, shortness of breath, or emesis. Objective - Vital Signs/Intake and Output Vital Signs (last 24 hours): Temp Pulse Resp BP Pulse Ox 98.4 F 70 20 110/71 98 10/22/17 08:05 10/22/17 08:05 10/22/17 08:05 10/22/17 10:17 10/22/17 08:05 Intake and Output: 10/22/17 10/22/17 06:59 18:59 Intake Total 780 Output Total 1400 Balance -620 - Medications Medications: Current Medications Amlodipine Besylate (Norvasc) 10 mg PO DAILY [facility] Last Admin: 10/22/17 10:17 Dose: 10 mg Chlorpromazine (Thorazine) 10 mg PO BID [facility] PRN Reason: Protocol Last Admin: 10/22/17 10:21 Dose: 10 mg Clonidine HCl (Catapres) 0.1 mg PO BID PRN PRN Reason: Systolic Blood Pressure Diphenhydramine HCl (Benadryl) 50 mg IVP Q8H PRN PRN Reason: Agitation Last Admin: 10/17/17 05:51 Dose: 50 mg Famotidine (Pepcid) 20 mg PO HS [facility] Last Admin: 10/21/17 21:14 Dose: 20 mg Folic Acid (Folic Acid) 1 mg PO DAILY [facility] Last Admin: 10/22/17 10:18 Dose: 1 mg Ibuprofen (Motrin Tab) 600 mg PO Q6H PRN PRN Reason: Pain, Mild (1-3) Last Admin: 10/21/17 18:37 Dose: 600 mg Insulin Human Regular (Humulin R Low) 0 units SC ACHS [facility] PRN Reason: Protocol Last Admin: 10/22/17 12:29 Dose: Not Given Lorazepam (Ativan) 1 mg IVP Q6H PRN; Protocol PRN Reason: Agitation Last Admin: 10/18/17 01:33 Dose: 1 mg Lorazepam (Ativan) 1 mg PO Q6 [facility] PRN Reason: Protocol Last Admin: 10/22/17 13:20 Dose: 1 mg Multivitamins (Thera Tab) 1 tab PO 0800 [facility] Last Admin: 10/22/17 10:17 Dose: 1 tab Nicotine (Nicoderm Cq) 1 patch TD DAILY [facility] Last Admin: 10/22/17 10:16 Dose: 1 patch Oxcarbazepine (Trileptal) 450 mg PO BID [facility] PRN Reason: Protocol Last Admin: 10/22/17 10:17 Dose: 450 mg Thiamine HCl (Vitamin B1 Tab) 100 mg PO DAILY [facility] Last Admin: 10/22/17 10:17 Dose: 100 mg - Labs Labs: 10/22/17 06:27 10/22/17 06:27 - Additional Findings Additional findings: - Constitutional Appears: Non-toxic, No Acute Distress, Unkempt, bilateral UE restraints - Head Exam Head Exam: ATRAUMATIC, NORMAL INSPECTION, NORMOCEPHALIC - Eye Exam Eye Exam: EOMI, Normal appearance. absent: Conjunctival injection, Scleral icterus Pupil Exam: absent: Irregular, Unequal - ENT Exam ENT Exam: Mucous Membranes Moist - Neck Exam Neck exam: Positive for: Full Rom, Normal Inspection - Respiratory Exam Respiratory Exam: Decreased Breath Sounds (mildly decreased breath sounds in all breaux, otherwise CTAB), Clear to Auscultation Bilateral, NORMAL BREATHING PATTERN. absent: Accessory Muscle Use, Chest Wall Tenderness, Rales, Rhonchi, Wheezes - Cardiovascular Exam Cardiovascular Exam: REGULAR RHYTHM, RRR, +S1, +S2. absent: Bradycardia, Tachycardia, Irregular Rhythm, JVD, +S4 - GI/Abdominal Exam GI & Abdominal Exam: Normal Bowel Sounds, Hepatosplenomegaly (spleen palpable laterally from left flank), Soft. absent: Distended, Firm, Rigid, Tenderness - Extremities Exam Extremities exam: Positive for: normal inspection. Negative for: calf tenderness, pedal edema, tenderness Additional comments: scattered echymosis and two small scabs along anterior portion of bilateral LE in various states of healing - Neurological Exam Additional comments: awake and alert, oriented to self/location/year motor grossly intact and equal, moving all extremities spontaneously - Psychiatric Exam Psychiatric exam: Normal Affect, Normal Mood - Skin Skin Exam: Dry, Intact (except as noted in extremities exam), Normal Color, Warm Assessment and Plan - Assessment and Plan (Free Text) Assessment: This is a 52 y/o Male with pmh of traumatic ICH (2/2 seizure episode), TBI, chronic alcohol abuse, gerd, htn, seizure disorders, heavy tobacco abuse, mood disorder, and hx of metastatic testicular cancer s/p surgery/chemo/radiation who presented to [facility] [place] after a witnessed seizure at home. Heme-onc was consulted for thrombocytopenia and concern for HIT. Plan: Metastatic testicular ca s/p surgery/chemo/radiation EtOH abuse Tobacco abuse HTN Hx traumatic ICH Seizure disorder Thrombocytopenia - improved Leukopenia - stable Elevated LFTs - improving Rhabdo - improved -Plts 150 today -leukopenia holding stable, 4.2 today -HIT panel negative -On multiple medications that can cause thrombocytopenia, can consider switching protonix to pepcid, however needs to be on his antiepileptics due to seizure disorder and hx of ICH 2/2 seizures; EtOH hx also likely contributory, and depending on what chemo and radiation regimen he underwent for his cancer, may also have contributory effect -Neuro following, appreciate their input; defer to neuro for appropriate anti- epileptic medications in setting of thrombocytopenia and elevated LFTs -LFT elevations likely alcoholic hepatitis vs medication-induced; improving -still pending CT chest/abd/pelvis to assess for mets, CT head already obtained and is negative -Thrombocytopenia appears resolved, likely 2/2 alcohol abuse Patient reviewed and discussed at length with attending, Dr. Key
--- NOTE | 2017-10-22 15:38 | CP.PCM.DIS ---
Provider - Provider Date of Admission: 10/12/17 23:54 Attending physician: Deon Richmond MD Primary care physician: NO PRIMARY CARE PROVIDER Consults: Dr. Hodge Neurologist Dr. Key Hematology Dr. Glasgow psychiatry Time Spent in preparation of Discharge (in minutes): 55 Hospital Course - Lab Results Lab Results: Most Recent Lab Values WBC 4.2 10^3/ul (4.5-11.0) L 10/22/17 06:27 RBC 3.87 10^6/uL (3.5-6.1) 10/22/17 06:27 Hgb 13.1 g/dL (14.0-18.0) L 10/22/17 06:27 Hct 37.2 % (42.0-52.0) L 10/22/17 06:27 MCV 96.1 fl (80.0-105.0) 10/22/17 06:27 MCH 33.9 pg (25.0-35.0) 10/22/17 06: MCHC 35.2 g/dl (31.0-37.0) 10/22/17 06:27 RDW 13.0 % (11.5-14.5) 10/22/17 06:27 Plt Count 150 10^3/uL (120.0-450.0) 10/22/17 06:27 MPV 11.0 fl (7.0-11.0) 10/22/17 06:27 Gran % 42.2 % (50.0-68.0) L 10/22/17 06:27 Lymph % (Auto) 31.4 % (22.0-35.0) 10/22/17 06:27 [place] % (Auto) 22.1 % (1.0-6.0) H 10/22/17 06:27 Eos % (Auto) 3.6 % (1.5-5.0) 10/22/17 06:27 Baso % (Auto) 0.7 % (0.0-3.0) 10/22/17 06:27 Gran # 1.78 (1.4-6.5) 10/22/17 06:27 Lymph # (Auto) 1.3 (1.2-3.4) 10/22/17 06:27 [place] # (Auto) 0.9 (0.1-0.6) H 10/22/17 06:27 Eos # (Auto) 0.2 (0.0-0.7) 10/22/17 06:27 Baso # (Auto) 0.03 K/mm3 (0.0-2.0) 10/22/17 06:27 Neutrophils % (Manual) 42 % (50.0-70.0) L 10/20/17 06:00 Lymphocytes % (Manual) 32 % (22.0-35.0) 10/20/17 06:00 Atypical Lymphs % 1 % (0.0-0.0) H 10/20/17 06:00 Monocytes % (Manual) 20 % (1.0-6.0) H 10/20/17 06:00 Eosinophils % (Manual) 5 % (0.0-3.0) H 10/20/17 06:00 Platelet Evaluation Low (NORMAL) 10/20/17 06:00 Hep-Mayra Thrombocytopen Negative (Negative) 10/16/17 09:00 pO2 144 mm/Hg (30-55) H 10/13/17 06:00 VBG pH 7.44 (7.32-7.43) H 10/13/17 06:00 VBG pCO2 37.0 (40-60) L 10/13/17 06:00 VBG HCO3 25.1 mmol/l (21-28) 10/13/17 06:00 VBG Total CO2 26.2 mmol.L (22-28) 10/13/17 06:00 VBG O2 Sat (Calc) 99.4 % (40-65) H 10/13/17 06:00 VBG Base Excess 1.1 mmol/L (0.0-2.0) 10/13/17 06:00 VBG Potassium 3.0 mmol/L (3.6-5.2) L 10/13/17 06:00 Sodium 138.0 mmol/L (132-148) 10/13/17 06:00 Chloride 109.0 mmol/L (98-107) H 10/13/17 06:00 Glucose 87 mg/dl (75-110) 10/13/17 06:00 Lactate 1.5 mmol/L (0.7-2.1) 10/13/17 06:00 FiO2 21.0 % 10/13/17 06:00 Sodium 135 mmol/L (132-148) 10/22/17 06:27 Potassium 4.5 mmol/L (3.6-5.0) 10/22/17 06:27 Chloride 99 mmol/L (98-107) 10/22/17 06:27 Carbon Dioxide 29 mmol/L (21-33) 10/22/17 06:27 Anion Gap 11 (10-20) 10/22/17 06:27 BUN 11 mg/dL (7-21) 10/22/17 06:27 Creatinine 0.7 mg/dl (0.8-1.5) L 10/22/17 06:27 Est GFR ( Amer) > 60 10/22/17 06:27 Est GFR (Non-Af Amer) > 60 10/22/17 06:27 POC Glucose (mg/dL) 103 mg/dL (65-110) 10/22/17 10:59 Random Glucose 98 mg/dL (70-110) 10/22/17 06:27 Hemoglobin A1c 5.2 % (4.2-6.5) 10/14/17 07:40 Calcium 9.4 mg/dL (8.4-10.5) 10/22/17 06:27 Phosphorus 2.2 mg/dL (2.5-4.5) L 10/13/17 06:00 Magnesium 1.5 mg/dL (1.7-2.2) L 10/21/17 05:00 Total Bilirubin 0.8 mg/dL (0.2-1.3) 10/22/17 06:27 Direct Bilirubin 0.6 mg/dL (0.0-0.4) H 10/14/17 07:40 AST 85 U/L (17-59) H 10/22/17 06:27 ALT 99 U/L (7-56) H 10/22/17 06:27 Alkaline Phosphatase 51 U/L (38-126) 10/22/17 06:27 Lactate Dehydrogenase 627 U/L (333-699) 10/12/17 20:34 Total Creatine Kinase 436 U/L (35-230) H 10/22/17 06:27 CK-MB (CK-2) 0.8 ng/mL (0.0-3.6) 10/22/17 06:27 CK-MB (CK-2) % 0.0 % (2.5-3.0) L 10/15/17 08:00 Troponin I < 0.01 ng/mL 10/12/17 20:34 Total Protein 7.0 g/dL (5.8-8.3) 10/22/17 06:27 Albumin 3.9 g/dL (3.0-4.8) 10/22/17 06:27 Globulin 3.0 gm/dL 10/22/17 06:27 Albumin/Globulin Ratio 1.3 (1.1-1.8) 10/22/17 06:27 Triglycerides 382 mg/dL (35-160) H 10/14/17 07:40 Cholesterol 175 mg/dL (130-200) 10/14/17 07:40 LDL Cholesterol Direct 78 mg/dL (0-129) 10/14/17 07:40 HDL Cholesterol 60 mg/dL (29-60) 10/14/17 07:40 Amylase 41 U/L (35-125) 10/16/17 07:00 Lipase 118 U/L (23-300) 10/16/17 07:00 UF Heparin Interp Negative (Negative) 10/16/17 09:00 TSH 3rd Generation 3.68 mIU/mL (0.46-4.68) 10/14/17 07:40 Venous Blood Potassium 3.0 mmol/L (3.6-5.2) L 10/13/17 06:00 Urine Color Yellow (YELLOW) 10/12/17 23:20 Urine Appearance Sl cloudy (CLEAR) 10/12/17 23:20 Urine pH 6.0 (4.7-8.0) 10/12/17 23:20 Ur Specific [place] 1.015 (1.005-1.035) 10/12/17 23:20 Urine Protein Trace mg/dL (<30 mg/dL) H 10/12/17 23:20 Urine Glucose (UA) Negative mg/dL (NEGATIVE) 10/12/17 23:20 Urine Ketones Trace mg/dL (NEGATIVE) H 10/12/17 23:20 Urine Blood Small (NEGATIVE) H 10/12/17 23:20 Urine Nitrate Negative (NEGATIVE) 10/12/17 23:20 Urine Bilirubin Negative (NEGATIVE) 10/12/17 23:20 Urine Urobilinogen 0.2 E.U./dL (<1 E.U./dL) 10/12/17 23:20 Ur Leukocyte Esterase Negative Danya/uL (NEGATIVE) 10/12/17 23:20 Urine RBC 1 - 3 /hpf (0-2) 10/12/17 23:20 Urine WBC 0 - 2 /hpf (0-6) 10/12/17 23:20 Ur Epithelial Cells 0 - 2 /hpf (0-5) 10/12/17 23:20 Urine Bacteria Few (NEG) 10/12/17 23:20 Urine Opiates Screen Negative (NEGATIVE) 10/12/17 23:20 Urine Methadone Screen Negative (NEGATIVE) 10/12/17 23:20 Ur Barbiturates Screen Negative (NEGATIVE) 10/12/17 23:20 Valproic Acid 40 ug/mL (50.0-100.0) L 10/14/17 07:40 Carbamazepine < 3 ug/mL (4.0-10.0) L 10/14/17 07:40 Ur Phencyclidine Scrn Negative (NEGATIVE) 10/12/17 23:20 Ur Amphetamines Screen Negative (NEGATIVE) 10/12/17 23:20 U Benzodiazepines Scrn Positive (NEGATIVE) 10/12/17 23:20 U Oth Cocaine Metabols Negative (NEGATIVE) 10/12/17 23:20 U Cannabinoids Screen Positive (NEGATIVE) H 10/12/17 23:20 Alcohol, Quantitative < 10 mg/dL (0-10) 10/12/17 20:34 Heparin-induced Plt Ab Negative (Negative) 10/16/17 09:00 MONICA UFH Low Dose 0.1 0 % Release 10/16/17 09:00 MONICA UFH Low Dose 0.5 0 % Release 10/16/17 09:00 MONICA UFH High Dose 100 0 % Release 10/16/17 09:00 Hepatitis A IgM Ab Negative (NEGATIVE) 10/15/17 08:00 Hep Bs Antigen Negative (NEGATIVE) 10/15/17 08:00 Hep B Core IgM Ab Negative (NEGATIVE) 10/15/17 08:00 Hepatitis C Antibody Negative (NEGATIVE) 10/15/17 08:00 - Hospital Course Hospital Course: 52 year old male with past medical history of TBI, alcohol abuse, seizure disorder and hypertension who presented with altered mental status and seizures. Inital labs and diagnostic revealed rhabdomyolysis with a Will discontinue iv fluids. Encouraged po intake. Transaminitis is likely multifactorial secondary to ETOH abuse and medications. Depakote and seroquel were discontinued. Continue with trileptal as per neurology. Continue to monitor LFTs closely which are improving. Psychiatry is following patient. He is currently on thorazine. He is on ativan henry/prn for agitation and withdrawal symptoms. His mental status has improved to baseline. He is off restraints. Can monitor off 1:1 for now and begin to taper his ativan. Case was discussed with psychiatry today. Can attempt EEG tomorrow as patient has been more cooperative. PT follow up was requested. He also has thrombocytopenia for which hematology is following. Platelets have been stable. He was counselled on alcohol abstinence. Continue with multivitamin, folic acid and thiamine - Date & Time of H&P Date of H&P: 10/22/17 Time of H&P: 15:37 Discharge Exam - Head Exam Head Exam: ATRAUMATIC, NORMOCEPHALIC - Eye Exam Eye Exam: EOMI, Normal appearance - ENT Exam ENT Exam: Mucous Membranes Moist, Normal Oropharynx - Respiratory Exam Respiratory Exam: Clear to PA & Lateral, NORMAL BREATHING PATTERN. absent: Accessory Muscle Use - Cardiovascular Exam Cardiovascular Exam: RRR, +S1, +S2 - GI/Abdominal Exam GI & Abdominal Exam: Normal Bowel Sounds. absent: Guarding Discharge Plan - Discharge Medications Prescriptions: amLODIPine [Norvasc] 10 mg PO DAILY #30 tab chlorproMAZINE [Thorazine] 10 mg PO BID #60 tab Folic Acid 1 mg PO DAILY #30 tab LORazepam [Ativan] See Taper PO DAILY #12 tab Multivitamin Therapeutic Tab [Thera Tab] 1 tab PO DAILY #30 tab Nicotine 14 mg/24 hr [Nicoderm CQ] 1 patch TD DAILY #14 patch OXcarbazepine [Trileptal] 450 mg PO BID #60 tab Thiamine [Vitamin B1 Tab] 100 mg PO DAILY #30 tab - Follow Up Plan Condition: GUARDED Disposition: HOME/ ROUTINE Instructions: Seizures, Adult (DC), Alcohol Withdrawal (DC), Epilepsy (DC), Epilepsy (GEN), Myelodysplastic Syndromes (DC), Myelodysplastic Syndromes (GEN) Additional Instructions: You are being discharged to home. 1) Follow up with primary care doctor at [facility] at [facility] Call [phone] to schedule an appointment. 2) Follow up with [facility] [address] [place] [id number] [address]) Access from [email or web address] [address] - [address]. 3) Do not skip medicine. Otherwise it will cause seizure or mood aggravation. 4) Patient to follow up with a neurologist, Dr. Hodge or Dr. Fay 5) Patient was discharged with an Ativan taper: 1 mg BID for two days and 1 mg HS for two days. Referrals: [facility] [Outside] [facility] at [facility] [Outside]
--- NOTE | 2017-10-22 16:49 | CP.PCM.PCO ---
Addendum Addendum: 10/22/17 16:48 Patient was provided with information about outpatient clinics Patient sister was next to him Patient presented well Patient presented not to be in imminent danger to self or others
--- NOTE | 2017-10-22 18:53 | CP.PCM.PN ---
<Lane Mora - Last Filed: 10/22/17 19:01> Subjective - Date & Time of Evaluation Date of Evaluation: 10/22/17 Time of Evaluation: 18:50 - Subjective Subjective: Lane Mora DO, PGY-1: Hospitalist Service Patient seen and examined in the morning. Patient was doing very well today. When sister or relative came to bean picker patient, she was somehow informed that psychiatry and neurology did not clear the patient medically. The sister (legal guardian) left the hospital premise and were unable to be reached my phone. After speaking with the nursing staff on 5A it appears case management asked for proof which was provided via fax that they are in fact legal guardians of the patient, and furthermore, the family would like to request a meeting with the medical team before the patient is discharged. Otherwise, no adverse events overnight. Objective - Vital Signs/Intake and Output Vital Signs (last 24 hours): Temp Pulse Resp BP Pulse Ox 98.4 F 70 20 110/71 98 10/22/17 08:05 10/22/17 08:05 10/22/17 08:05 10/22/17 10:17 10/22/17 08:05 Intake and Output: 10/22/17 10/22/17 06:59 18:59 Intake Total 780 900 Output Total 1400 1200 Balance -620 -300 - Medications Medications: Current Medications Amlodipine Besylate (Norvasc) 10 mg PO DAILY [facility] Last Admin: 10/22/17 10:17 Dose: 10 mg Chlorpromazine (Thorazine) 10 mg PO BID ROLAND PRN Reason: Protocol Last Admin: 10/22/17 17:32 Dose: 10 mg Diphenhydramine HCl (Benadryl) 50 mg IVP Q8H PRN PRN Reason: Agitation Last Admin: 10/17/17 05:51 Dose: 50 mg Famotidine (Pepcid) 20 mg PO HS [facility] Last Admin: 10/21/17 21:14 Dose: 20 mg Folic Acid (Folic Acid) 1 mg PO DAILY [facility] Last Admin: 10/22/17 10:18 Dose: 1 mg Ibuprofen (Motrin Tab) 600 mg PO Q6H PRN PRN Reason: Pain, Mild (1-3) Last Admin: 10/21/17 18:37 Dose: 600 mg Insulin Human Regular (Humulin R Low) 0 units SC ACHS ROLAND PRN Reason: Protocol Last Admin: 10/22/17 17:35 Dose: Not Given Lorazepam (Ativan) 1 mg IVP Q6H PRN; Protocol PRN Reason: Agitation Last Admin: 10/18/17 01:33 Dose: 1 mg Lorazepam (Ativan) 1 mg PO BID ORLAND PRN Reason: Protocol Last Admin: 10/22/17 17:32 Dose: 1 mg Multivitamins (Thera Tab) 1 tab PO 0800 [facility] Last Admin: 10/22/17 10:17 Dose: 1 tab Nicotine (Nicoderm Cq) 1 patch TD DAILY [facility] Last Admin: 10/22/17 10:16 Dose: 1 patch Oxcarbazepine (Trileptal) 450 mg PO BID ROLAND PRN Reason: Protocol Last Admin: 10/22/17 17:32 Dose: 450 mg Thiamine HCl (Vitamin B1 Tab) 100 mg PO DAILY [facility] Last Admin: 10/22/17 10:17 Dose: 100 mg - Labs Labs: 10/22/17 06:27 10/22/17 06:27 - Constitutional Appears: Well, Non-toxic - Head Exam Head Exam: ATRAUMATIC, NORMOCEPHALIC - Eye Exam Eye Exam: EOMI, Normal appearance - ENT Exam ENT Exam: Mucous Membranes Moist, Normal Oropharynx - Neck Exam Neck Exam: Normal Inspection - Respiratory Exam Respiratory Exam: Clear to Ausculation Bilateral, NORMAL BREATHING PATTERN. absent: Accessory Muscle Use - Cardiovascular Exam Cardiovascular Exam: RRR, +S1, +S2 - GI/Abdominal Exam GI & Abdominal Exam: Soft, Normal Bowel Sounds - Extremities Exam Extremities Exam: Normal Inspection. absent: Calf Tenderness - Back Exam Back Exam: NORMAL INSPECTION. 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 The pateint was initially profoundly confused, agitated, delirious., and hallucinating on the first 5 days of his hospital course. Psychiatry and neurology were consulted and started the patient on mood stabilizers, anxiolytics and AEDs, respectively. He also required different different level of restraints depending on how violent, disruptive, or combative he was. Currently, he is off restraints since 10/18/17 and has had an EEG performed on 10/21/17 that will likely not affect management. An MRI was never able to be performed secondary to the patient restlessness. Hematology Oncology was consulted for thrombocytopenia and recommended discontinuing a number of medications, which were, and resulted in a steady increase in the patient platelets to normal as of 10/22/17. An abdominal and pelvis CT was performed that showed no evidence of metastasis from prior testicular cancer but did show hepatic steatosis. Throughout the patient's hospital course he was counselled on abstaining from alcohol and drugs. Also, hepatitis panel was negative as was the work-up for HIT. Patient is stable for discharge medically. Family may need to be counselled. Plan: 1) Epilepsy and agitation in a patient with history of TBI and alcohol abuse - Trileptal 450 mg BID - Thorazine 10 mg BID - Ativan 1 mg PO BID - Ativan 1 mg IVP PRN q6h - Benadryl 50 mg q8h PRN for agitation - Neurology recommendations appreciated - Psychiatry recommendations appreciated - PT eval/treat, recommends HWS 1a) Benzodiazepine taper - Ativan 1 mg BID ROLAND - monitor for agitation 2) Malnutrition and history of alcoholism on AED - Folic acid, thiamine 3) Elevated blood pressure - Amlodipine increased to 10mg daily - Clonidine 0.1 mg BID PRN 4) Rhabdomyolysis - Resolved 5) Elevated LFTs secondary to alcohol abuse and possible drug induced - Enlarged liver with hepatic steatosis noted on CT scan - Avoid hepatotoxins - Continue to monitor 6) Thrombocytopenia, multifactorial in a patient with testicular cancer treated with chemoradiation and surgery. - Hematology consult appreciated, HIT assay, serotinin release assay; negative - Thrombocytopenia improving - Patient had CT C/A/P for history of metastatic testicular cancer; significant for hepatic steatosis - Peripheral smear reveals reduced white blood cells and reduced platelets without evidence of rouleoux formation or large sized platelets Disposition: Will discuss with family and discharge accordingly Case reviewed and discussed with Dr. Richmond. <Deon Richmond - Last Filed: 10/23/17 14:46> Objective - Vital Signs/Intake and Output Vital Signs (last 24 hours): Temp Pulse Resp BP Pulse Ox 98.2 F 76 18 138/89 97 10/23/17 08:09 10/23/17 08:09 10/23/17 08:09 10/23/17 09:30 10/23/17 08:09 Intake and Output: 10/23/17 10/23/17 06:59 18:59 Intake Total 840 Balance 840 - Labs Labs: 10/23/17 06:00 10/23/17 06:00 Attending/Attestation - Attestation I have personally seen and examined this patient.: Yes I have fully participated in the care of the patient.: Yes I have reviewed all pertinent clinical information, including history, physical exam and plan: Yes Notes (Text): 10/23/17 14:33 Medical record note made by the resident after discussion with my direction and input after the patient was personally seen and examined by me. I have reviewed the chart and agree that the record accurately reflects by personal performance of the history, physical exam, data review, and medical decision-making, in the course for the patient. I have also personally directed the plan of care. 52 yrs old Female with PMH of Traumatic brain injury, alcohol abuse, seizure disorder and hypertension who presented with altered mental status and seizures. He was found to have significant rhabdomyolysis which has been improved. Transaminitis is likely multifactorial secondary to ETOH abuse and medications.LFT are improvingHe is on trileptal as per neurology for seizure.Psychiatry is following patient. He is currently on thorazine.His mental status has improved to baseline. He is off restraints and 1.1.There is no sign of alcohol withdrawal. He will be discharged home and will follow up with PCP. Prognosis is guarded.
[2017-10-23 06:20] LABS: BASO # 0.03 K/mm3 (0.0-2.0); BASO % 0.6 % (0.0-3.0); EOS # 0.1 (0.0-0.7); EOS % 2.8 % (1.5-5.0); GRAN # 2.63 (1.4-6.5); GRAN % 52.6 % (50.0-68.0); HEMOGLOBIN 13.2 g/dL (14.0-18.0); LYMPH # 1.1 (1.2-3.4); LYMPH % 21.6 % (22.0-35.0); MEAN CELL VOLUME 95.1 fl (80.0-105.0); MEAN CORPUSCULAR HEMOGLOBIN 34.3 pg (25.0-35.0); MEAN CORPUSCULAR HGB CONC 36.1 g/dl (31.0-37.0); MEAN PLATELET VOLUME 11.4 fl (7.0-11.0); MONO # 1.1 (0.1-0.6); MONO % 22.4 % (1.0-6.0); RBC 3.85 10^6/uL (3.5-6.1); RED CELL DISTRIBUTION WIDTH 12.9 % (11.5-14.5)
[2017-10-23 06:32] LABS: ALB/GLOB RATIO 1.3 (1.1-1.8); ALBUMIN 3.8 g/dL (3.0-4.8); ALT/SGPT 96 U/L (7-56); AST/SGOT 75 U/L (17-59); BLOOD UREA NITROGEN 11 mg/dL (7-21); CALCIUM 9.8 mg/dL (8.4-10.5); GFR AFRICAN-AMERICAN > 60; GFR NON-AFRICAN AMERICAN > 60
[2017-10-23 06:55] LABS: CK-MB 1.3 ng/mL (0.0-3.6)
[2017-10-23] MEDS ORDERED: Sodium Chloride 0.9% 1,000 ML IV SCH (07:45)
[2017-10-23 08:10] VITALS: PULSE 76; RESP 18; TEMP 98.2; O2SAT 97
[2017-10-23] MEDS: Multivitamin Therapeutic Tab PO SCH (09:30)
[2017-10-23] MEDS: Insulin Reg-LOW-Coverage SC SCH ×2 (09:31→12:19)
[2017-10-23 09:35] VITALS: BP 138/89
--- NOTE | 2017-10-23 16:59 | CP.PCM.DIS ---
<Lane Mora - Last Filed: 10/23/17 16:55> Provider - Provider Date of Admission: 10/12/17 23:54 Attending physician: Deon Richmond MD Primary care physician: NO PRIMARY CARE PROVIDER Consults: Dr. Ayesha Key Time Spent in preparation of Discharge (in minutes): 45 Diagnosis - Discharge Diagnosis (1) Seizure Status: Acute (2) Thrombocytopenia Status: Acute (3) Transaminitis Status: Acute (4) Post-ictal confusion Status: Acute Hospital Course - Lab Results Lab Results: Most Recent Lab Values WBC 5.0 10^3/ul (4.5-11.0) 10/23/17 06:00 RBC 3.85 10^6/uL (3.5-6.1) 10/23/17 06:00 Hgb 13.2 g/dL (14.0-18.0) L 10/23/17 06:00 Hct 36.6 % (42.0-52.0) L 10/23/17 06:00 MCV 95.1 fl (80.0-105.0) 10/23/17 06:00 MCH 34.3 pg (25.0-35.0) 10/23/17 06:00 MCHC 36.1 g/dl (31.0-37.0) 10/23/17 06:00 RDW 12.9 % (11.5-14.5) 10/23/17 06:00 Plt Count 172 10^3/uL (120.0-450.0) 10/23/17 06:00 MPV 11.4 fl (7.0-11.0) H 10/23/17 06:00 Gran % 52.6 % (50.0-68.0) 10/23/17 06:00 Lymph % (Auto) 21.6 % (22.0-35.0) L 10/23/17 06:00 [place] % (Auto) 22.4 % (1.0-6.0) H 10/23/17 06:00 Eos % (Auto) 2.8 % (1.5-5.0) 10/23/17 06:00 Baso % (Auto) 0.6 % (0.0-3.0) 10/23/17 06:00 Gran # 2.63 (1.4-6.5) 10/23/17 06:00 Lymph # (Auto) 1.1 (1.2-3.4) L 10/23/17 06:00 [place] # (Auto) 1.1 (0.1-0.6) H 10/23/17 06:00 Eos # (Auto) 0.1 (0.0-0.7) 10/23/17 06:00 Baso # (Auto) 0.03 K/mm3 (0.0-2.0) 10/23/17 06:00 Neutrophils % (Manual) 42 % (50.0-70.0) L 10/20/17 06:00 Lymphocytes % (Manual) 32 % (22.0-35.0) 10/20/17 06:00 Atypical Lymphs % 1 % (0.0-0.0) H 10/20/17 06:00 Monocytes % (Manual) 20 % (1.0-6.0) H 10/20/17 06:00 Eosinophils % (Manual) 5 % (0.0-3.0) H 10/20/17 06:00 Platelet Evaluation Low (NORMAL) 10/20/17 06:00 Hep-Mayra Thrombocytopen Negative (Negative) 10/16/17 09:00 pO2 144 mm/Hg (30-55) H 10/13/17 06:00 VBG pH 7.44 (7.32-7.43) H 10/13/17 06:00 VBG pCO2 37.0 (40-60) L 10/13/17 06:00 VBG HCO3 25.1 mmol/l (21-28) 10/13/17 06:00 VBG Total CO2 26.2 mmol.L (22-28) 10/13/17 06:00 VBG O2 Sat (Calc) 99.4 % (40-65) H 10/13/17 06:00 VBG Base Excess 1.1 mmol/L (0.0-2.0) 10/13/17 06:00 VBG Potassium 3.0 mmol/L (3.6-5.2) L 10/13/17 06:00 Sodium 138.0 mmol/L (132-148) 10/13/17 06:00 Chloride 109.0 mmol/L (98-107) H 10/13/17 06:00 Glucose 87 mg/dl (75-110) 10/13/17 06:00 Lactate 1.5 mmol/L (0.7-2.1) 10/13/17 06:00 FiO2 21.0 % 10/13/17 06:00 Sodium 131 mmol/L (132-148) L 10/23/17 06:00 Potassium 3.8 mmol/L (3.6-5.0) 10/23/17 06:00 Chloride 94 mmol/L (98-107) L 10/23/17 06:00 Carbon Dioxide 27 mmol/L (21-33) 10/23/17 06:00 Anion Gap 13 (10-20) 10/23/17 06:00 BUN 11 mg/dL (7-21) 10/23/17 06:00 Creatinine 0.7 mg/dl (0.8-1.5) L 10/23/17 06:00 Est GFR ( Amer) > 60 10/23/17 06:00 Est GFR (Non-Af Amer) > 60 10/23/17 06:00 POC Glucose (mg/dL) 92 mg/dL (65-110) 10/23/17 11:10 Random Glucose 92 mg/dL (70-110) 10/23/17 06:00 Hemoglobin A1c 5.2 % (4.2-6.5) 10/14/17 07:40 Calcium 9.8 mg/dL (8.4-10.5) 10/23/17 06:00 Phosphorus 2.2 mg/dL (2.5-4.5) L 10/13/17 06:00 Magnesium 1.5 mg/dL (1.7-2.2) L 10/21/17 05:00 Total Bilirubin 1.0 mg/dL (0.2-1.3) 10/23/17 06:00 Direct Bilirubin 0.6 mg/dL (0.0-0.4) H 10/14/17 07:40 AST 75 U/L (17-59) H 10/23/17 06:00 ALT 96 U/L (7-56) H 10/23/17 06:00 Alkaline Phosphatase 59 U/L (38-126) 10/23/17 06:00 Lactate Dehydrogenase 627 U/L (333-699) 10/12/17 20:34 Total Creatine Kinase 380 U/L (35-230) H 10/23/17 06:00 CK-MB (CK-2) 1.3 ng/mL (0.0-3.6) 10/23/17 06:00 CK-MB (CK-2) % 0.0 % (2.5-3.0) L 10/15/17 08:00 Troponin I < 0.01 ng/mL 10/12/17 20:34 Total Protein 6.9 g/dL (5.8-8.3) 10/23/17 06:00 Albumin 3.8 g/dL (3.0-4.8) 10/23/17 06:00 Globulin 3.0 gm/dL 10/23/17 06:00 Albumin/Globulin Ratio 1.3 (1.1-1.8) 10/23/17 06:00 Triglycerides 382 mg/dL (35-160) H 10/14/17 07:40 Cholesterol 175 mg/dL (130-200) 10/14/17 07:40 LDL Cholesterol Direct 78 mg/dL (0-129) 10/14/17 07:40 HDL Cholesterol 60 mg/dL (29-60) 10/14/17 07:40 Amylase 41 U/L (35-125) 10/16/17 07:00 Lipase 118 U/L (23-300) 10/16/17 07:00 UF Heparin Interp Negative (Negative) 10/16/17 09:00 TSH 3rd Generation 3.68 mIU/mL (0.46-4.68) 10/14/17 07:40 Venous Blood Potassium 3.0 mmol/L (3.6-5.2) L 10/13/17 06:00 Urine Color Yellow (YELLOW) 10/12/17 23:20 Urine Appearance Sl cloudy (CLEAR) 10/12/17 23:20 Urine pH 6.0 (4.7-8.0) 10/12/17 23:20 Ur Specific Cornell 1.015 (1.005-1.035) 10/12/17 23:20 Urine Protein Trace mg/dL (<30 mg/dL) H 10/12/17 23:20 Urine Glucose (UA) Negative mg/dL (NEGATIVE) 10/12/17 23:20 Urine Ketones Trace mg/dL (NEGATIVE) H 10/12/17 23:20 Urine Blood Small (NEGATIVE) H 10/12/17 23:20 Urine Nitrate Negative (NEGATIVE) 10/12/17 23:20 Urine Bilirubin Negative (NEGATIVE) 10/12/17 23:20 Urine Urobilinogen 0.2 E.U./dL (<1 E.U./dL) 10/12/17 23:20 Ur Leukocyte Esterase Negative Danya/uL (NEGATIVE) 10/12/17 23:20 Urine RBC 1 - 3 /hpf (0-2) 10/12/17 23:20 Urine WBC 0 - 2 /hpf (0-6) 10/12/17 23:20 Ur Epithelial Cells 0 - 2 /hpf (0-5) 10/12/17 23:20 Urine Bacteria Few (NEG) 10/12/17 23:20 Urine Opiates Screen Negative (NEGATIVE) 10/12/17 23:20 Urine Methadone Screen Negative (NEGATIVE) 10/12/17 23:20 Ur Barbiturates Screen Negative (NEGATIVE) 10/12/17 23:20 Valproic Acid 40 ug/mL (50.0-100.0) L 10/14/17 07:40 Carbamazepine < 3 ug/mL (4.0-10.0) L 10/14/17 07:40 Ur Phencyclidine Scrn Negative (NEGATIVE) 10/12/17 23:20 Ur Amphetamines Screen Negative (NEGATIVE) 10/12/17 23:20 U Benzodiazepines Scrn Positive (NEGATIVE) 10/12/17 23:20 U Oth Cocaine Metabols Negative (NEGATIVE) 10/12/17 23:20 U Cannabinoids Screen Positive (NEGATIVE) H 10/12/17 23:20 Alcohol, Quantitative < 10 mg/dL (0-10) 10/12/17 20:34 Heparin-induced Plt Ab Negative (Negative) 10/16/17 09:00 MONICA UFH Low Dose 0.1 0 % Release 10/16/17 09:00 MONICA UFH Low Dose 0.5 0 % Release 10/16/17 09:00 MONICA UFH High Dose 100 0 % Release 10/16/17 09:00 Hepatitis A IgM Ab Negative (NEGATIVE) 10/15/17 08:00 Hep Bs Antigen Negative (NEGATIVE) 10/15/17 08:00 Hep B Core IgM Ab Negative (NEGATIVE) 10/15/17 08:00 Hepatitis C Antibody Negative (NEGATIVE) 10/15/17 08:00 - Hospital Course Hospital Course: 52 year old male with a past medical history of TBI, alcohol abuse, seizures, 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 The pateint was initially profoundly confused, agitated, delirious., and hallucinating on the first 5 days of his hospital course. Psychiatry and neurology were consulted and started the patient on mood stabilizers, anxiolytics and AEDs, respectively. He also required different different level of restraints depending on how violent, disruptive, or combative he was. Currently, he is off restraints since 10/18/17 and has had an EEG performed on 10/21/17 that will likely not affect management. An MRI was never able to be performed secondary to the patient restlessness. Hematology Oncology was consulted for thrombocytopenia and recommended discontinuing a number of medications, which were, and resulted in a steady increase in the patient platelets to normal as of 10/22/17. An abdominal and pelvis CT was performed that showed no evidence of metastasis from prior testicular cancer but did show hepatic steatosis. Throughout the patient's hospital course he was counselled on abstaining from alcohol and drugs. Also, hepatitis panel was negative as was the work-up for HIT. The family was counselled in detail about keeping alcohol out of the patient's access. He was discharged with the below written instructions and recommendations. - Date & Time of H&P Date of H&P: 10/23/17 Time of H&P: 16:58 Discharge Exam - Head Exam Head Exam: ATRAUMATIC, NORMOCEPHALIC - Eye Exam Eye Exam: EOMI, Normal appearance - ENT Exam ENT Exam: Mucous Membranes Moist, Normal Oropharynx - Neck Exam Neck exam: Normal Inspection - Respiratory Exam Respiratory Exam: Clear to PA & Lateral, NORMAL BREATHING PATTERN. absent: Accessory Muscle Use - Cardiovascular Exam Cardiovascular Exam: RRR, +S1, +S2 - GI/Abdominal Exam GI & Abdominal Exam: Normal Bowel Sounds. absent: Guarding - Extremities Exam Extremities exam: normal inspection - Back Exam Back exam: NORMAL INSPECTION. absent: CVA tenderness (L), CVA tenderness (R) - Neurological Exam Neurological exam: Alert, CN II-XII Intact, Oriented x3 - Psychiatric Exam Psychiatric exam: Normal Affect, Normal Mood - Skin Skin Exam: Dry, Intact, Normal Color, Warm Discharge Plan - Discharge Medications Prescriptions: amLODIPine [Norvasc] 10 mg PO DAILY #30 tab chlorproMAZINE [Thorazine] 10 mg PO BID #60 tab Folic Acid 1 mg PO DAILY #30 tab LORazepam [Ativan] See Taper PO DAILY #12 tab Multivitamin Therapeutic Tab [Thera Tab] 1 tab PO DAILY #30 tab Nicotine 14 mg/24 hr [Nicoderm CQ] 1 patch TD DAILY #14 patch OXcarbazepine [Trileptal] 450 mg PO BID #60 tab Thiamine [Vitamin B1 Tab] 100 mg PO DAILY #30 tab - Follow Up Plan Condition: GUARDED Disposition: HOME/ ROUTINE Instructions: Seizures, Adult (DC), Alcohol Withdrawal (DC), Epilepsy (DC), Epilepsy (GEN), Myelodysplastic Syndromes (DC), Myelodysplastic Syndromes (GEN) Additional Instructions: You are being discharged to home. 1) Follow up with primary care doctor at [facility] Call [phone] to schedule an appointment. 2) Follow up with [facility] [address] [place] [address] ([address]) Access from [employer] - [address]. 3) Do not skip medicine. Otherwise it will cause seizure or mood aggravation. 4) Patient to follow up with a neurologist, Dr. Hodge or Dr. Fay 5) Patient was discharged with an Ativan taper: 1 mg BID for two days and 1 mg HS for two days. Referrals: [facility] [Outside] [facility] at [facility] [Outside] <Deon Richmond - Last Filed: 10/23/17 17:12> Provider - Provider Date of Admission: 10/12/17 23:54 Attending physician: Deon Richmond MD Primary care physician: NO PRIMARY CARE PROVIDER Hospital Course - Lab Results Lab Results: Most Recent Lab Values WBC 5.0 10^3/ul (4.5-11.0) 10/23/17 06:00 RBC 3.85 10^6/uL (3.5-6.1) 10/23/17 06:00 Hgb 13.2 g/dL (14.0-18.0) L 10/23/17 06:00 Hct 36.6 % (42.0-52.0) L 10/23/17 06:00 MCV 95.1 fl (80.0-105.0) 10/23/17 06:00 MCH 34.3 pg (25.0-35.0) 10/23/17 06:00 MCHC 36.1 g/dl (31.0-37.0) 10/23/17 06:00 RDW 12.9 % (11.5-14.5) 10/23/17 06:00 Plt Count 172 10^3/uL (120.0-450.0) 10/23/17 06:00 MPV 11.4 fl (7.0-11.0) H 10/23/17 06:00 Gran % 52.6 % (50.0-68.0) 10/23/17 06:00 Lymph % (Auto) 21.6 % (22.0-35.0) L 10/23/17 06:00 [place] % (Auto) 22.4 % (1.0-6.0) H 10/23/17 06:00 Eos % (Auto) 2.8 % (1.5-5.0) 10/23/17 06:00 Baso % (Auto) 0.6 % (0.0-3.0) 10/23/17 06:00 Gran # 2.63 (1.4-6.5) 10/23/17 06:00 Lymph # (Auto) 1.1 (1.2-3.4) L 10/23/17 06:00 [place] # (Auto) 1.1 (0.1-0.6) H 10/23/17 06:00 Eos # (Auto) 0.1 (0.0-0.7) 10/23/17 06:00 Baso # (Auto) 0.03 K/mm3 (0.0-2.0) 10/23/17 06:00 Neutrophils % (Manual) 42 % (50.0-70.0) L 10/20/17 06:00 Lymphocytes % (Manual) 32 % (22.0-35.0) 10/20/17 06:00 Atypical Lymphs % 1 % (0.0-0.0) H 10/20/17 06:00 Monocytes % (Manual) 20 % (1.0-6.0) H 10/20/17 06:00 Eosinophils % (Manual) 5 % (0.0-3.0) H 10/20/17 06:00 Platelet Evaluation Low (NORMAL) 10/20/17 06:00 Hep-Mayra Thrombocytopen Negative (Negative) 10/16/17 09:00 pO2 144 mm/Hg (30-55) H 10/13/17 06:00 VBG pH 7.44 (7.32-7.43) H 10/13/17 06:00 VBG pCO2 37.0 (40-60) L 10/13/17 06:00 VBG HCO3 25.1 mmol/l (21-28) 10/13/17 06:00 VBG Total CO2 26.2 mmol.L (22-28) 10/13/17 06:00 VBG O2 Sat (Calc) 99.4 % (40-65) H 10/13/17 06:00 VBG Base Excess 1.1 mmol/L (0.0-2.0) 10/13/17 06:00 VBG Potassium 3.0 mmol/L (3.6-5.2) L 10/13/17 06:00 Sodium 138.0 mmol/L (132-148) 10/13/17 06:00 Chloride 109.0 mmol/L (98-107) H 10/13/17 06:00 Glucose 87 mg/dl (75-110) 10/13/17 06:00 Lactate 1.5 mmol/L (0.7-2.1) 10/13/17 06:00 FiO2 21.0 % 10/13/17 06:00 Sodium 131 mmol/L (132-148) L 10/23/17 06:00 Potassium 3.8 mmol/L (3.6-5.0) 10/23/17 06:00 Chloride 94 mmol/L (98-107) L 10/23/17 06:00 Carbon Dioxide 27 mmol/L (21-33) 10/23/17 06:00 Anion Gap 13 (10-20) 10/23/17 06:00 BUN 11 mg/dL (7-21) 10/23/17 06:00 Creatinine 0.7 mg/dl (0.8-1.5) L 10/23/17 06:00 Est GFR ( Amer) > 60 10/23/17 06:00 Est GFR (Non-Af Amer) > 60 10/23/17 06:00 POC Glucose (mg/dL) 92 mg/dL (65-110) 10/23/17 11:10 Random Glucose 92 mg/dL (70-110) 10/23/17 06:00 Hemoglobin A1c 5.2 % (4.2-6.5) 10/14/17 07:40 Calcium 9.8 mg/dL (8.4-10.5) 10/23/17 06:00 Phosphorus 2.2 mg/dL (2.5-4.5) L 10/13/17 06:00 Magnesium 1.5 mg/dL (1.7-2.2) L 10/21/17 05:00 Total Bilirubin 1.0 mg/dL (0.2-1.3) 10/23/17 06:00 Direct Bilirubin 0.6 mg/dL (0.0-0.4) H 10/14/17 07:40 AST 75 U/L (17-59) H 10/23/17 06:00 ALT 96 U/L (7-56) H 10/23/17 06:00 Alkaline Phosphatase 59 U/L (38-126) 10/23/17 06:00 Lactate Dehydrogenase 627 U/L (333-699) 10/12/17 20:34 Total Creatine Kinase 380 U/L (35-230) H 10/23/17 06:00 CK-MB (CK-2) 1.3 ng/mL (0.0-3.6) 10/23/17 06:00 CK-MB (CK-2) % 0.0 % (2.5-3.0) L 10/15/17 08:00 Troponin I < 0.01 ng/mL 10/12/17 20:34 Total Protein 6.9 g/dL (5.8-8.3) 10/23/17 06:00 Albumin 3.8 g/dL (3.0-4.8) 10/23/17 06:00 Globulin 3.0 gm/dL 10/23/17 06:00 Albumin/Globulin Ratio 1.3 (1.1-1.8) 10/23/17 06:00 Triglycerides 382 mg/dL (35-160) H 10/14/17 07:40 Cholesterol 175 mg/dL (130-200) 10/14/17 07:40 LDL Cholesterol Direct 78 mg/dL (0-129) 10/14/17 07:40 HDL Cholesterol 60 mg/dL (29-60) 10/14/17 07:40 Amylase 41 U/L (35-125) 10/16/17 07:00 Lipase 118 U/L (23-300) 10/16/17 07:00 UF Heparin Interp Negative (Negative) 10/16/17 09:00 TSH 3rd Generation 3.68 mIU/mL (0.46-4.68) 10/14/17 07:40 Venous Blood Potassium 3.0 mmol/L (3.6-5.2) L 10/13/17 06:00 Urine Color Yellow (YELLOW) 10/12/17 23:20 Urine Appearance Sl cloudy (CLEAR) 10/12/17 23:20 Urine pH 6.0 (4.7-8.0) 10/12/17 23:20 Ur Specific Cornell 1.015 (1.005-1.035) 10/12/17 23:20 Urine Protein Trace mg/dL (<30 mg/dL) H 10/12/17 23:20 Urine Glucose (UA) Negative mg/dL (NEGATIVE) 10/12/17 23:20 Urine Ketones Trace mg/dL (NEGATIVE) H 10/12/17 23:20 Urine Blood Small (NEGATIVE) H 10/12/17 23:20 Urine Nitrate Negative (NEGATIVE) 10/12/17 23:20 Urine Bilirubin Negative (NEGATIVE) 10/12/17 23:20 Urine Urobilinogen 0.2 E.U./dL (<1 E.U./dL) 10/12/17 23:20 Ur Leukocyte Esterase Negative Danya/uL (NEGATIVE) 10/12/17 23:20 Urine RBC 1 - 3 /hpf (0-2) 10/12/17 23:20 Urine WBC 0 - 2 /hpf (0-6) 10/12/17 23:20 Ur Epithelial Cells 0 - 2 /hpf (0-5) 10/12/17 23:20 Urine Bacteria Few (NEG) 10/12/17 23:20 Urine Opiates Screen Negative (NEGATIVE) 10/12/17 23:20 Urine Methadone Screen Negative (NEGATIVE) 10/12/17 23:20 Ur Barbiturates Screen Negative (NEGATIVE) 10/12/17 23:20 Valproic Acid 40 ug/mL (50.0-100.0) L 10/14/17 07:40 Carbamazepine < 3 ug/mL (4.0-10.0) L 10/14/17 07:40 Ur Phencyclidine Scrn Negative (NEGATIVE) 10/12/17 23:20 Ur Amphetamines Screen Negative (NEGATIVE) 10/12/17 23:20 U Benzodiazepines Scrn Positive (NEGATIVE) 10/12/17 23:20 U Oth Cocaine Metabols Negative (NEGATIVE) 10/12/17 23:20 U Cannabinoids Screen Positive (NEGATIVE) H 10/12/17 23:20 Alcohol, Quantitative < 10 mg/dL (0-10) 10/12/17 20:34 Heparin-induced Plt Ab Negative (Negative) 10/16/17 09:00 MONICA UFH Low Dose 0.1 0 % Release 10/16/17 09:00 MONICA UFH Low Dose 0.5 0 % Release 10/16/17 09:00 MONICA UFH High Dose 100 0 % Release 10/16/17 09:00 Hepatitis A IgM Ab Negative (NEGATIVE) 10/15/17 08:00 Hep Bs Antigen Negative (NEGATIVE) 10/15/17 08:00 Hep B Core IgM Ab Negative (NEGATIVE) 10/15/17 08:00 Hepatitis C Antibody Negative (NEGATIVE) 10/15/17 08:00 Attending/Attestation - Attestation I have personally seen and examined this patient.: Yes I have fully participated in the care of the patient.: Yes I have reviewed all pertinent clinical information, including history, physical exam and plan: Yes Notes (Text): 10/23/17 17:09 Medical record note made by the resident after discussion with my direction and input after the patient was personally seen and examined by me. I have reviewed the chart and agree that the record accurately reflects by personal performance of the history, physical exam, data review, and medical decision-making, in the course for the patient. I have also personally directed the plan of care . 52 yrs old male with PMH of Traumatic brain injury, alcohol abuse, seizure disorder and hypertension who presented with altered mental status and seizures. He was found to have significant rhabdomyolysis which has been improved. Transaminitis is likely multifactorial secondary to ETOH abuse and medications.LFT are improving.He is on trileptal as per neurology for seizure.Psychiatry is following patient. He is currently on thorazine.His mental status has improved to baseline. He is off restraints and 1.1.There is no sign of alcohol withdrawal.His thrombocytopenia has resolved. The issue of ongoing alcohol abuse and compliance with medication was discussed in detail with patient. Patient condition was discussed with family in family meeting in detail.Management plan was discussed. He will be discharged home and will follow up with PCP. Prognosis is guarded.
--- NOTE | 2017-10-23 18:39 | CP.PCM.PN ---
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 Heme-onc was consulted for thrombocytopenia and concern for HIT. Seen and examined at bedside. Oriented to self, location, and time. Denies acute complaints, including chest pain, shortness of breath, or emesis. Pending d/c today as per primary team. Objective - Vital Signs/Intake and Output Vital Signs (last 24 hours): Temp Pulse Resp BP Pulse Ox 98.2 F 76 18 138/89 97 10/23/17 08:09 10/23/17 08:09 10/23/17 08:09 10/23/17 09:30 10/23/17 08:09 Intake and Output: 10/23/17 10/23/17 06:59 18:59 Intake Total 840 240 Balance 840 240 - Labs Labs: 10/23/17 06:00 10/23/17 06:00 - Additional Findings Additional findings: - Constitutional Appears: Non-toxic, No Acute Distress, Unkempt, bilateral UE restraints - Head Exam Head Exam: ATRAUMATIC, NORMAL INSPECTION, NORMOCEPHALIC - Eye Exam Eye Exam: EOMI, Normal appearance. absent: Conjunctival injection, Scleral icterus Pupil Exam: absent: Irregular, Unequal - ENT Exam ENT Exam: Mucous Membranes Moist - Neck Exam Neck exam: Positive for: Full Rom, Normal Inspection - Respiratory Exam Respiratory Exam: Decreased Breath Sounds (mildly decreased breath sounds in all breaux, otherwise CTAB), Clear to Auscultation Bilateral, NORMAL BREATHING PATTERN. absent: Accessory Muscle Use, Chest Wall Tenderness, Rales, Rhonchi, Wheezes - Cardiovascular Exam Cardiovascular Exam: REGULAR RHYTHM, RRR, +S1, +S2. absent: Bradycardia, Tachycardia, Irregular Rhythm, JVD, +S4 - GI/Abdominal Exam GI & Abdominal Exam: Normal Bowel Sounds, Hepatosplenomegaly (spleen palpable laterally from left flank), Soft. absent: Distended, Firm, Rigid, Tenderness - Extremities Exam Extremities exam: Positive for: normal inspection. Negative for: calf tenderness, pedal edema, tenderness Additional comments: scattered echymosis and two small scabs along anterior portion of bilateral LE in various states of healing - Neurological Exam Additional comments: awake and alert, oriented to self/location/year motor grossly intact and equal, moving all extremities spontaneously - Psychiatric Exam Psychiatric exam: Normal Affect, Normal Mood - Skin Skin Exam: Dry, Intact (except as noted in extremities exam), Normal Color, Warm Assessment and Plan - Assessment and Plan (Free Text) Assessment: This is a 52 y/o Male with pmh of traumatic ICH (2/2 seizure episode), TBI, chronic alcohol abuse, gerd, htn, seizure disorders, heavy tobacco abuse, mood disorder, and hx of metastatic testicular cancer s/p surgery/chemo/radiation who presented to [facility] after a witnessed seizure at home. Heme-onc was consulted for thrombocytopenia and concern for HIT. Plan: Metastatic testicular ca s/p surgery/chemo/radiation EtOH abuse Tobacco abuse HTN Hx traumatic ICH Seizure disorder Thrombocytopenia - resolved Leukopenia - resolved Elevated LFTs - improving Rhabdo - improved -Plts 172 today -leukopenia resolved, WBCs 5 today -HIT panel negative -On multiple medications that can cause thrombocytopenia, can consider switching protonix to pepcid, however needs to be on his antiepileptics due to seizure disorder and hx of ICH 2/2 seizures; EtOH hx also likely contributory, and depending on what chemo and radiation regimen he underwent for his cancer, may also have contributory effect -Neuro following, appreciate their input; defer to neuro for appropriate anti- epileptic medications in setting of thrombocytopenia and elevated LFTs -LFT elevations likely alcoholic hepatitis vs medication-induced; improving, almost resolved -CT chest/abd/pelvis negative for new metastatic disease -Thrombocytopenia appears resolved, likely 2/2 alcohol abuse Patient reviewed and discussed at length with attending, Dr. Key
== END 2017-10-23 12:37 | disposition home health service (06) | DRG 532 ==
LOC: ED 20:24 → ERH 23:54 → 2RNO 10-13 02:08 → 5RNO 10-21 14:55
PROVIDERS: ADMIT Internal Medicine; ATTEND Internal Medicine
DX: G40.509 Epileptic seizures related to external causes, not intractable, without status epilepticus (principal); M62.82 Rhabdomyolysis; Z87.820 Personal history of traumatic brain injury; E87.6 Hypokalemia; D61.818 Other pancytopenia; F10.239 Alcohol dependence with withdrawal, unspecified; C79.89 Secondary malignant neoplasm of other specified sites; F05 Delirium due to known physiological condition; I10 Essential (primary) hypertension; K21.9 Gastro-esophageal reflux disease without esophagitis; K29.70 Gastritis, unspecified, without bleeding; K76.0 Fatty (change of) liver, not elsewhere classified; R79.89 Other specified abnormal findings of blood chemistry; Z85.47 Personal history of malignant neoplasm of testis; Z78.1 Physical restraint status; Z92.3 Personal history of irradiation; Z92.21 Personal history of antineoplastic chemotherapy

== ENCOUNTER 2017-10-29 18:29 | Emergency (ER) | payer MEDICAID ==
[2017-10-29 19:05] VITALS: BMI 27.2
[2017-10-29 19:30] VITALS: BP 173/94; PULSE 113; RESP 18; TEMP 98.2; O2SAT 94
--- NOTE | 2017-10-29 21:25 | ED PDOC ---
Arrival/HPI - General Chief Complaint: Seizure Time Seen by Provider: 10/29/17 19:04 Historian: Patient - History of Present Illness Narrative History of Present Illness (Text): 10/29/17 19:40 Dewayne Bernal is a 52 year old male, whose past medical history includes seizure disorder, traumatic brain injury, chronic alcohol abuse, hypertension, mood disrder, and GERD, who presents to the Emergency department status post seizure. Patient had a witnessed seizure at home prior to arrival. Patient was recently discharged from the hospital following treatment of recurrent seizures and placed on Trileptal. Patient states he feels fine otherwise and denies any fever, chills, chest pain, shortness of breath, nausea, vomiting, diarrhea, urinary symptoms, back pain, neck pain, headache, dizziness, or any other complaints. Symptom Onset: Gradual Symptom Course: Unchanged Activities at Onset: Light Context: Home Past Medical History - Provider Review Nursing Documentation Reviewed: Yes - Infectious Disease Hx of Infectious Diseases: None - Tetanus Immunization Tetanus Immunization: Unknown - Cardiac Hx Cardiac Disorders: Yes Hx Hypertension: Yes - Pulmonary Hx Respiratory Disorders: Yes Other/Comment: recently lung and stomach nodules found - Neurological Hx Neurological Disorder: Yes (tramatic brain injury,syncope) Hx Seizures: Yes - HEENT Hx HEENT Disorder: Yes (uses eyeglasses) - Hematological/Oncological Hx Cancer: Yes (testicular; chemo/radiation) - Integumentary Hx Dermatological Disorder: Yes Other/Comment: old and new kaiden to back of head, scrapes ad abrasions to arms and legs - Musculoskeletal/Rheumatological Hx Musculoskeletal Disorders: Yes Hx Falls: Yes Hx Fractures: Yes (left wrist, shoulder) Other/Comment: TBI 08/23 fall 01/25/2014 - Gastrointestinal Hx Gastroesophageal Reflux: Yes - Genitourinary/Gynecological Hx Prostate Cancer: Yes (ONE TESTICLE REMOVED) - Psychiatric Hx Psychophysiologic Disorder: Yes (etoh and smoker) Hx Bipolar Disorder: Yes Hx Depression: Yes Hx Substance Use: No - Past Surgical History Past Surgical History: Unable to Obtain - Surgical History Hx Musculoskeletal Surgery: Yes (cancerous lymph node found on spine) - Anesthesia Hx Anesthesia Reactions: No Hx Malignant Hyperthermia: No - Suicidal Assessment Feels Threatened In Home Enviroment: No Family/Social History - Physician Review Nursing Documentation Reviewed: Yes Family/Social History: Unknown Family HX Smoking Status: Heavy Smoker > 10 Cigarettes Daily Hx Alcohol Use: No Hx Substance Use: No Hx Substance Use Treatment: No Allergies/Home Meds Allergies/Adverse Reactions: Allergies No Known Allergies Allergy (Verified 10/12/17 20:25) Review of Systems - Physician Review All systems were reviewed & negative as marked: Yes - Review of Systems Constitutional: Normal. absent: Fevers Eyes: Normal ENT: Normal Respiratory: Normal. absent: SOB, Cough Cardiovascular: Normal. absent: Chest Pain Gastrointestinal: Normal. absent: Abdominal Pain, Diarrhea, Nausea, Vomiting Genitourinary Male: Normal. absent: Dysuria, Frequency, Hematuria, Urinary Output Changes Musculoskeletal: Normal. absent: Back Pain, Neck Pain Skin: Normal. absent: Rash Neurological: Seizure. absent: Headache, Dizziness Endocrine: Normal Hemo/Lymphatic: Normal Psychiatric: Normal Physical Exam Vital Signs Reviewed: Yes Vital Signs Temp Pulse Resp BP Pulse Ox 10/29/17 19:10 98.2 F 113 H 18 173/94 H 94 L Temperature: Afebrile Blood Pressure: Hypertensive Pulse: Regular Respiratory Rate: Normal Appearance: Positive for: Well-Appearing, Non-Toxic, Comfortable Pain Distress: None Mental Status: Positive for: Alert and Oriented X 3 - Systems Exam Head: Present: Normocephalic, Abrasion (Abrasion to left forehead) Pupils: Present: PERRL Extroacular Muscles: Present: EOMI Conjunctiva: Present: Normal Mouth: Present: Moist Mucous Membranes Neck: Present: Normal Range of Motion. No: Meningeal Signs, MIDLINE TENDERNESS , Paraspinal Tenderness Respiratory/Chest: Present: Clear to Auscultation, Good Air Exchange. No: Respiratory Distress, Accessory Muscle Use Cardiovascular: Present: Regular Rate and Rhythm, Normal S1, S2. No: Murmurs Abdomen: No: Tenderness, Distention, Peritoneal Signs Back: Present: Normal Inspection Upper Extremity: Present: Normal Inspection. No: Cyanosis, Edema Lower Extremity: Present: Normal Inspection. No: Edema Neurological: Present: GCS=15, CN II-XII Intact, Speech Normal, Motor Func Grossly Intact, Normal Sensory Function, Normal Cerebellar Funct, Gait Normal, Memory Normal Skin: Present: Warm, Dry, Normal Color. No: Rashes Psychiatric: Present: Alert, Oriented x 3, Normal Insight, Normal Concentration Medical Decision Making ED Course and Treatment: 10/29/17 19:40 Impression: 52 year old male presented s/p witnessed seizure prior to arrival. Differential Diagnosis included but are not limited to: seizure disorder Plan: -- Trileptal -- Reassess and disposition Prior Visits: Notes and results from previous visits were reviewed. On 10/12/2017, pt was seen in the Emergency department for recurrent seizures. Pt was admitted to the hospital for further evaluation. Progress Notes: 10/29/17 19:38 Case was discussed with Dr. Hodge, neurologist, who is aware and agrees with plan. States to increase pt's Trileptal dosage and d/c home. 10/29/17 20:09 On re-evaluation, patient feels better and is in no acute distress. I have discussed the results and plan with the patient, who expresses understanding. Patient in agreement with plan to be discharged home. Patient is stable for discharge. Patient and family instructed to follow up with physician or return if symptoms worsen or new concerning symptoms arise. - Medication Orders Current Medication Orders: Discontinued Medications Oxcarbazepine (Trileptal) 150 mg PO STAT STA PRN Reason: Protocol Stop: 10/29/17 19:43 Last Admin: 10/29/17 20:05 Dose: 150 mg - Scribe Statement The provider has reviewed the documentation as recorded by the Chasidy Villalta Provider Scribe Attestation: All medical record entries made by the Scribe were at my direction and personally dictated by me. I have reviewed the chart and agree that the record accurately reflects my personal performance of the history, physical exam, medical decision making, and the department course for this patient. I have also personally directed, reviewed, and agree with the discharge instructions and disposition. Disposition/Present on Arrival - Present on Arrival Any Indicators Present on Arrival: No History of DVT/PE: No History of Uncontrolled Diabetes: No Urinary Catheter: No History of Decub. Ulcer: No History Surgical Site Infection Following: None - Disposition Have Diagnosis and Disposition been Completed?: Yes Diagnosis: Seizure disorder Disposition: HOME/ ROUTINE Disposition Time: 20:09 Condition: GOOD Discharge Instructions (ExitCare): Seizures, Adult (DC) Prescriptions: OXcarbazepine [Trileptal] 600 mg PO BID #60 tab Referrals: John Hodge MD [Staff Provider] - Follow up with primary Orlando Doll MD [Primary Care Provider] - Follow up with primary Forms: Stand In (Indonesian)
== END 2017-10-29 20:09 | disposition home or self-care (01) ==
LOC: ED 18:29
DX: G40.909 Epilepsy, unspecified, not intractable, without status epilepticus (principal)